=== PATIENT | male | born 1940 | race Caucasian/White ===

== ENCOUNTER 2018-04-24 16:16 | Inpatient (IN) ==
[2018-04-24] MEDS ORDERED: Acetaminophen 325 MG TABLET PO PRN (17:24)
[2018-04-24] MEDS ORDERED: Mag Hydrox/Al Hydrox/Simeth 30 ML UDC PO PRN (17:26)
[2018-04-24] MEDS ORDERED: Dextrose Gel 15 GM/37.5 ML TUBE PO PRN ×2 (17:35)
[2018-04-24] MEDS ORDERED: *HR* Dextrose 50 % in Water (Syg) 50 ML SYRINGE IVP PRN (17:35)
[2018-04-24] MEDS ORDERED: D5% in Water 1,000 ML IVC PRN (17:35)
[2018-04-24] MEDS: Sulfamethoxazole/Trimeth DS 1 EACH TABLET PO SCH (20:41)
[2018-04-24] MEDS: Furosemide 40 MG TABLET PO SCH (20:41)
[2018-04-24] MEDS: Apixaban 5 MG TABLET PO SCH (20:42)
[2018-04-24] MEDS: *HR* Metformin 500 MG TABLET PO SCH (20:42)
[2018-04-24] MEDS: Sucralfate 1 GM TABLET PO SCH (20:42)
[2018-04-24] MEDS: Amoxicillin/Clavulanate 500 MG TABLET PO SCH (20:42)
[2018-04-24] MEDS: Insulin LISPRO 300 UNITS/3 ML VIAL SQ SCH (20:49)
[2018-04-25 05:43] LABS: Hematocrit 31.7 % (37.5-50.1); Hemoglobin 9.9 g/dL (12.9-16.9); Mean Corpuscular HGB Conc 31.2 g/dL (31.6-35.5); Mean Corpuscular Volume 76.8 fL (83.0-100.0); Mean Platelet Volume 8.8 fL (9.4-12.4); Platelet Count 164 K/mcL (140-400); Red Blood Count 4.13 M/mcL (4.19-5.50)
[2018-04-25 05:59] LABS: BUN/Creatinine Ratio 14 (6-26); Blood Urea Nitrogen 18 mg/dL (8-23); Calcium 8.5 mg/dL (8.6-10.3); Carbon Dioxide 27 mEq/L (23-29); Chloride 104 mEq/L (98-107); Glucose 149 mg/dL (70-105); Osmolality,Calculated 291 (280-300); Potassium 3.2 mEq/L (3.5-5.1); Sodium 138 mEq/L (136-145); eGFR For Non-African Americans 52 (> 60)
[2018-04-25] MEDS: Sucralfate 1 GM TABLET PO SCH ×4 (08:13→21:45)
[2018-04-25] MEDS: *HR* Metformin 500 MG TABLET PO SCH ×2 (08:14→21:44)
[2018-04-25] MEDS: Aspirin Enteric Coated 81 MG Tablet PO SCH (08:14)
[2018-04-25] MEDS: Furosemide 40 MG TABLET PO SCH ×2 (08:14→21:44)
[2018-04-25] MEDS: Lisinopril 20 MG TABLET PO SCH (08:14)
[2018-04-25] MEDS: Sulfamethoxazole/Trimeth DS 1 EACH TABLET PO SCH ×2 (08:14→21:43)
[2018-04-25] MEDS: Insulin LISPRO 300 UNITS/3 ML VIAL SQ SCH ×4 (08:15→21:44)
[2018-04-25] MEDS: Amoxicillin/Clavulanate 500 MG TABLET PO SCH ×3 (08:15→21:43)
[2018-04-25] MEDS: Apixaban 5 MG TABLET PO SCH ×2 (08:15→21:44)
[2018-04-25 09:25] LABS: C-Reactive Protein 67 mg/L (Less than 10)
[2018-04-25] MEDS ORDERED: Magnesium Sulfate 1 GM in D5% in Water 100 ML IVPB ONE (09:26)
--- NOTE | 2018-04-25 12:22 | Internal Med History&Physical ---
Date of Encounter: 04/25/18 Time of Encounter: 12:20 Assessment and Plan (1) Closed fracture of left elbow Current visit: Yes Status: Acute No acute issues. Left arm remains in soft cast with distal CV checks normal. Patient denies any discomforts to left arm. We will continue with physical therapy as tolerated. Patient to continue follow-up as outpatient with orthopedics. Qualifiers: Encounter type: initial encounter Qualified Code(s): S42.402A - Unspecified fracture of lower end of left humerus, initial encounter for closed fracture (2) UGI bleed Current visit: No Status: Acute No acute issues at this time. Patient shows no signs of active bleeding. Most recent hemoglobin was 9.9. Abdomen appears nonacute on exam. Patient is to follow up with GI as an outpatient. We will continue with serial labs to monitor patient's hemoglobin. Vital signs remained stable. Patient is no longer on Coumadin and started on Eliquis (3) PVD (peripheral vascular disease) Current visit: Yes Status: Chronic No acute issues at this time. Patient has recent history surgery at [facility] with a partial amputation of the second left toe and debridement of the lateral tip of the left great toe. Wound care orders were received by wound care after contacting surgeon from [facility]. Surgical wounds appear dry with no signs of infection noted. We will continue per wound care orders. (4) Atrial fibrillation Current visit: No Status: Chronic No acute issues. Heart rate remains irregular with a controlled ventricular rate less than 100. We will continue with current medications. Vital signs are stable. Qualifiers: Atrial fibrillation type: unspecified Qualified Code(s): I48.91 - Unspecified atrial fibrillation (5) Diabetes mellitus type 2 in nonobese Current visit: No Status: Chronic No acute issues. Patient's glucoses been well controlled with recent fingersticks less than 150. We will continue with current medications. Internal Medicine - H&P: HPI Chief complaint: left elbow fractue Admitted From: Intrahospital Transfer Plans for Post Hospital Care: Home History of present illness: Mr. Boswell is a 77 year old male , who was admitted to this facility for rehabilitation due to deconditioning. Patient was recently admitted to [facility] after presenting into the emergency department with episodes of GI bleeding. Per medical records patient had melena over the past few weeks since his recent admission to [facility] in [place] where he was evaluated for severe peripheral vascular disease. He was discharged at that time on Coumadin and at the time of his admission to [facility] he showed an INR of 12.3. His hemoglobin at that time was 9.1. Per medical records after presenting to the ED patient became hemodynamically unstable, resulting in admission to the ICU for further fluid resuscitation and support. Patient's INR was eventually reversed with the use of vitamin K. Patient was evaluated by GI service and at that time was determined not to have active GI bleed and recommendations for continued follow-up for EGD as an outpatient was made. Patient Coumadin was discontinued and he was discharged on Eliquis. Patient's most recent hemoglobin was 9.9 and continues to show no signs of active bleeding. Patient also presents with a partial amputation of his second left toe, with several sutures in place to the dorsal side. The tip of the left second toe shows dry eschar. Patient also has some debridement to the tip of the left lateral great toe, also with eschar in place. Wound care has contacted the surgeon from [facility] and received wound care orders. No drainage noted from either site and no signs of active infection. Patient denies any discomforts to the foot. Patient currently appears relaxed and denies any discomforts or shortness of breath. Past Med Surg Social Fam HX - Past Medical History Medical history: DVT, diabetes, hypertension Psychiatric history: no psych history - Past Surgical History Surgical History: no surgical history Additional surgical history: left 2nd toe amputated (about 3 weeks ago) - Social History Smoking Status: Never smoker Smokeless Tobacco Status: No Alcohol use: none Drug use: none - Family History Mother Hx Family Neurologic Disorders: Yes (CVA) Father Adopted: No Family Member Ethnicity: Non- Living Status: Hx Family Cardiac Disorders: No Hx Family Respiratory Disorders: No Hx Family Cancer: No Hx Family GI Disorders: No Hx Family Endocrine Disorder: No Hx Family Neuromuscular Disorders: No Hx Family Neurologic Disorders: No Hx Family HEENT Disorders: No Hx Family Autoimmune Disorders: Yes Internal Medicine - H&P: Meds metFORMIN [Glucophage] 500 mg PO BID 07/07/16 [History] Aspirin Enteric Coated [Aspirin EC] 81 mg PO DAILY 07/13/17 [History] Atorvastatin [Lipitor] 40 mg PO DAILY 07/13/17 [History] Furosemide [Lasix] 40 mg PO BID 07/13/17 [History] Amoxicillin/Clavulanate [Augmentin] 500 mg PO TID 04/21/18 [History] Lisinopril [Zestril] 20 mg PO DAILY 04/21/18 [History] Pantoprazole Sodium [Protonix] 40 mg PO DAILY 04/21/18 [History] Sulfamethoxazole/Trimeth DS [Bactrim Ds] 1 tab PO BID 04/21/18 [History] Cymbalta 20 mg PO DAILY 04/22/18 [History] Apixaban [Eliquis] 5 mg PO BID #60 tablet 04/24/18 [Rx] Metoprolol [Lopressor] 25 mg PO BID #60 tablet 04/24/18 [Rx] Sucralfate [Carafate] 1 gm PO QIDAC tablet 04/24/18 [Rx] 3 Allergy/AdvReac Type Severity Reaction Status Date / Time No Known Allergies Allergy Verified 04/22/18 08:11 All Systems PM: A 10-system review of systems was performed and is negative for pertinent findings except as documented above in the HPI. - Constitutional Constitutional: as per HPI, no chills, no fever(s), no night sweats - EENT Eyes: no change in vision, no discharge, no pain, no photophobia Ears: no ear discharge, no ear pain, no tinnitus Nose, mouth and throat: no dysphagia, no nasal discharge, no neck pain, no sore throat - Cardiovascular Cardiovascular ROS IM: as per HPI, no chest pain, no diaphoresis, no dyspnea, no lightheadedness, no palpitations, no syncope - Respiratory Respiratory: as per HPI, no cough, no dyspnea, no wheezing, no excessive phlegm production - Gastrointestinal Gastrointestinal: as per HPI, no abdominal pain, no diarrhea, no hematemesis, no hematochezia, no melena, no nausea, no vomiting - Musculoskeletal Musculoskeletal ROS IM: as per HPI, no numbness, no tingling - Integumentary Integumentary IM: as per HPI, no rash, no unusual bruising - Neurological Neurological ROS: no confusion, no convulsions, no focal weakness, no numbness, no tingling, no tremor(s) - Hematologic/Lymphatic Hematologic/Lymphatic: no easy bruising - Constitutional Vitals: Temp Pulse Resp BP Pulse Ox 98.4 F 55 14 95/64 96 04/25/18 11:20 04/25/18 11:20 04/25/18 11:20 04/25/18 11:20 04/25/18 11:20 General appearance: Present: A&O X 3 - Head Head exam: Present: atraumatic, normocephalic - Eye Eye exam: Present: PERRL, conjuntiva pink, sclera anicteric Pupils: Present: PERRL - Neck Neck exam general surgery: Present: supple, trachea midline. Absent: lymphadenopathy - Respiratory Respiratory exam: Present: CTAB. Absent: accessory muscle use, rales, rhonchi, wheezes - Cardiovascular Cardiovascular exam: Present: irregular rhythm, RRR, +S1, +S2. Absent: diastolic murmur, gallop, rubs, systolic murmur Additional comments: Patient shows irregular heart rate with a controlled ventricular rate love less than 100. - GI/Abdominal GI/Abdominal exam: Present: normal bowel sounds, soft, no peritoneal signs. Absent: distended, tenderness - Extremities Exam Extremities exam: Present: warm, radial pulses palpable and symmetrical. Absent : calf tenderness, cyanotic, pedal edema Additional comments: Patient has a partial surgical amputation of his second left toe with sutures remain in place on the dorsal side. Right eschar noted to tip of the second great toe. Patient also has a debrided area to the lateral side of the tip of the left great toe. This too shows no drainage with dry eschar in place. Pulses easily found with Doppler to bilateral feet on both PT and DP pulses. Left foot appears slightly dusky. Bilateral feet have sluggish capillary refill , but both feet remain warm to touch. - Neurological Exam Neurological exam: Present: CN II-XII intact, oriented X3, no focal deficits. Absent: pronater drift, facial droop, speech deficit - Skin Skin exam: Present: dry, intact Internal Med - H&P Results - Labs CBC & Chem 7: 04/25/18 05:35 04/25/18 05:35 Labs: Short CBC 04/25/18 Range/Units 05:35 WBC 7.9 (4.3-11.1) K/mcL Hgb 9.9 L (12.9-16.9) g/dL Hct 31.7 L (37.5-50.1) % Plt Count 164 (140-400) K/mcL BMP 04/25/18 05:35 Sodium 138 Potassium 3.2 L Chloride 104 Carbon Dioxide 27 BUN 18 Creatinine 1.32 H Glucose 149 H Calcium 8.5 L
[2018-04-26] MEDS: Amoxicillin/Clavulanate 500 MG TABLET PO SCH ×3 (08:13→21:48)
[2018-04-26] MEDS: Apixaban 5 MG TABLET PO SCH ×2 (08:13→21:47)
[2018-04-26] MEDS: Sulfamethoxazole/Trimeth DS 1 EACH TABLET PO SCH ×2 (08:13→21:47)
[2018-04-26] MEDS: *HR* Metformin 500 MG TABLET PO SCH ×2 (08:13→21:47)
[2018-04-26] MEDS: Lisinopril 20 MG TABLET PO SCH (08:13)
[2018-04-26] MEDS: Sucralfate 1 GM TABLET PO SCH ×4 (08:13→21:47)
[2018-04-26] MEDS: Insulin LISPRO 300 UNITS/3 ML VIAL SQ SCH ×4 (08:14→21:11)
[2018-04-26] MEDS: Furosemide 40 MG TABLET PO SCH ×2 (08:14→21:48)
[2018-04-26] MEDS: Aspirin Enteric Coated 81 MG Tablet PO SCH (08:14)
--- NOTE | 2018-04-26 12:29 | Internal Med Progress Note ---
Date of Encounter: 04/26/18 Time of Encounter: 12:26 - Assessment and plan (1) Closed fracture of left elbow Current Visit: Yes Status: Acute Assessment and plan: Left arm remains in a splint-type cast with distal CV checks within normal limits. Patient denies any discomforts to arm. We will continue with current physical therapy. Qualifiers: Encounter type: initial encounter Qualified Code(s): S42.402A - Unspecified fracture of lower end of left humerus, initial encounter for closed fracture (2) UGI bleed Current Visit: No Status: Acute Assessment and plan: No acute issues. Patient shows no signs of active bleeding. We will continue to monitor labs for hemoglobin, which his last reading was 9.9 (3) PVD (peripheral vascular disease) Current Visit: Yes Status: Chronic Assessment and plan: Patient's wounds to his left great toe and second left toe appeared to be healing well with no signs of infection. We will continue with current daily wound care per surgeon orders. Patient denies any pain to wounds. (4) Atrial fibrillation Current Visit: No Status: Chronic Assessment and plan: Heart rate remains irregular with ventricular rate less than 100. We will continue on current home medications. Qualifiers: Atrial fibrillation type: unspecified Qualified Code(s): I48.91 - Unspecified atrial fibrillation (5) Diabetes mellitus type 2 in nonobese Current Visit: No Status: Chronic Assessment and plan: Glucose has been well controlled less than 150. We will continue with fingersticks and current coverage. - Time Spent With Patient less than 15 minutes - Subjective Interval history: Patient appears relaxed and currently denies any discomforts or shortness of breath. Nursing reports patient with slight confusion overnight. Currently patient appears appropriate with conversation but noted some difficulty in answering complex questions. - Constitutional Vitals: Temp Pulse Resp BP Pulse Ox 98.2 F 72 16 107/64 99 04/26/18 07:29 04/26/18 07:29 04/26/18 07:29 04/26/18 07:29 04/26/18 07:29 General appearance: Present: A&O X 3 Exam: Reports of some confusion overnight currently is appropriate with answers. Noted difficulty answering complex questions - Head Head exam: Present: atraumatic, normocephalic - Eye Eye exam: Present: PERRL, conjuntiva pink, sclera anicteric Pupils: Present: PERRL - Neck Neck exam general surgery: Present: supple, trachea midline. Absent: lymphadenopathy - Respiratory Respiratory exam: Present: CTAB. Absent: accessory muscle use, rales, rhonchi, wheezes - Cardiovascular Cardiovascular exam: Present: irregular rhythm, RRR, +S1, +S2. Absent: diastolic murmur, gallop, rubs, systolic murmur Additional comments: Heart rate remains irregular with controlled ventricular rate less than 100. - GI/Abdominal GI/Abdominal exam: Present: normal bowel sounds, soft, no peritoneal signs. Absent: distended, tenderness - Extremities Exam Extremities exam: Present: warm, radial pulses palpable and symmetrical. Absent : calf tenderness, cyanotic, pedal edema Additional comments: Left great toe with orthopedic area to the lateral tip which remains dry and intact with no drainage. Left second toe with partial amputation and also continues to have a scabbed area covering the tip with sutures in place. No drainage noted. No signs of infectious process. Left arm remains with soft splint type cast in place - Neurological Exam Neurological exam: Present: CN II-XII intact, oriented X3, no focal deficits. Absent: pronater drift, facial droop, speech deficit - Skin Skin exam: Present: dry, intact Internal Medicine: Result - Labs CBC & Chem 7: 04/25/18 05:35 04/25/18 05:35 Consult Discharge Plan - Plan Referrals: Kenny Mendoza DO [Primary Care Provider] -
[2018-04-26 14:29] LABS: Calcium 9.2 mg/dL (8.6-10.3); Potassium 4.1 mEq/L (3.5-5.1)
[2018-04-27] MEDS: Amoxicillin/Clavulanate 500 MG TABLET PO SCH ×3 (08:49→21:22)
[2018-04-27] MEDS: Sucralfate 1 GM TABLET PO SCH ×4 (08:50→21:23)
[2018-04-27] MEDS: Apixaban 5 MG TABLET PO SCH ×2 (08:50→21:31)
[2018-04-27] MEDS: Furosemide 40 MG TABLET PO SCH ×2 (08:50→21:31)
[2018-04-27] MEDS: Aspirin Enteric Coated 81 MG Tablet PO SCH (08:50)
[2018-04-27] MEDS: Sulfamethoxazole/Trimeth DS 1 EACH TABLET PO SCH ×2 (08:50→21:31)
[2018-04-27] MEDS: Lisinopril 20 MG TABLET PO SCH (08:50)
[2018-04-27] MEDS: *HR* Metformin 500 MG TABLET PO SCH ×2 (08:50→21:05)
[2018-04-27] MEDS: Insulin LISPRO 300 UNITS/3 ML VIAL SQ SCH ×4 (09:27→21:06)
--- NOTE | 2018-04-27 12:45 | Internal Med Progress Note ---
Date of Encounter: 04/27/18 Time of Encounter: 12:30 - Assessment and plan (1) SLY (acute kidney injury) Current Visit: No Status: Acute Assessment and plan: Will repeat a BMP now. In case Cr continues to rise, will stop BP meds since the patient's BP has been on the softer side. Encouraged increased fluid intake for now. (2) Atrial fibrillation Current Visit: No Status: Chronic Assessment and plan: Continue current regimen. Qualifiers: Atrial fibrillation type: unspecified Qualified Code(s): I48.91 - Unspecified atrial fibrillation (3) Diabetes mellitus type 2 in nonobese Current Visit: No Status: Chronic Assessment and plan: Continue current regimen. (4) UGI bleed Current Visit: No Status: Acute Assessment and plan: Clinical monitoring as appropriate. (5) Closed fracture of left elbow Current Visit: Yes Status: Acute Assessment and plan: Routine care/management per PT. Qualifiers: Encounter type: initial encounter Qualified Code(s): S42.402A - Unspecified fracture of lower end of left humerus, initial encounter for closed fracture (6) PVD (peripheral vascular disease) Current Visit: Yes Status: Chronic Assessment and plan: Routine care/managment per wound care and our nursing staff. - Time Spent With Patient less than 15 minutes - Subjective Interval history: No particular concern. Patient states he is probably not drinking enough fluid. - Constitutional Vitals: Temp Pulse Resp BP Pulse Ox 97.8 F 67 16 99/65 98 04/27/18 11:44 04/27/18 11:44 04/27/18 11:44 04/27/18 11:44 04/27/18 11:44 General appearance: Present: A&O X 3 Exam: Gen: A&Ox3, NAD. HEENT: NCAT. Neck: No palpable lymphadenopathy or thyromegaly. CV: RRR, S1S2. No murmur. Capillary refill < 2 seconds. Pulm: CTAB. Abd: (+)BS. NDNT. Neuro: Generalized weakness, otherwise non-focal. Skin: No rash. Ext: No pitting edema. LUE in cast. Internal Medicine: Result - Labs CBC & Chem 7: 04/25/18 05:35 04/26/18 13:39 Labs: BMP 04/26/18 13:39 Sodium 136 Potassium 4.1 Chloride 102 Carbon Dioxide 25 BUN 22 Creatinine 1.66 H Glucose 139 H Calcium 9.2 Consult Discharge Plan - Plan Referrals: ColopyKenny DO [Primary Care Provider] -
[2018-04-27 14:05] LABS: Calcium 9.1 mg/dL (8.6-10.3); Potassium 4.6 mEq/L (3.5-5.1)
[2018-04-28] MEDS ORDERED: 0.9 % Sodium Chloride 500 ML IVC ONE (08:00)
[2018-04-28] MEDS: Insulin LISPRO 300 UNITS/3 ML VIAL SQ SCH ×4 (08:02→21:14)
[2018-04-28] MEDS: Sucralfate 1 GM TABLET PO SCH ×4 (08:15→21:02)
--- NOTE | 2018-04-28 08:41 | Internal Med Progress Note ---
Date of Encounter: 04/28/18 Time of Encounter: 08:20 - Assessment and plan (1) SLY (acute kidney injury) Current Visit: No Status: Acute Assessment and plan: Encouraged drinking more fluid over the course of today. Will also give a 500cc bolus. Continue to monitor. Will consider further studies in case Cr fails to improve by tomorrow. (2) Atrial fibrillation Current Visit: No Status: Chronic Assessment and plan: Continue current regimen. Qualifiers: Atrial fibrillation type: unspecified Qualified Code(s): I48.91 - Unspecified atrial fibrillation (3) Diabetes mellitus type 2 in nonobese Current Visit: No Status: Chronic Assessment and plan: Continue current regimen. (4) UGI bleed Current Visit: No Status: Acute Assessment and plan: Clinical monitoring as appropriate. (5) Closed fracture of left elbow Current Visit: Yes Status: Acute Assessment and plan: Routine care/management per PT. Will change dressing today given fecal stain from yesterday. Qualifiers: Encounter type: initial encounter Qualified Code(s): S42.402A - Unspecified fracture of lower end of left humerus, initial encounter for closed fracture (6) PVD (peripheral vascular disease) Current Visit: Yes Status: Chronic Assessment and plan: Routine care/managment per wound care and our nursing staff. - Time Spent With Patient less than 15 minutes - Subjective Interval history: Feeling "pretty good." Has been trying to eat and drink more. Stooled yesterday and had some feces to the cast/splint that was cleaned. - Constitutional Vitals: Temp Pulse Resp BP Pulse Ox 98.7 F 72 16 90/60 98 04/28/18 07:29 04/28/18 07:29 04/28/18 07:29 04/28/18 07:29 04/28/18 07:29 General appearance: Present: A&O X 3 Exam: Gen: A&Ox3, NAD. HEENT: NCAT. Neck: No palpable lymphadenopathy or thyromegaly. CV: RRR, S1S2. No murmur. Capillary refill < 2 seconds. Pulm: CTAB. Abd: (+)BS. NDNT. Neuro: Generalized weakness, otherwise non-focal. Skin: No rash. Ext: No pitting edema. LUE in cast. Internal Medicine: Result - Labs CBC & Chem 7: 04/25/18 05:35 04/27/18 13:30 Labs: BMP 04/27/18 13:30 Sodium 135 L Potassium 4.6 Chloride 102 Carbon Dioxide 24 BUN 21 Creatinine 1.64 H Glucose 108 H Calcium 9.1 Consult Discharge Plan - Plan Referrals: Kenny Mendoza DO [Primary Care Provider] -
[2018-04-28] MEDS: Lisinopril 20 MG TABLET PO SCH (09:54)
[2018-04-28] MEDS: Amoxicillin/Clavulanate 500 MG TABLET PO SCH ×3 (10:01→20:57)
[2018-04-28] MEDS: Apixaban 5 MG TABLET PO SCH ×2 (10:02→21:00)
[2018-04-28] MEDS: Furosemide 40 MG TABLET PO SCH ×2 (10:02→21:02)
[2018-04-28] MEDS: *HR* Metformin 500 MG TABLET PO SCH (10:03)
[2018-04-28] MEDS: Aspirin Enteric Coated 81 MG Tablet PO SCH (10:03)
[2018-04-28] MEDS: Sulfamethoxazole/Trimeth DS 1 EACH TABLET PO SCH ×2 (10:03→20:58)
[2018-04-29 06:18] LABS: Hematocrit 31.5 % (37.5-50.1); Hemoglobin 9.6 g/dL (12.9-16.9); Mean Corpuscular HGB Conc 30.5 g/dL (31.6-35.5); Mean Corpuscular Hemoglobin 23.5 pg (28.0-33.3); Mean Corpuscular Volume 77.2 fL (83.0-100.0); Mean Platelet Volume 9.3 fL (9.4-12.4); Platelet Count 208 K/mcL (140-400); Red Blood Count 4.08 M/mcL (4.19-5.50); Red Cell Distribution Width 21.7 % (11.5-14.5)
[2018-04-29 06:30] LABS: Calcium 8.9 mg/dL (8.6-10.3); Potassium 4.3 mEq/L (3.5-5.1)
[2018-04-29] MEDS: Sucralfate 1 GM TABLET PO SCH ×4 (06:30→21:24)
[2018-04-29] MEDS: Insulin LISPRO 300 UNITS/3 ML VIAL SQ SCH ×4 (09:09→21:25)
[2018-04-29] MEDS: Furosemide 40 MG TABLET PO SCH (09:17)
[2018-04-29] MEDS: Amoxicillin/Clavulanate 500 MG TABLET PO SCH ×3 (09:17→21:24)
[2018-04-29] MEDS: Lisinopril 20 MG TABLET PO SCH (09:18)
[2018-04-29] MEDS: Sulfamethoxazole/Trimeth DS 1 EACH TABLET PO SCH ×2 (09:18→21:24)
[2018-04-29] MEDS: Aspirin Enteric Coated 81 MG Tablet PO SCH (09:18)
[2018-04-29] MEDS: Apixaban 5 MG TABLET PO SCH ×2 (09:18→21:25)
--- NOTE | 2018-04-29 11:24 | Internal Med Progress Note ---
Date of Encounter: 04/29/18 Time of Encounter: 10:30 - Assessment and plan (1) SLY (acute kidney injury) Current Visit: No Status: Acute Assessment and plan: FeUrea, UA, JONNATHAN, stopping lisinopril and furosemide for now, avoid nephrotoxins , trend Cr, will initiate gentle hydration. (2) Atrial fibrillation Current Visit: No Status: Chronic Assessment and plan: Continue current regimen. Qualifiers: Atrial fibrillation type: unspecified Qualified Code(s): I48.91 - Unspecified atrial fibrillation (3) Diabetes mellitus type 2 in nonobese Current Visit: No Status: Chronic Assessment and plan: Continue current regimen. (4) UGI bleed Current Visit: No Status: Acute Assessment and plan: Asymptomatic at this time, but given microcytic anemia, will obtain FOBT, iron studies, and reticulocyte. (5) Closed fracture of left elbow Current Visit: Yes Status: Acute Assessment and plan: Routine care/management per PT. Will change dressing today given fecal stain from yesterday. Qualifiers: Encounter type: initial encounter Qualified Code(s): S42.402A - Unspecified fracture of lower end of left humerus, initial encounter for closed fracture (6) PVD (peripheral vascular disease) Current Visit: Yes Status: Chronic Assessment and plan: Routine care/managment per wound care and our nursing staff. (7) Microcytic anemia Current Visit: Yes Status: Acute Assessment and plan: FOBT, iron studies, and reticulocyte. - Time Spent With Patient 25 - 35 minutes - Subjective Interval history: Feeling "okay." No concern at this time. - Constitutional Vitals: Temp Pulse Resp BP Pulse Ox 98.2 F 78 16 98/56 96 04/29/18 06:43 04/29/18 09:29 04/29/18 06:43 04/29/18 09:29 04/29/18 06:43 General appearance: Present: A&O X 3 Exam: Gen: A&Ox3, NAD. HEENT: NCAT. Neck: No palpable lymphadenopathy or thyromegaly. CV: RRR, S1S2. No murmur. Capillary refill < 2 seconds. Pulm: CTAB. Abd: (+)BS. NDNT. Neuro: Generalized weakness, otherwise non-focal. Skin: No rash. A palpable knot (chronic per the patient and family) along with mild bruising noted below the right CVA. Ext: No pitting edema. LUE in cast. Internal Medicine: Result - Labs CBC & Chem 7: 04/29/18 05:20 04/29/18 05:20 Labs: Short CBC 04/29/18 Range/Units 05:20 WBC 9.1 (4.3-11.1) K/mcL Hgb 9.6 L (12.9-16.9) g/dL Hct 31.5 L (37.5-50.1) % Plt Count 208 (140-400) K/mcL BMP 04/29/18 05:20 Sodium 137 Potassium 4.3 Chloride 105 Carbon Dioxide 24 BUN 22 Creatinine 1.75 H Glucose 120 H Calcium 8.9 Consult Discharge Plan - Plan Referrals: Kenny Mendoza DO [Primary Care Provider] -
[2018-04-29] MEDS: 0.9 % Sodium Chloride 1,000 ML IVC SCH (13:54)
[2018-04-29 15:03] LABS: Bilirubin,Urine Negative (Negative); Blood,Urine Small (Negative); Clarity,Urine Clear (Clear); Color,Urine Yellow (Yellow); Glucose,Urine (UA) Normal (Normal); Ketones,Urine Negative (Negative); Leukocyte Esterase,Urine Negative (Negative); Nitrite,Urine Negative (Negative); PH,Urine 6.5 pH Units (5.0-8.0); Protein,Urine Trace mg/dL (Neg-Trace); Urobilinogen,Urine Normal (Normal)
[2018-04-29 16:14] LABS: Squamous Epithelial Cell,Urine Few per lpf (None-Few)
[2018-04-30 05:52] LABS: Hematocrit 29.5 % (37.5-50.1); Hemoglobin 9.1 g/dL (12.9-16.9); Mean Corpuscular HGB Conc 30.8 g/dL (31.6-35.5); Mean Corpuscular Hemoglobin 23.8 pg (28.0-33.3); Mean Corpuscular Volume 77.2 fL (83.0-100.0); Platelet Count 206 K/mcL (140-400); Red Blood Count 3.82 M/mcL (4.19-5.50); Red Cell Distribution Width 22.2 % (11.5-14.5)
[2018-04-30 05:59] LABS: Immature Reticulocyte % 21.6 % (11.0-38.0); Retculocyte # 0.03 M/mcL (0.05-0.10); Reticulocyte % 0.7 % (1.6-2.8)
[2018-04-30 06:08] LABS: Calcium 8.3 mg/dL (8.6-10.3); Potassium 4.1 mEq/L (3.5-5.1)
[2018-04-30] MEDS: Sulfamethoxazole/Trimeth DS 1 EACH TABLET PO SCH ×2 (08:08→21:05)
[2018-04-30] MEDS: Apixaban 5 MG TABLET PO SCH ×2 (08:08→21:06)
[2018-04-30] MEDS: Aspirin Enteric Coated 81 MG Tablet PO SCH (08:08)
[2018-04-30] MEDS: Amoxicillin/Clavulanate 500 MG TABLET PO SCH ×3 (08:08→21:04)
[2018-04-30] MEDS: Sucralfate 1 GM TABLET PO SCH ×4 (08:08→21:07)
[2018-04-30] MEDS: Insulin LISPRO 300 UNITS/3 ML VIAL SQ SCH ×3 (08:14→16:55)
[2018-04-30 09:31] LABS: % Iron Saturation 6 % (20-55); C-Reactive Protein 112 mg/L (Less than 10); Iron 16 mcg/dL (65-175); Transferrin 176 mg/dL (203-362)
[2018-04-30 09:50] LABS: Ferritin 124 ng/mL (20-250)
--- NOTE | 2018-04-30 12:09 | Internal Med Progress Note ---
Date of Encounter: 04/30/18 Time of Encounter: 12:07 - Assessment and plan (1) SLY (acute kidney injury) Current Visit: Yes Status: Acute Assessment and plan: Be UN 24 creatinine 1.85. Lasix stopped yesterday. Continue IV fluids as ordered. Will repeat labs in the morning. (2) Atrial fibrillation Current Visit: Yes Status: Chronic Assessment and plan: Rate and rhythm controlled. Continue eliquis. Qualifiers: Atrial fibrillation type: unspecified Qualified Code(s): I48.91 - Unspecified atrial fibrillation (3) Diabetes mellitus type 2 in nonobese Current Visit: Yes Status: Chronic Assessment and plan: Controlled with current medication. Monitor fingerstick blood sugar. Will adjust medicines as necessary. (4) UGI bleed Current Visit: Yes Status: Acute Assessment and plan: Hemoglobin 9.1. No active sign of bleeding. Asymptomatic. Will repeat labs in the morning. 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 (6) Closed fracture of left elbow Current Visit: Yes Status: Acute Assessment and plan: Continue soft cast. Monitor circulation. Follow up with ortho as scheduled. Qualifiers: Encounter type: initial encounter Qualified Code(s): S42.402A - Unspecified fracture of lower end of left humerus, initial encounter for closed fracture - Time Spent With Patient less than 15 minutes - Subjective Interval history: Participating well with therapy. Denies pain. Left arm remains in soft cast. Hemoglobin 9.1, no active sign of bleeding and patient asymptomatic. Receiving IV fluids for acute kidney injury. Wound care following for wound on left 2nd toe. Maintaining appetite and hydration. States bowels and bladder are moving as normal. Lisinopril and Lasix stopped yesterday to 2 hypotension. - Constitutional Vitals: Temp Pulse Resp BP Pulse Ox 99.2 F 77 18 93/59 96 04/30/18 07:52 04/30/18 07:52 04/30/18 07:52 04/30/18 07:52 04/30/18 07:52 General appearance: Present: A&O X 3 - Head Head exam: Present: atraumatic, normocephalic - Eye Eye exam: Present: PERRL, conjuntiva pink, sclera anicteric Pupils: Present: PERRL - Neck Neck exam general surgery: Present: supple, trachea midline. Absent: lymphadenopathy - Respiratory Respiratory exam: Present: CTAB. Absent: accessory muscle use, rales, rhonchi, wheezes - Cardiovascular Cardiovascular exam: Present: RRR, +S1, +S2. Absent: diastolic murmur, gallop, rubs, systolic murmur - GI/Abdominal GI/Abdominal exam: Present: normal bowel sounds, soft, no peritoneal signs. Absent: distended, tenderness - Extremities Exam Extremities exam: Present: normal inspection, warm, radial pulses palpable and symmetrical. Absent: calf tenderness, cyanotic, pedal edema Additional comments: Left arm and soft cast. Capillary refill normal. - Neurological Exam Neurological exam: Present: CN II-XII intact, oriented X3, no focal deficits. Absent: pronater drift, facial droop, speech deficit - Skin Skin exam: Present: dry, intact Additional comments: Left 2nd toe dressing dry and intact. Internal Medicine: Result - Labs CBC & Chem 7: 04/30/18 05:20 04/30/18 05:20 Labs: Short CBC 04/30/18 Range/Units 05:20 WBC 9.4 (4.3-11.1) K/mcL Hgb 9.1 L (12.9-16.9) g/dL Hct 29.5 L (37.5-50.1) % Plt Count 206 (140-400) K/mcL BMP 04/30/18 05:20 Sodium 137 Potassium 4.1 Chloride 106 Carbon Dioxide 24 BUN 24 H Creatinine 1.85 H Glucose 133 H Calcium 8.3 L Urine 04/29/18 Range/Units 13:55 Urine Color Yellow (Yellow) Urine Clarity Clear (Clear) Urine pH 6.5 (5.0-8.0) pH Units Ur Specific [place] 1.020 (1.010-1.025) Urine Protein Trace (Neg-Trace) mg/dL Urine Glucose (UA) Normal (Normal) mg/dL Consult Discharge Plan - Plan Referrals: Kenny Mendoza DO [Primary Care Provider] -
[2018-04-30] MEDS: 0.9 % Sodium Chloride 1,000 ML IVC SCH (13:19)
[2018-05-01] MEDS: Insulin LISPRO 300 UNITS/3 ML VIAL SQ SCH ×5 (02:20→21:13)
[2018-05-01] MEDS: 0.9 % Sodium Chloride 1,000 ML IVC SCH ×3 (04:36→22:50)
[2018-05-01 06:15] LABS: Basophils # 0.1 K/mcL (0.0-0.2); Basophils % 0.6 %; Eosinophils # 0.4 K/mcL (0.0-0.6); Eosinophils % 4.2 %; Hematocrit 26.6 % (37.5-50.1); Hemoglobin 8.3 g/dL (12.9-16.9); Lymphocytes # 0.9 K/mcL (0.6-4.6); Lymphocytes % 9.2 %; Mean Corpuscular HGB Conc 31.2 g/dL (31.6-35.5); Mean Corpuscular Hemoglobin 24.1 pg (28.0-33.3); Mean Corpuscular Volume 77.3 fL (83.0-100.0); Mean Platelet Volume 8.5 fL (9.4-12.4); Monocytes # 0.9 K/mcL (0.0-1.3); Neutrophils # 6.9 K/mcL (1.6-8.9); Platelet Count 186 K/mcL (140-400); Red Blood Count 3.44 M/mcL (4.19-5.50); Red Cell Distribution Width 21.6 % (11.5-14.5)
[2018-05-01 06:40] LABS: Calcium 8.3 mg/dL (8.6-10.3); Potassium 4.2 mEq/L (3.5-5.1)
[2018-05-01] MEDS: Apixaban 5 MG TABLET PO SCH ×2 (09:40→21:13)
[2018-05-01] MEDS: Amoxicillin/Clavulanate 500 MG TABLET PO SCH ×3 (09:40→21:12)
[2018-05-01] MEDS: Sulfamethoxazole/Trimeth DS 1 EACH TABLET PO SCH ×2 (09:40→21:12)
[2018-05-01] MEDS: Aspirin Enteric Coated 81 MG Tablet PO SCH (09:40)
--- NOTE | 2018-05-01 10:35 | Internal Med Progress Note ---
Date of Encounter: 05/01/18 Time of Encounter: 10:33 - Assessment and plan (1) SLY (acute kidney injury) Current Visit: Yes Status: Acute Assessment and plan: BUN 18 creatinine 1.39. Continue IV fluids as ordered. improving (2) Atrial fibrillation Current Visit: Yes Status: Chronic Assessment and plan: Rate and rhythm controlled. Continue eliquis. Qualifiers: Atrial fibrillation type: unspecified Qualified Code(s): I48.91 - Unspecified atrial fibrillation (3) Diabetes mellitus type 2 in nonobese Current Visit: Yes Status: Chronic Assessment and plan: Controlled with current medication. Monitor fingerstick blood sugar. Will adjust medicines as necessary. (4) UGI bleed Current Visit: Yes Status: Acute Assessment and plan: Hemoglobin 8.3. No active sign of bleeding. Asymptomatic. Scheduled for scope with Dr. Coleman tomorrow. Will repeat labs in a.m. 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 (6) Closed fracture of left elbow Current Visit: Yes Status: Acute Assessment and plan: Continue soft cast. Monitor circulation. Follow up with ortho today. Qualifiers: Encounter type: initial encounter Qualified Code(s): S42.402A - Unspecified fracture of lower end of left humerus, initial encounter for closed fracture - Subjective Interval history: Participating well with therapy. Denies pain. Left arm remains in soft cast. Has ortho appointment today . Hemoglobin 8.3, no active sign of bleeding and patient asymptomatic. Scheduled for scope with Dr. Coleman tomorrow. Wound care following for wound on left 2nd toe. Maintaining appetite and hydration. States bowels and bladder are moving as normal. - Constitutional Vitals: Temp Pulse Resp BP Pulse Ox 98.0 F 88 16 103/66 94 05/01/18 07:37 05/01/18 07:37 05/01/18 07:37 05/01/18 07:37 05/01/18 07:37 General appearance: Present: A&O X 3, pleasant, no acute distress, answers questions appropriately - Head Head exam: Present: atraumatic, normocephalic - Eye Eye exam: Present: PERRL, conjuntiva pink, sclera anicteric Pupils: Present: PERRL - Neck Neck exam general surgery: Present: supple, trachea midline. Absent: lymphadenopathy - Respiratory Respiratory exam: Present: CTAB. Absent: accessory muscle use, rales, rhonchi, wheezes - Cardiovascular Cardiovascular exam: Present: RRR, +S1, +S2. Absent: diastolic murmur, gallop, rubs, systolic murmur - GI/Abdominal GI/Abdominal exam: Present: normal bowel sounds, soft, no peritoneal signs. Absent: distended, tenderness - Extremities Exam Extremities exam: Present: warm, radial pulses palpable and symmetrical. Absent : calf tenderness, cyanotic, pedal edema Additional comments: left arm soft cast, cap refill normal. - Neurological Exam Neurological exam: Present: CN II-XII intact, oriented X3, no focal deficits. Absent: pronater drift, facial droop, speech deficit - Skin Skin exam: Present: dry, intact Internal Medicine: Result - Labs CBC & Chem 7: 05/01/18 06:00 05/01/18 06:00 Labs: Short CBC 05/01/18 Range/Units 06:00 WBC 9.3 (4.3-11.1) K/mcL Hgb 8.3 L (12.9-16.9) g/dL Hct 26.6 L (37.5-50.1) % Plt Count 186 (140-400) K/mcL Neutrophils # 6.9 (1.6-8.9) K/mcL BMP 05/01/18 06:00 Sodium 136 Potassium 4.2 Chloride 108 H Carbon Dioxide 23 BUN 18 Creatinine 1.39 H Glucose 112 H Calcium 8.3 L - Impressions Impressions Retroperitoneum Ultrasound 04/30/18 11:13 IMPRESSION: Unremarkable ultrasound of the kidneys and urinary bladder. D/ / Peggy Grodon MD / Peggy Gordon MD Interpreting Provider: Peggy Gordon MD Consult Discharge Plan - Plan Instructions: Upper Gastrointestinal Endoscopy (DC), Moderate Sedation (DC), Fall Prevention (DC) Referrals: Colopy,Kenny Santos DO [Primary Care Provider] -
[2018-05-01] MEDS: Sucralfate 1 GM TABLET PO SCH ×4 (11:54→21:13)
[2018-05-02 05:45] LABS: Basophils % 0.4 %; Eosinophils # 0.7 K/mcL (0.0-0.6); Eosinophils % 7.9 %; Hematocrit 27.8 % (37.5-50.1); Hemoglobin 8.6 g/dL (12.9-16.9); Lymphocytes # 0.7 K/mcL (0.6-4.6); Lymphocytes % 7.8 %; Mean Corpuscular HGB Conc 30.9 g/dL (31.6-35.5); Mean Corpuscular Hemoglobin 24.3 pg (28.0-33.3); Mean Corpuscular Volume 78.5 fL (83.0-100.0); Mean Platelet Volume 8.8 fL (9.4-12.4); Monocytes # 0.6 K/mcL (0.0-1.3); Monocytes % 6.3 %; Neutrophils # 7.1 K/mcL (1.6-8.9); Platelet Count 214 K/mcL (140-400); Red Blood Count 3.54 M/mcL (4.19-5.50); Red Cell Distribution Width 21.3 % (11.5-14.5); Segmented Neutrophils % 76.6 %
[2018-05-02 06:03] LABS: Blood Urea Nitrogen 16 mg/dL (8-23); Calcium 8.5 mg/dL (8.6-10.3); Carbon Dioxide 24 mEq/L (23-29); Chloride 109 mEq/L (98-107); Glucose 152 mg/dL (70-105); Osmolality,Calculated 288 (280-300); Potassium 3.6 mEq/L (3.5-5.1); Sodium 137 mEq/L (136-145)
[2018-05-02 06:54] LABS: BUN/Creatinine Ratio 15 (6-26); eGFR For Non-African Americans > 60 (> 60)
--- NOTE | 2018-05-02 12:46 | Internal Med Progress Note ---
Date of Encounter: 05/02/18 Time of Encounter: 12:43 - Assessment and plan (1) Closed fracture of left elbow Current Visit: Yes Status: Acute Assessment and plan: Left arm remains in a full-length brace with distal CV checks within normal limits. Patient denies any discomforts to arm. We will continue with current physical therapy. Qualifiers: Encounter type: initial encounter Qualified Code(s): S42.402A - Unspecified fracture of lower end of left humerus, initial encounter for closed fracture (2) UGI bleed Current Visit: Yes Status: Acute Assessment and plan: Patient shows no acute signs of active bleeding. Patient has had a slight drop in his hemoglobin down to 8.6. Patient currently is scheduled for a EGD this morning and will await results with recommendations. (3) PVD (peripheral vascular disease) Current Visit: Yes Status: Chronic Assessment and plan: Patient's wounds to his left great toe and second left toe appeared to be healing well with no signs of infection. We will continue with current daily wound care per surgeon orders. Patient denies any pain to wounds. (4) Atrial fibrillation Current Visit: Yes Status: Chronic Assessment and plan: Heart rate remains irregular with ventricular rate less than 100. We will continue on current home medications. Qualifiers: Atrial fibrillation type: unspecified Qualified Code(s): I48.91 - Unspecified atrial fibrillation (5) Diabetes mellitus type 2 in nonobese Current Visit: Yes Status: Chronic Assessment and plan: Glucose has been well controlled less than 150. We will continue with fingersticks and current coverage. - Time Spent With Patient less than 15 minutes - Subjective Interval history: Patient appears relaxed and currently denies any discomforts or shortness of breath. Currently patient appears drowsy, but appropriate with conversation. Patient with planned EGD this morning. Left second toe amputation wound and left great toe wound continues to be monitored and managed by wound care. - Constitutional Vitals: Temp Pulse Resp BP Pulse Ox 98.3 F 78 18 124/74 97 05/02/18 12:20 05/02/18 12:20 05/02/18 12:20 05/02/18 12:20 05/02/18 12:20 General appearance: Present: A&O X 3, pleasant, no acute distress, answers questions appropriately - Head Head exam: Present: atraumatic, normocephalic - Eye Eye exam: Present: PERRL, conjuntiva pink, sclera anicteric Pupils: Present: PERRL - Neck Neck exam general surgery: Present: supple, trachea midline. Absent: lymphadenopathy - Respiratory Respiratory exam: Present: CTAB. Absent: accessory muscle use, rales, rhonchi, wheezes - Cardiovascular Cardiovascular exam: Present: RRR, +S1, +S2. Absent: diastolic murmur, gallop, rubs, systolic murmur - GI/Abdominal GI/Abdominal exam: Present: normal bowel sounds, soft, no peritoneal signs. Absent: distended, tenderness - Extremities Exam Extremities exam: Present: warm, radial pulses palpable and symmetrical. Absent : calf tenderness, cyanotic, pedal edema Additional comments: Left arm continues to have brace in place with distal CV checks showing normal. No edema. Patient continues to have Kerlix wrap in place to the left foot with dressing dry and intact. Left second toe with partial amputation and amputation wound bed remains dry. Left great toe with a debridement area on the anterior tip which also remains dry with no signs of infection noted. - Neurological Exam Neurological exam: Present: CN II-XII intact, oriented X3, no focal deficits. Absent: pronater drift, facial droop, speech deficit Additional comments: Patient was slightly drowsy but easily awakened. Patient was able to answer questions appropriately. No other focal neurological deficits noted on exam. - Skin Skin exam: Present: dry, intact Internal Medicine: Result - Labs CBC & Chem 7: 05/02/18 05:30 05/02/18 05:30 Labs: Short CBC 05/02/18 Range/Units 05:30 WBC 9.2 (4.3-11.1) K/mcL Hgb 8.6 L (12.9-16.9) g/dL Hct 27.8 L (37.5-50.1) % Plt Count 214 (140-400) K/mcL Neutrophils # 7.1 (1.6-8.9) K/mcL BMP 05/02/18 05:30 Sodium 137 Potassium 3.6 Chloride 109 H Carbon Dioxide 24 BUN 16 Creatinine 1.05 Glucose 152 H Calcium 8.5 L Consult Discharge Plan - Plan Instructions: Upper Gastrointestinal Endoscopy (DC), Moderate Sedation (DC), Fall Prevention (DC) Referrals: Kenny Mendoza DO [Primary Care Provider] -
--- NOTE | 2018-05-02 12:51 | Anesthesia Evaluation PreOp ---
Date of Encounter: 05/02/18 Time of Encounter: 12:49 - Past History Planned Operation: EGD Cardiac History: Arrhythmia (AFib), Other (PVD) Pulmonary History: Denies Any Significant HX BLASTING HELPER History: Denies Any Significant HX Other Medical History: Diabetes Type II Alcohol Use: none Drug use: none Medications and Allergies metFORMIN [Glucophage] 500 mg PO BID 07/07/16 [History] Aspirin Enteric Coated [Aspirin EC] 81 mg PO DAILY 07/13/17 [History] Atorvastatin [Lipitor] 40 mg PO DAILY 07/13/17 [History] Furosemide [Lasix] 40 mg PO BID 07/13/17 [History] Amoxicillin/Clavulanate [Augmentin] 500 mg PO TID 04/21/18 [History] Lisinopril [Zestril] 20 mg PO DAILY 04/21/18 [History] Pantoprazole Sodium [Protonix] 40 mg PO DAILY 04/21/18 [History] Sulfamethoxazole/Trimeth DS [Bactrim Ds] 1 tab PO BID 04/21/18 [History] Cymbalta 20 mg PO DAILY 04/22/18 [History] Apixaban [Eliquis] 5 mg PO BID #60 tablet 04/24/18 [Rx] Metoprolol [Lopressor] 25 mg PO BID #60 tablet 04/24/18 [Rx] Sucralfate [Carafate] 1 gm PO QIDAC tablet 04/24/18 [Rx] 3 Allergy/AdvReac Type Severity Reaction Status Date / Time No Known Allergies Allergy Verified 04/22/18 08:11 - Meds/Allergy Pre-op Review Medications Reviewed: Yes Allergies Reviewed: Yes Beta Blockers on Current Med List: Yes If Beta Blockers taken, Date/Time (Last Dose taken): 05/01 2113 Anesthesia Results - Labs 05/02/18 05:30 05/02/18 05:30 - Imaging Additional studies: ATRIAL FIBRILLATION LOW QRS VOLTAGE IN EXTREMITY LEADS POSSIBLE ANTERIOR MYOCARDIAL INFARCTION, PROBABLY OLD ABNORMAL RHYTHM ECG Electronically Signed On 04-24-2018 7:55:57 EDT by Arabella Hollins Anesthesia Exam Vital Signs/O2 Sat/Glucose, Most Recent Temp Pulse Resp BP Pulse Ox 98.3 F 78 18 124/74 97 05/02/18 12:20 05/02/18 12:20 05/02/18 12:20 05/02/18 12:20 05/02/18 12:20 Blood Glucose* 141 Height: 1.78m Weight: 77kg NPO (# of Hours): 8 Pain Scale: 0 Pain Scale Used: Numeric (1 - 10) - HEENT Pupil (Motor): Pupils equal Mallampati: II Teeth: Edentulous - BLASTING HELPER LOC: Oriented - Cardiac Rhythm: Irregular Murmur: None JVD: No - Pulmonary Breath Sounds: bilateral Clear Respiratory Effort: Symmetrical Anesthesia Assess/Plan ASA Score: 3 Modified [place] Scale for Level of Consciousness: Cooperative, oriented, and tranquil Anesthetic Plan: MAC Monitoring Plan: Standard Monitors Recovery Plan: PACU
[2018-05-02] MEDS ORDERED: Lidocaine -MPF 2% 2 ML VIAL ONE (13:02)
--- NOTE | 2018-05-02 13:40 | Anesthesia Evaluation Post Op ---
Date of Encounter: 05/02/18 Time of Encounter: 13:39 - Vital Signs Vital Signs: Vital Signs/O2 Sat/Glucose, Most Recent Temp Pulse Resp BP Pulse Ox 98.1 F 62 18 104/80 100 05/02/18 13:22 05/02/18 13:22 05/02/18 13:22 05/02/18 13:22 05/02/18 13:22 Blood Glucose* 141 - Lungs Lungs: Clear Ascult./Percussion - Airway Airway: Non-obstructed - Cardiovascular Irregular Rate - Mental Status Mental Status: Alert & Oriented, Answers Appropriately - Pain Pain Scale: 0 Pain Scale used: Numeric (1 - 10) - Nausea Vomiting Nausea Vomiting: Not Present - Hydration Hydration: Tolerates oral liquids - Discharge PostOp Status: Transfer Patient to floor
[2018-05-02] MEDS: Sucralfate 1 GM TABLET PO SCH ×3 (17:14→20:54)
[2018-05-02] MEDS: Insulin LISPRO 300 UNITS/3 ML VIAL SQ SCH ×4 (17:14→23:48)
[2018-05-02] MEDS: Aspirin Enteric Coated 81 MG Tablet PO SCH (17:15)
[2018-05-02] MEDS: Amoxicillin/Clavulanate 500 MG TABLET PO SCH ×2 (17:15→20:55)
[2018-05-02] MEDS: Sulfamethoxazole/Trimeth DS 1 EACH TABLET PO SCH ×2 (17:15→20:55)
[2018-05-02] MEDS: Apixaban 5 MG TABLET PO SCH ×2 (17:16→20:54)
[2018-05-02] MEDS: 0.9 % Sodium Chloride 1,000 ML IVC SCH (20:53)
[2018-05-03 04:47] LABS: Hematocrit 27.3 % (37.5-50.1); Hemoglobin 8.4 g/dL (12.9-16.9); Mean Corpuscular HGB Conc 30.8 g/dL (31.6-35.5); Mean Corpuscular Hemoglobin 24.1 pg (28.0-33.3); Mean Corpuscular Volume 78.2 fL (83.0-100.0); Mean Platelet Volume 8.9 fL (9.4-12.4); Platelet Count 261 K/mcL (140-400); Red Blood Count 3.49 M/mcL (4.19-5.50); Red Cell Distribution Width 21.3 % (11.5-14.5)
[2018-05-03 05:06] LABS: BUN/Creatinine Ratio 13 (6-26); Blood Urea Nitrogen 12 mg/dL (8-23); Calcium 8.3 mg/dL (8.6-10.3); Carbon Dioxide 22 mEq/L (23-29); Chloride 111 mEq/L (98-107); Glucose 162 mg/dL (70-105); Osmolality,Calculated 289 (280-300); Potassium 3.7 mEq/L (3.5-5.1); Sodium 138 mEq/L (136-145); eGFR For Non-African Americans > 60 (> 60)
[2018-05-03] MEDS: 0.9 % Sodium Chloride 1,000 ML IVC SCH ×3 (07:30→22:32)
[2018-05-03] MEDS: Sulfamethoxazole/Trimeth DS 1 EACH TABLET PO SCH ×2 (08:03→20:50)
[2018-05-03] MEDS: Apixaban 5 MG TABLET PO SCH ×2 (08:03→20:50)
[2018-05-03] MEDS: Amoxicillin/Clavulanate 500 MG TABLET PO SCH ×3 (08:03→20:50)
[2018-05-03] MEDS: Sucralfate 1 GM TABLET PO SCH ×4 (08:04→20:50)
[2018-05-03] MEDS: Insulin LISPRO 300 UNITS/3 ML VIAL SQ SCH ×4 (08:04→20:42)
[2018-05-03] MEDS: Aspirin Enteric Coated 81 MG Tablet PO SCH (08:04)
--- NOTE | 2018-05-03 14:11 | History & Physical Report ---
Date of Encounter: 05/03/18 Time of Encounter: 14:11 24 Hour HP Update - Instructions Instructions: If the History and Physical is less than 30 days old and was completed prior to A.M. admission and or procedure and has NOT been updated on calendar day of procedure please complete this update prior to performing procedure. - Update Patient reports changes in Medical Condition: No Changes in examination, assessment, or condition: No Changes in Medication: No Preop tests/diagnostics Reviewed: Yes Surgery Remains Indicated: Yes Consent for Planned Operative Procedure(s) Verified: Yes
--- NOTE | 2018-05-03 15:58 | Internal Med Progress Note ---
Date of Encounter: 05/03/18 Time of Encounter: 15:53 - Assessment and plan (1) Closed fracture of left elbow Current Visit: Yes Status: Acute Assessment and plan: Left arm remains in a full-length brace with distal CV checks within normal limits. Patient denies any discomforts to arm. We will continue with current physical therapy. Qualifiers: Encounter type: initial encounter Qualified Code(s): S42.402A - Unspecified fracture of lower end of left humerus, initial encounter for closed fracture (2) UGI bleed Current Visit: Yes Status: Acute Assessment and plan: Patient shows no acute signs of active bleeding. Patient has had a slight drop in his hemoglobin down to 8.4. Patient had a EGD yesterday showed no acute issues. No further orders were received from GI. Patient will continue to follow with GI. (3) PVD (peripheral vascular disease) Current Visit: Yes Status: Chronic Assessment and plan: Patient's wounds to his left great toe and second left toe appeared to be healing well with no signs of infection. We will continue with current daily wound care per surgeon orders. Patient denies any pain to wounds. (4) Atrial fibrillation Current Visit: Yes Status: Chronic Assessment and plan: Heart rate remains irregular with ventricular rate less than 100. We will continue on current home medications. Qualifiers: Atrial fibrillation type: unspecified Qualified Code(s): I48.91 - Unspecified atrial fibrillation (5) Diabetes mellitus type 2 in nonobese Current Visit: Yes Status: Chronic Assessment and plan: Glucose has been well controlled less than 150. We will continue with fingersticks and current coverage. - Time Spent With Patient less than 15 minutes - Subjective Interval history: Patient appears relaxed and currently denies any discomforts or shortness of breath. Patient remains appropriate with conversation. Patient had EGD yesterday and tolerated well. Left second toe amputation wound and left great toe wound continues to be monitored and managed by wound care. - Constitutional Vitals: Temp Pulse Resp BP Pulse Ox 97.9 F 82 16 126/72 97 05/03/18 06:57 05/03/18 06:57 05/03/18 06:57 05/03/18 06:57 05/03/18 06:57 General appearance: Present: A&O X 3, pleasant, no acute distress, answers questions appropriately Exam: patient is somewhat hesitate with some answers to complex questions. - Head Head exam: Present: atraumatic, normocephalic - Eye Eye exam: Present: PERRL, conjuntiva pink, sclera anicteric Pupils: Present: PERRL - Neck Neck exam general surgery: Present: supple, trachea midline. Absent: lymphadenopathy - Respiratory Respiratory exam: Present: CTAB. Absent: accessory muscle use, rales, rhonchi, wheezes - Cardiovascular Cardiovascular exam: Present: irregular rhythm, RRR, +S1, +S2. Absent: diastolic murmur, gallop, rubs, systolic murmur Additional comments: HR remains <100 with ventricular rate. - GI/Abdominal GI/Abdominal exam: Present: normal bowel sounds, soft, no peritoneal signs. Absent: distended, tenderness - Extremities Exam Extremities exam: Present: warm, radial pulses palpable and symmetrical. Absent : calf tenderness, cyanotic, pedal edema Additional comments: Left foot continues to have Curlex dressing in place. Left second toe with partial agitation with wound bed appearing dry and no drainage received. Left great toe with a debrided areas to the lateral tip - Neurological Exam Neurological exam: Present: CN II-XII intact, oriented X3, no focal deficits. Absent: pronater drift, facial droop, speech deficit - Skin Skin exam: Present: dry, intact Internal Medicine: Result - Labs CBC & Chem 7: 05/03/18 04:22 05/03/18 04:22 Labs: Short CBC 05/03/18 Range/Units 04:22 WBC 8.8 (4.3-11.1) K/mcL Hgb 8.4 L (12.9-16.9) g/dL Hct 27.3 L (37.5-50.1) % Plt Count 261 (140-400) K/mcL BMP 05/03/18 04:22 Sodium 138 Potassium 3.7 Chloride 111 H Carbon Dioxide 22 L BUN 12 Creatinine 0.92 Glucose 162 H Calcium 8.3 L Consult Discharge Plan - Plan Instructions: Upper Gastrointestinal Endoscopy (DC), Moderate Sedation (DC), Fall Prevention (DC) Referrals: Kenny Mendoza DO [Primary Care Provider] -
[2018-05-04 04:52] LABS: Hematocrit 27.4 % (37.5-50.1); Hemoglobin 8.3 g/dL (12.9-16.9); Mean Corpuscular HGB Conc 30.3 g/dL (31.6-35.5); Mean Corpuscular Hemoglobin 24.1 pg (28.0-33.3); Mean Corpuscular Volume 79.7 fL (83.0-100.0); Mean Platelet Volume 8.7 fL (9.4-12.4); Platelet Count 292 K/mcL (140-400); Red Blood Count 3.44 M/mcL (4.19-5.50); Red Cell Distribution Width 21.6 % (11.5-14.5)
[2018-05-04 05:09] LABS: BUN/Creatinine Ratio 14 (6-26); Blood Urea Nitrogen 11 mg/dL (8-23); Calcium 8.5 mg/dL (8.6-10.3); Carbon Dioxide 20 mEq/L (23-29); Chloride 113 mEq/L (98-107); Glucose 147 mg/dL (70-105); Osmolality,Calculated 292 (280-300); Potassium 4.2 mEq/L (3.5-5.1); Sodium 140 mEq/L (136-145); eGFR For Non-African Americans > 60 (> 60)
[2018-05-04] MEDS: Insulin LISPRO 300 UNITS/3 ML VIAL SQ SCH ×4 (08:21→20:22)
[2018-05-04] MEDS: Apixaban 5 MG TABLET PO SCH ×2 (09:49→20:27)
[2018-05-04] MEDS: Sucralfate 1 GM TABLET PO SCH ×4 (09:49→20:28)
[2018-05-04] MEDS: Amoxicillin/Clavulanate 500 MG TABLET PO SCH ×3 (09:49→20:27)
[2018-05-04] MEDS: Sulfamethoxazole/Trimeth DS 1 EACH TABLET PO SCH ×2 (09:49→20:27)
[2018-05-04] MEDS: Aspirin Enteric Coated 81 MG Tablet PO SCH (09:49)
--- NOTE | 2018-05-04 15:45 | Internal Med Progress Note ---
Date of Encounter: 05/04/18 Time of Encounter: 15:43 - Assessment and plan (1) Cellulitis Current Visit: No Status: Acute Assessment and plan: No evidence currently. Qualifiers: Site of cellulitis: extremity Site of cellulitis of extremity: lower extremity Laterality: right Qualified Code(s): L03.115 - Cellulitis of right lower limb (2) SLY (acute kidney injury) Current Visit: Yes Status: Acute Assessment and plan: Clinically stable and will follow in a day or so with repeat lab. (3) Atrial fibrillation Current Visit: Yes Status: Chronic Assessment and plan: As per my EKG yesterday, he is in normal sinus rhythm with frequent PVCs. Qualifiers: Atrial fibrillation type: unspecified Qualified Code(s): I48.91 - Unspecified atrial fibrillation (4) Hypertension Current Visit: No Status: Chronic Assessment and plan: Clinically stable. We will continue home regimen and follow. Qualifiers: Hypertension type: essential hypertension Qualified Code(s): I10 - Essential (primary) hypertension (5) Upper GI hemorrhage Current Visit: No Status: Acute Assessment and plan: I told patient and that we would simply follow this with her complete blood count since this lesion be followed over the next several months per his primary care provider. (6) Closed fracture of left elbow Current Visit: Yes Status: Acute Assessment and plan: He continues to wear his brace as prescribed by orthopedics. Qualifiers: Encounter type: initial encounter Qualified Code(s): S42.402A - Unspecified fracture of lower end of left humerus, initial encounter for closed fracture (7) Diabetes mellitus type 2 in nonobese Current Visit: Yes Status: Chronic Assessment and plan: This is currently stable and we will continue to follow with sliding scale insulin, etc. - Subjective Interval history: Patient is feeling well. He states that they have or him out with physical therapy. However, he has no other issues. He and his again asked about follow-up of his blood count. I told him that since he is known to have a normal endoscopy, he simply needs follow this chronically. Patient has no complaint of chest discomfort, dyspnea, orthopnea, palpitations, nausea or vomiting, constipation or diarrhea, other changes in bowel habits, difficulty with urination, rash or itching, or other new complaints, except as mentioned above. Review of systems is otherwise negative. I discussed management of her care with nursing staff. - Constitutional Vitals: Temp Pulse Resp BP Pulse Ox 98 F 75 16 119/69 98 05/04/18 07:36 05/04/18 07:36 05/04/18 07:36 05/04/18 07:36 05/04/18 07:36 General appearance: Present: pleasant, answers questions appropriately Exam: Examination: (Except as mentioned above): General: In no apparent distress. Alert and oriented 3. Nondiaphoretic. Head: Atraumatic and normocephalic. Respiratory: No use of accessory muscles. Lungs are clear throughout. Normal airflow. Cardiovascular: Regular rate and rhythm without murmur appreciated. Abdomen: Bowel sounds are normal. No hepatosplenomegaly mass or tenderness appreciated. Patient is examined upright in chair and this also limits exam.Obese and therefore difficult to palpate deeply. Extremities: No cyanosis clubbing or edema. Skin: Warm and non-diaphoretic with no new lesions noted. (The patient remains in dressings on his feet and these are not removed.) Internal Medicine: Result - Labs CBC & Chem 7: 05/04/18 04:45 05/04/18 04:45 Labs: Short CBC 05/04/18 Range/Units 04:45 WBC 11.4 H (4.3-11.1) K/mcL Hgb 8.3 L (12.9-16.9) g/dL Hct 27.4 L (37.5-50.1) % Plt Count 292 (140-400) K/mcL BMP 05/04/18 04:45 Sodium 140 Potassium 4.2 Chloride 113 H Carbon Dioxide 20 L BUN 11 Creatinine 0.80 Glucose 147 H Calcium 8.5 L Consult Discharge Plan - Plan Instructions: Upper Gastrointestinal Endoscopy (DC), Moderate Sedation (DC), Fall Prevention (DC) Referrals: Kenny Mendoza DO [Primary Care Provider] -
[2018-05-05 05:52] LABS: Hematocrit 27.3 % (37.5-50.1); Hemoglobin 8.3 g/dL (12.9-16.9); Mean Corpuscular HGB Conc 30.4 g/dL (31.6-35.5); Mean Corpuscular Hemoglobin 24.3 pg (28.0-33.3); Mean Corpuscular Volume 79.8 fL (83.0-100.0); Mean Platelet Volume 8.8 fL (9.4-12.4); Platelet Count 343 K/mcL (140-400); Red Blood Count 3.42 M/mcL (4.19-5.50); Red Cell Distribution Width 21.6 % (11.5-14.5)
[2018-05-05 06:10] LABS: BUN/Creatinine Ratio 12 (6-26); Blood Urea Nitrogen 9 mg/dL (8-23); Calcium 8.7 mg/dL (8.6-10.3); Carbon Dioxide 19 mEq/L (23-29); Chloride 112 mEq/L (98-107); Glucose 137 mg/dL (70-105); Osmolality,Calculated 287 (280-300); Sodium 138 mEq/L (136-145); eGFR For Non-African Americans > 60 (> 60)
[2018-05-05] MEDS: Amoxicillin/Clavulanate 500 MG TABLET PO SCH ×3 (09:01→20:52)
[2018-05-05] MEDS: Sucralfate 1 GM TABLET PO SCH ×4 (09:01→20:52)
[2018-05-05] MEDS: Apixaban 5 MG TABLET PO SCH ×2 (09:02→20:52)
[2018-05-05] MEDS: Aspirin Enteric Coated 81 MG Tablet PO SCH (09:02)
[2018-05-05] MEDS: Insulin LISPRO 300 UNITS/3 ML VIAL SQ SCH ×4 (09:02→20:53)
[2018-05-05] MEDS: Sulfamethoxazole/Trimeth DS 1 EACH TABLET PO SCH ×2 (09:02→20:52)
--- NOTE | 2018-05-05 10:25 | Internal Med Progress Note ---
Date of Encounter: 05/05/18 Time of Encounter: 10:22 - Assessment and plan (1) Closed fracture of left elbow Current Visit: Yes Status: Acute Assessment and plan: Continue brace. Follow up with ortho as scheduled. Qualifiers: Encounter type: initial encounter Qualified Code(s): S42.402A - Unspecified fracture of lower end of left humerus, initial encounter for closed fracture (2) Atrial fibrillation Current Visit: Yes Status: Chronic Assessment and plan: Rate and rhythm controlled. Continue eliquis. Qualifiers: Atrial fibrillation type: unspecified Qualified Code(s): I48.91 - Unspecified atrial fibrillation (3) Diabetes mellitus type 2 in nonobese Current Visit: Yes Status: Chronic Assessment and plan: Controlled with current medication. Monitor fingerstick blood sugar. Will adjust medicines as necessary. (4) UGI bleed Current Visit: Yes Status: Acute Assessment and plan: Hemoglobin 8.3. Stable. No active sign of bleeding. Asymptomatic. Will trend labs and follow up with PCP. 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 (6) Cellulitis Current Visit: Yes Status: Acute Assessment and plan: Continue antibiotics. Will monitor. Qualifiers: Site of cellulitis: extremity Site of cellulitis of extremity: lower extremity Laterality: right Qualified Code(s): L03.115 - Cellulitis of right lower limb - Time Spent With Patient less than 15 minutes - Subjective Interval history: Participating well with therapy. Denies pain. Left arm remains in brace. Hemoglobin 8.3,stable no active sign of bleeding and patient asymptomatic. On antibiotics for cellulitis to left lower extremity. Maintaining appetite and hydration. States bowels and bladder are moving as normal. Denies fever, chills, nausea, vomiting or diarrhea. Denies chest pain or shortness of breath. - Constitutional Vitals: Temp Pulse Resp BP Pulse Ox 97.7 F 79 16 142/100 98 05/05/18 07:47 05/05/18 07:47 05/05/18 07:47 05/05/18 07:47 05/05/18 07:47 General appearance: Present: pleasant, answers questions appropriately - Head Head exam: Present: atraumatic, normocephalic - Eye Eye exam: Present: PERRL, conjuntiva pink, sclera anicteric Pupils: Present: PERRL - Neck Neck exam general surgery: Present: supple, trachea midline. Absent: lymphadenopathy - Respiratory Respiratory exam: Present: CTAB. Absent: accessory muscle use, rales, rhonchi, wheezes - Cardiovascular Cardiovascular exam: Present: irregular rhythm, +S1, +S2. Absent: diastolic murmur, gallop, rubs, systolic murmur - GI/Abdominal GI/Abdominal exam: Present: normal bowel sounds, soft, no peritoneal signs. Absent: distended, tenderness - Extremities Exam Extremities exam: Present: warm, radial pulses palpable and symmetrical. Absent : calf tenderness, cyanotic, pedal edema Additional comments: Brace to left arm. - Neurological Exam Neurological exam: Present: CN II-XII intact, oriented X3, no focal deficits. Absent: pronater drift, facial droop, speech deficit - Skin Skin exam: Present: dry, intact Additional comments: Left foot dressing dry and intact. Internal Medicine: Result - Labs CBC & Chem 7: 05/05/18 05:25 05/05/18 05:25 Labs: Short CBC 05/05/18 Range/Units 05:25 WBC 12.8 H (4.3-11.1) K/mcL Hgb 8.3 L (12.9-16.9) g/dL Hct 27.3 L (37.5-50.1) % Plt Count 343 (140-400) K/mcL BMP 05/05/18 05:25 Sodium 138 Potassium 4.0 Chloride 112 H Carbon Dioxide 19 L BUN 9 Creatinine 0.75 Glucose 137 H Calcium 8.7 Consult Discharge Plan - Plan Instructions: Upper Gastrointestinal Endoscopy (DC), Moderate Sedation (DC), Fall Prevention (DC) Referrals: Kenny Mendoza DO [Primary Care Provider] -
[2018-05-05] MEDS: 0.9 % Sodium Chloride 1,000 ML IVC SCH (12:23)
[2018-05-06 06:24] LABS: Basophils # 0.1 K/mcL (0.0-0.2); Basophils % 0.7 %; Eosinophils % 9.4 %; Hematocrit 27.6 % (37.5-50.1); Hemoglobin 8.1 g/dL (12.9-16.9); Immature Granulocytes % 0.8 % (0-4); Lymphocytes # 0.8 K/mcL (0.6-4.6); Lymphocytes % 7.4 %; Mean Corpuscular HGB Conc 29.3 g/dL (31.6-35.5); Mean Corpuscular Volume 81.7 fL (83.0-100.0); Monocytes # 0.7 K/mcL (0.0-1.3); Monocytes % 6.5 %; Neutrophils # 8.1 K/mcL (1.6-8.9); Platelet Count 332 K/mcL (140-400); Red Blood Count 3.38 M/mcL (4.19-5.50); Red Cell Distribution Width 22.2 % (11.5-14.5); Segmented Neutrophils % 75.2 %
[2018-05-06 06:36] LABS: BUN/Creatinine Ratio 13 (6-26); Blood Urea Nitrogen 9 mg/dL (8-23); Calcium 8.5 mg/dL (8.6-10.3); Carbon Dioxide 18 mEq/L (23-29); Chloride 112 mEq/L (98-107); Glucose 121 mg/dL (70-105); Osmolality,Calculated 286 (280-300); Potassium 4.1 mEq/L (3.5-5.1); Sodium 138 mEq/L (136-145); eGFR For Non-African Americans > 60 (> 60)
[2018-05-06] MEDS: Insulin LISPRO 300 UNITS/3 ML VIAL SQ SCH ×4 (08:49→20:19)
[2018-05-06] MEDS: Sulfamethoxazole/Trimeth DS 1 EACH TABLET PO SCH ×2 (09:03→20:20)
[2018-05-06] MEDS: Aspirin Enteric Coated 81 MG Tablet PO SCH (09:03)
[2018-05-06] MEDS: Apixaban 5 MG TABLET PO SCH ×2 (09:03→20:21)
[2018-05-06] MEDS: Sucralfate 1 GM TABLET PO SCH ×4 (09:04→20:20)
[2018-05-06] MEDS: Amoxicillin/Clavulanate 500 MG TABLET PO SCH ×3 (09:04→20:21)
--- NOTE | 2018-05-06 09:57 | Internal Med Progress Note ---
Date of Encounter: 05/06/18 Time of Encounter: 09:55 - Assessment and plan (1) Closed fracture of left elbow Current Visit: Yes Status: Acute Assessment and plan: Continue brace. Follow up with ortho as scheduled. Qualifiers: Encounter type: initial encounter Qualified Code(s): S42.402A - Unspecified fracture of lower end of left humerus, initial encounter for closed fracture (2) Atrial fibrillation Current Visit: Yes Status: Chronic Assessment and plan: Rate and rhythm controlled. Continue eliquis. Qualifiers: Atrial fibrillation type: unspecified Qualified Code(s): I48.91 - Unspecified atrial fibrillation (3) Diabetes mellitus type 2 in nonobese Current Visit: Yes Status: Chronic Assessment and plan: Controlled with current medication. Monitor fingerstick blood sugar. Will adjust medicines as necessary. (4) UGI bleed Current Visit: Yes Status: Acute Assessment and plan: Hemoglobin 8.1. Stable. No active sign of bleeding. Asymptomatic. Will trend labs and follow up with PCP. 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 (6) Cellulitis Current Visit: Yes Status: Acute Assessment and plan: Continue antibiotics. Will monitor. wound following. Qualifiers: Site of cellulitis: extremity Site of cellulitis of extremity: lower extremity Laterality: left Qualified Code(s): L03.116 - Cellulitis of left lower limb - Time Spent With Patient less than 15 minutes - Subjective Interval history: Participating well with therapy. Denies pain. Left arm remains in brace. Hemoglobin 8.1,stable no active sign of bleeding and patient asymptomatic. On antibiotics for cellulitis to left lower extremity. states he slept well last night. Maintaining appetite and hydration. States bowels and bladder are moving as normal. Denies fever, chills, nausea, vomiting or diarrhea. Denies chest pain or shortness of breath. - Constitutional Vitals: Temp Pulse Resp BP Pulse Ox 98.6 F 76 17 117/70 96 05/06/18 07:47 05/06/18 07:47 05/06/18 07:47 05/06/18 07:47 05/06/18 07:47 General appearance: Present: cooperative, A&O X 3, pleasant, no acute distress, answers questions appropriately - Head Head exam: Present: atraumatic, normocephalic - Eye Eye exam: Present: PERRL, conjuntiva pink, sclera anicteric Pupils: Present: PERRL - Neck Neck exam general surgery: Present: supple, trachea midline. Absent: lymphadenopathy - Respiratory Respiratory exam: Present: CTAB. Absent: accessory muscle use, rales, rhonchi, wheezes - Cardiovascular Cardiovascular exam: Present: irregular rhythm, +S1, +S2. Absent: diastolic murmur, gallop, rubs, systolic murmur - GI/Abdominal GI/Abdominal exam: Present: normal bowel sounds, soft, no peritoneal signs. Absent: distended, tenderness - Extremities Exam Extremities exam: Present: warm, radial pulses palpable and symmetrical. Absent : calf tenderness, cyanotic, pedal edema Additional comments: brace to Left arm - Neurological Exam Neurological exam: Present: CN II-XII intact, oriented X3, no focal deficits. Absent: pronater drift, facial droop, speech deficit - Skin Skin exam: Present: dry, intact Additional comments: wound to left foot, dressing dry and intact. Internal Medicine: Result - Labs CBC & Chem 7: 05/06/18 05:20 05/06/18 05:20 Labs: Short CBC 05/06/18 Range/Units 05:20 WBC 10.8 (4.3-11.1) K/mcL Hgb 8.1 L (12.9-16.9) g/dL Hct 27.6 L (37.5-50.1) % Plt Count 332 (140-400) K/mcL Neutrophils # 8.1 (1.6-8.9) K/mcL BMP 05/06/18 05:20 Sodium 138 Potassium 4.1 Chloride 112 H Carbon Dioxide 18 L BUN 9 Creatinine 0.71 Glucose 121 H Calcium 8.5 L Consult Discharge Plan - Plan Instructions: Upper Gastrointestinal Endoscopy (DC), Moderate Sedation (DC), Fall Prevention (DC) Referrals: Kenny Mendoza DO [Primary Care Provider] -
[2018-05-07 05:45] LABS: Hematocrit 26.6 % (37.5-50.1); Hemoglobin 8.1 g/dL (12.9-16.9); Mean Corpuscular HGB Conc 30.5 g/dL (31.6-35.5); Mean Corpuscular Hemoglobin 24.3 pg (28.0-33.3); Mean Corpuscular Volume 79.9 fL (83.0-100.0); Mean Platelet Volume 8.6 fL (9.4-12.4); Platelet Count 397 K/mcL (140-400); Red Blood Count 3.33 M/mcL (4.19-5.50); Red Cell Distribution Width 22.2 % (11.5-14.5)
[2018-05-07 06:00] LABS: BUN/Creatinine Ratio 13 (6-26); Blood Urea Nitrogen 11 mg/dL (8-23); Calcium 8.9 mg/dL (8.6-10.3); Carbon Dioxide 22 mEq/L (23-29); Chloride 112 mEq/L (98-107); Glucose 143 mg/dL (70-105); Osmolality,Calculated 290 (280-300); Potassium 4.3 mEq/L (3.5-5.1); Sodium 139 mEq/L (136-145); eGFR For Non-African Americans > 60 (> 60)
[2018-05-07] MEDS: Insulin LISPRO 300 UNITS/3 ML VIAL SQ SCH ×4 (07:49→20:38)
[2018-05-07] MEDS: Aspirin Enteric Coated 81 MG Tablet PO SCH (08:23)
[2018-05-07] MEDS: Sucralfate 1 GM TABLET PO SCH ×4 (08:23→20:40)
[2018-05-07] MEDS: Sulfamethoxazole/Trimeth DS 1 EACH TABLET PO SCH ×2 (08:24→20:40)
[2018-05-07] MEDS: Apixaban 5 MG TABLET PO SCH ×2 (08:24→20:40)
[2018-05-07] MEDS: Amoxicillin/Clavulanate 500 MG TABLET PO SCH ×3 (08:51→20:40)
--- NOTE | 2018-05-07 10:26 | Internal Med Progress Note ---
Date of Encounter: 05/07/18 Time of Encounter: 10:24 - Assessment and plan (1) Closed fracture of left elbow Current Visit: Yes Status: Acute Assessment and plan: Continue brace. Follow up with ortho as scheduled. Qualifiers: Encounter type: initial encounter Qualified Code(s): S42.402A - Unspecified fracture of lower end of left humerus, initial encounter for closed fracture (2) Atrial fibrillation Current Visit: Yes Status: Chronic Assessment and plan: Rate and rhythm controlled. Continue eliquis. Qualifiers: Atrial fibrillation type: unspecified Qualified Code(s): I48.91 - Unspecified atrial fibrillation (3) Diabetes mellitus type 2 in nonobese Current Visit: Yes Status: Chronic Assessment and plan: Controlled with current medication. Monitor fingerstick blood sugar. Will adjust medicines as necessary. (4) UGI bleed Current Visit: Yes Status: Acute Assessment and plan: Hemoglobin 8.1. Stable. No active sign of bleeding. Asymptomatic. Will trend labs and follow up with PCP. (5) PVD (peripheral vascular disease) Current Visit: Yes Status: Chronic (6) Cellulitis Current Visit: Yes Status: Acute Assessment and plan: Continue antibiotics. Will monitor. wound following. Qualifiers: Site of cellulitis: extremity Site of cellulitis of extremity: lower extremity Laterality: left Qualified Code(s): L03.116 - Cellulitis of left lower limb - Time Spent With Patient less than 15 minutes - Subjective Interval history: Participating well with therapy. Denies pain. Left arm remains in brace. On antibiotics for cellulitis to left lower extremity. states he slept well last night. Maintaining appetite and hydration. States bowels and bladder are moving as normal. Denies fever, chills, nausea, vomiting or diarrhea. Denies chest pain or shortness of breath. - Constitutional Vitals: Temp Pulse Resp BP Pulse Ox 97.8 F 68 18 115/64 98 05/07/18 06:47 05/07/18 06:47 05/07/18 06:47 05/07/18 06:47 05/07/18 06:47 General appearance: Present: cooperative, A&O X 3, pleasant, no acute distress, answers questions appropriately - Head Head exam: Present: atraumatic, normocephalic - Eye Eye exam: Present: PERRL, conjuntiva pink, sclera anicteric Pupils: Present: PERRL - Neck Neck exam general surgery: Present: supple, trachea midline. Absent: lymphadenopathy - Respiratory Respiratory exam: Present: CTAB. Absent: accessory muscle use, rales, rhonchi, wheezes - Cardiovascular Cardiovascular exam: Present: irregular rhythm, +S1, +S2. Absent: diastolic murmur, gallop, rubs, systolic murmur - GI/Abdominal GI/Abdominal exam: Present: normal bowel sounds, soft, no peritoneal signs. Absent: distended, tenderness - Extremities Exam Extremities exam: Present: warm, radial pulses palpable and symmetrical. Absent : calf tenderness, cyanotic, pedal edema Additional comments: Left arm in brace - Neurological Exam Neurological exam: Present: CN II-XII intact, oriented X3, no focal deficits. Absent: pronater drift, facial droop, speech deficit - Skin Skin exam: Present: dry, intact Additional comments: Wound to left foot dressing dry and intact. Slight redness to bilateral lower extremities. Internal Medicine: Result - Labs CBC & Chem 7: 05/07/18 05:30 05/07/18 05:30 Labs: Short CBC 05/07/18 Range/Units 05:30 WBC 11.2 H (4.3-11.1) K/mcL Hgb 8.1 L (12.9-16.9) g/dL Hct 26.6 L (37.5-50.1) % Plt Count 397 (140-400) K/mcL BMP 05/07/18 05:30 Sodium 139 Potassium 4.3 Chloride 112 H Carbon Dioxide 22 L BUN 11 Creatinine 0.85 Glucose 143 H Calcium 8.9 Consult Discharge Plan - Plan Instructions: Upper Gastrointestinal Endoscopy (DC), Moderate Sedation (DC), Fall Prevention (DC) Referrals: Kenny Mendoza DO [Primary Care Provider] -
--- NOTE | 2018-05-07 11:18 | Electrocardiograph Report ---
[place] [id number] Test Date: 2018-05-03 Pat Name: Miguel Boswell Department: 2001 Room: 114 Gender: M Roving Technician: : 1940 Requested By: Lior Rodgers Order Number: [id number] Reading MD: Francis Orr Measurements Intervals [place] Rate: 76 P: VT: 0 QRS: 35 QRSD: 93 T: 30 QT: 371 QTc: 401 Interpretive Statements Atrial fibrillation with controlled ventricular response LOW QRS VOLTAGE IN EXTREMITY LEADS POSSIBLE ANTERIOR MYOCARDIAL INFARCTION, PROBABLY OLD Multiple ventricular premature complexes Electronically Signed On 05-07-2018 11:16:42 EDT by Francis Orr
--- NOTE | 2018-05-08 07:28 | Internal Med Progress Note ---
Date of Encounter: 05/08/18 Time of Encounter: 07:26 - Assessment and plan (1) Closed fracture of left elbow Current Visit: Yes Status: Acute Assessment and plan: Left arm remains in a full-length brace with distal CV checks within normal limits. Patient denies any discomforts to arm. We will continue with current physical therapy. Qualifiers: Encounter type: initial encounter Qualified Code(s): S42.402A - Unspecified fracture of lower end of left humerus, initial encounter for closed fracture (2) UGI bleed Current Visit: Yes Status: Acute Assessment and plan: Patient shows no acute signs of active bleeding. Patient has had a slight drop in his hemoglobin down to 8.1. Patient had a EGD last week that showed no acute issues. No further orders were received from GI. Patient will continue to follow with GI. (3) PVD (peripheral vascular disease) Current Visit: Yes Status: Chronic Assessment and plan: Patient's wounds to his left great toe and second left toe appeared to be healing well with no signs of infection. We will continue with current daily wound care per surgeon orders. Patient denies any pain to wounds. (4) Atrial fibrillation Current Visit: Yes Status: Chronic Assessment and plan: Heart rate remains irregular with ventricular rate less than 100. We will continue on current home medications. Qualifiers: Atrial fibrillation type: unspecified Qualified Code(s): I48.91 - Unspecified atrial fibrillation (5) Diabetes mellitus type 2 in nonobese Current Visit: Yes Status: Chronic Assessment and plan: Glucose has been well controlled less than 150. We will continue with fingersticks and current coverage. - Time Spent With Patient less than 15 minutes - Subjective Interval history: Patient appears relaxed and currently denies any discomforts or shortness of breath. Patient states that he has no pain to his left arm fracture site. Left arm remains in brace. Patient currently is appropriate with conversation. Left second toe amputation wound and left great toe wound continues to be monitored and managed by wound care. - Constitutional Vitals: Temp Pulse Resp BP Pulse Ox 97.6 F 72 16 126/71 98 05/08/18 06:44 05/08/18 06:44 05/08/18 06:44 05/08/18 06:44 05/08/18 06:44 General appearance: Present: cooperative, A&O X 3, pleasant, no acute distress, answers questions appropriately - Head Head exam: Present: atraumatic, normocephalic - Eye Eye exam: Present: PERRL, conjuntiva pink, sclera anicteric Pupils: Present: PERRL - Neck Neck exam general surgery: Present: supple, trachea midline. Absent: lymphadenopathy - Respiratory Respiratory exam: Present: CTAB. Absent: accessory muscle use, rales, rhonchi, wheezes - Cardiovascular Cardiovascular exam: Present: RRR, +S1, +S2. Absent: diastolic murmur, gallop, rubs, systolic murmur - GI/Abdominal GI/Abdominal exam: Present: normal bowel sounds, soft, no peritoneal signs. Absent: distended, tenderness - Extremities Exam Extremities exam: Present: warm, radial pulses palpable and symmetrical. Absent : calf tenderness, cyanotic, pedal edema Additional comments: Left arm remains in brace. No signs of deformity or injury. Left foot with Kerlix dressing to a partial affectation of the second left toe and debridement to the tip of the left great toe - Neurological Exam Neurological exam: Present: CN II-XII intact, oriented X3, no focal deficits. Absent: pronater drift, facial droop, speech deficit - Skin Skin exam: Present: dry, intact Internal Medicine: Result - Labs CBC & Chem 7: 05/07/18 05:30 05/07/18 05:30 Consult Discharge Plan - Plan Instructions: Upper Gastrointestinal Endoscopy (DC), Moderate Sedation (DC), Fall Prevention (DC) Referrals: Kenny Mendoza DO [Primary Care Provider] -
[2018-05-08] MEDS: Insulin LISPRO 300 UNITS/3 ML VIAL SQ SCH ×4 (07:31→20:44)
[2018-05-08] MEDS: Sucralfate 1 GM TABLET PO SCH ×4 (08:33→20:36)
[2018-05-08] MEDS: Amoxicillin/Clavulanate 500 MG TABLET PO SCH ×3 (08:33→20:36)
[2018-05-08] MEDS: Aspirin Enteric Coated 81 MG Tablet PO SCH (08:34)
[2018-05-08] MEDS: Apixaban 5 MG TABLET PO SCH ×2 (08:34→20:36)
[2018-05-08] MEDS: Sulfamethoxazole/Trimeth DS 1 EACH TABLET PO SCH ×2 (08:34→20:36)
[2018-05-09] MEDS: Aspirin Enteric Coated 81 MG Tablet PO SCH (08:55)
[2018-05-09] MEDS: Insulin LISPRO 300 UNITS/3 ML VIAL SQ SCH ×4 (08:55→20:30)
[2018-05-09] MEDS: Apixaban 5 MG TABLET PO SCH ×2 (08:55→20:30)
[2018-05-09] MEDS: Amoxicillin/Clavulanate 500 MG TABLET PO SCH ×3 (08:55→20:30)
[2018-05-09] MEDS: Sulfamethoxazole/Trimeth DS 1 EACH TABLET PO SCH ×2 (08:55→20:30)
[2018-05-09] MEDS: Sucralfate 1 GM TABLET PO SCH ×4 (08:56→20:29)
--- NOTE | 2018-05-09 11:46 | Internal Med Progress Note ---
Date of Encounter: 05/09/18 Time of Encounter: 11:43 - Assessment and plan (1) Closed fracture of left elbow Current Visit: Yes Status: Acute Assessment and plan: Left arm remains in a full-length brace with distal CV checks within normal limits. Patient denies any discomforts to arm. Patient had a MRI of the left arm today per orthopedics. Results pending. We will continue with current physical therapy. Qualifiers: Encounter type: initial encounter Qualified Code(s): S42.402A - Unspecified fracture of lower end of left humerus, initial encounter for closed fracture (2) UGI bleed Current Visit: Yes Status: Acute Assessment and plan: Patient shows no acute signs of active bleeding. Patient has had a slight drop in his hemoglobin down to 8.1. Patient had a EGD last week that showed no acute issues. No further orders were received from GI. Patient will continue to follow with GI. (3) PVD (peripheral vascular disease) Current Visit: Yes Status: Chronic Assessment and plan: Patient's wounds to his left great toe and second left toe appeared to be healing well with no signs of infection. We will continue with current daily wound care per surgeon orders. Patient denies any pain to wounds. (4) Atrial fibrillation Current Visit: Yes Status: Chronic Assessment and plan: Heart rate remains irregular with ventricular rate less than 100. We will continue on current home medications. Qualifiers: Atrial fibrillation type: unspecified Qualified Code(s): I48.91 - Unspecified atrial fibrillation (5) Diabetes mellitus type 2 in nonobese Current Visit: Yes Status: Chronic Assessment and plan: Glucose has been well controlled less than 150. We will continue with fingersticks and current coverage. - Time Spent With Patient less than 15 minutes - Subjective Interval history: Patient appears relaxed and currently denies any discomforts or shortness of breath. Patient states that he has no pain to his left arm fracture site. Left arm remains in brace. Patient currently is appropriate with conversation. Left second toe amputation wound and left great toe wound continues to be monitored and managed by wound care. Per nursing patient has not been very compliant with weightbearing status and continues to ambulate on his left foot, where he is only supposed to bear weight on his heel. Patient also continues to use his left arm for picking up objects. Repeated patient education has been given with minimal result. - Constitutional Vitals: Temp Pulse Resp BP Pulse Ox 97.9 F 78 14 117/66 98 05/09/18 07:42 05/09/18 07:42 05/09/18 07:42 05/09/18 07:42 05/08/18 20:00 General appearance: Present: cooperative, A&O X 3, pleasant, no acute distress, answers questions appropriately Exam: Vision does well with simple questions but noted become somewhat confused or has not when asked complex questions. Patient also noted to have poor memory as he continues to be noncompliant with weightbearing. - Head Head exam: Present: atraumatic, normocephalic - Eye Eye exam: Present: PERRL, conjuntiva pink, sclera anicteric Pupils: Present: PERRL - Neck Neck exam general surgery: Present: supple, trachea midline. Absent: lymphadenopathy - Respiratory Respiratory exam: Present: CTAB. Absent: accessory muscle use, rales, rhonchi, wheezes - Cardiovascular Cardiovascular exam: Present: RRR, +S1, +S2. Absent: diastolic murmur, gallop, rubs, systolic murmur - GI/Abdominal GI/Abdominal exam: Present: normal bowel sounds, soft, no peritoneal signs. Absent: distended, tenderness - Extremities Exam Extremities exam: Present: warm, radial pulses palpable and symmetrical. Absent : calf tenderness, cyanotic, pedal edema Additional comments: Left arm remains in brace. No edema noted distal CV checks were normal. Left foot with dressing dry and intact to his left second toe partial amputation and the debridement site to the tip of his left great toe. Wound care performs dressing changes on Sunday and Fridays. - Neurological Exam Neurological exam: Present: CN II-XII intact, oriented X3, no focal deficits. Absent: pronater drift, facial droop, speech deficit - Skin Skin exam: Present: dry, intact Internal Medicine: Result - Labs CBC & Chem 7: 05/07/18 05:30 05/07/18 05:30 - Impressions Impressions Elbow MRI 05/09/18 10:45 IMPRESSION: Severe tendinosis origin of the common extensor tendon with high-grade partial-thickness tearing and what appears to be subacute avulsion fracture without significant displacement at the lateral humeral condyle. Low-grade strain of the visualized proximal flexor and extensor musculature. Severe tendinosis involving 2 cm segment of distal biceps tendon which is prominently thickened and edematous with high-grade partial-thickness tear involving greater than 50% fiber thickness. Diffuse soft tissue edema. Posterior bursitis. Low-grade tendinosis origin of the common flexor tendon. Small joint effusion. D/ / Maxine Karimi MD / Maxine Karimi MD Interpreting Provider: Maxine Karimi MD Consult Discharge Plan - Plan Instructions: Upper Gastrointestinal Endoscopy (DC), Moderate Sedation (DC), Fall Prevention (DC) Referrals: Colopy,Kenny Santos DO [Primary Care Provider] - (physician wants patient to call when he gets home to make a follow up appointment.)
[2018-05-10 07:34] VITALS: BP 111/77
[2018-05-10] MEDS: Sucralfate 1 GM TABLET PO SCH ×2 (08:26→12:52)
[2018-05-10] MEDS: Sulfamethoxazole/Trimeth DS 1 EACH TABLET PO SCH (08:26)
[2018-05-10] MEDS: Amoxicillin/Clavulanate 500 MG TABLET PO SCH (08:26)
[2018-05-10] MEDS: Aspirin Enteric Coated 81 MG Tablet PO SCH (08:26)
[2018-05-10] MEDS: Apixaban 5 MG TABLET PO SCH (08:26)
[2018-05-10] MEDS: Insulin LISPRO 300 UNITS/3 ML VIAL SQ SCH (08:27)
--- NOTE | 2018-05-10 09:54 | Discharge Summary ---
Orders not resulted at time of discharge: Pending orders 04/29/18 13:55 Creatinine,Urine [UCHEM] Routine Urea Nitrogen,Urine [UCHEM] Routine Date of Encounter: 05/10/18 Time of Encounter: 09:54 - Discharge Diagnosis (1) Closed fracture of left elbow Priority: Primary Status: Acute Comments: Patient was admitted to the rehab due to deconditioning. Patient had experienced a fall with a left elbow fracture. Patient currently has a forearm brace in place. States that he has no pain to the left arm, even during range of motion. She has had poor compliance with nonweightbearing to left arm. Patient had a MRI of the left elbow per orthopedics, which showed both the fracture and tendon tears with moderate tendinitis. With the office was notified of MRI results and stated they would notify patient of any needed changes in recommendations. Patient is to continue follow-up with PCP and orthopedic surgeon. Patient is to continue with his nonweightbearing tablets until followed up with orthopedics. Patient also is continue use of the left arm brace. Qualifiers: Encounter type: initial encounter Qualified Code(s): S42.402A - Unspecified fracture of lower end of left humerus, initial encounter for closed fracture (2) UGI bleed Priority: Secondary Status: Acute Comments: Patient had had a upper GI bleed during his previous admission, but has been stable since his admission to this facility. Patient had follow-up with gastroenterology with a EGD being performed, but no acute process was shown and no further recommendations received. Patient's hemoglobin has remained stable with his latest hemoglobin at 8.1. Patient shows no further signs of active bleeding. Vital signs stable. Patient is to continue follow-up with PCP and gastroenterology (3) PVD (peripheral vascular disease) Priority: Secondary Status: Chronic Comments: No acute issues during his stay at this facility. Patient had a partial amputation of the second left toe and debridement of the right great toe tip during his previous hospitalization and [facility]. Patient continues with treatment per wound care clinic here. His dressings have remained dry and intact and the wounds appear to be healing well. Patient is to continue with wound care after discharge per home health. Patient is to follow-up with PCP. (4) Atrial fibrillation Priority: Secondary Status: Chronic Comments: No acute issues during his stay at this facility. Patient's heart rate has remained well-controlled at less than 100 and vital signs are stable. Patient has denied any palpitations or chest discomforts. We will continue with current medications. Follow-up with PCP. Qualifiers: Atrial fibrillation type: unspecified Qualified Code(s): I48.91 - Unspecified atrial fibrillation (5) Diabetes mellitus type 2 in nonobese Priority: Secondary Status: Chronic Comments: No acute issues during his stay at this facility. Patient's glucose has been very well-controlled with most of his readings less than 150. Patient's metformin was held during his previous hospitalization and will remain discontinued at time of discharge. Is recommended to follow-up with PCP. Hospital course: Mr. Boswell is a 77 year old male , who was admitted to the rehab due to deconditioning. Patient had experienced a fall with a left elbow fracture. Patient currently has a forearm brace in place. States that he has no pain to the left arm, even during range of motion. She has had poor compliance with nonweightbearing to left arm. Patient had a MRI of the left elbow per orthopedics, which showed both the fracture and tendon tears with moderate tendinitis. Orthopedic office was notified of results and recommendations are pending. Also stated they would notify patient of any needed changes. Patient also had a partial amputation of the left second toe and a debridement of the tip of the left great toe that was performed at his previous hospitalization. Both wounds continue to be healing and patient has continued to receive treatment from wound care services. Also during patient's last hospitalization , he experienced a GI bleed, no acute issues has occurred during his stay at this facility and patient had a follow-up EGD by gastroenterology which showed no acute process. Patient's hemoglobin has remained stable with his last hemoglobin at 8.1. Patient has dissipated and physical therapy and has progressed well. Patient's glucose has been well controlled with his current diet with most fingersticks readings less than 150. We will continue to hold his home medication of metformin which was discontinued at this hospitalization. Patient is being discharged to home with recommendations to continue with physical therapy per home health nursing and PT. Patient recommended to follow-up with orthopedics and PCP. Discharge discussed with: patient, family Time spent discussing smoking cessation with patient: 3 to 10 minutes - Time Spent with Patient Total time spent providing and/or coordinating discharge services: Less than 30 minutes - Discharge Medications Home Medications: Aspirin Enteric Coated [Aspirin EC] 81 mg PO DAILY 07/13/17 [History] Atorvastatin [Lipitor] 40 mg PO DAILY 07/13/17 [History] Furosemide [Lasix] 40 mg PO BID 07/13/17 [History] Amoxicillin/Clavulanate [Augmentin] 500 mg PO TID 04/21/18 [History] Lisinopril [Zestril] 20 mg PO DAILY 04/21/18 [History] Pantoprazole Sodium [Protonix] 40 mg PO DAILY 04/21/18 [History] Sulfamethoxazole/Trimeth DS [Bactrim Ds] 1 tab PO BID 04/21/18 [History] Cymbalta 20 mg PO DAILY 04/22/18 [History] Apixaban [Eliquis] 5 mg PO BID #60 tablet 04/24/18 [Rx] Metoprolol [Lopressor] 25 mg PO BID #60 tablet 04/24/18 [Rx] Sucralfate [Carafate] 1 gm PO QIDAC tablet 04/24/18 [Rx] Allergies/Adverse Reactions: 3 Allergy/AdvReac Type Severity Reaction Status Date / Time No Known Allergies Allergy Verified 04/22/18 08:11 Date of admission: 04/24/18 17:00 Primary care physician: Kenny Mendoza Consults: 04/24/18 17:30 Consult to Occupational Therapy [CONS] Routine Comment: eval and treat Reason for Consult: eval and treat Does patient have active BEDREST order?: No Is patient medically & hemodynamically stable?: Yes Patient assessed for mobility or mobilized this visit?: Yes Consult to Physical Therapy [CONS] Routine Comment: eval and treat Reason for Consult: eval and treat Does patient have active BEDREST order?: No Is patient medically & hemodynamically stable?: Yes Patient assessed for mobility or mobilized this visit?: Yes Consult to Recreational Therapy [CONS] Routine Comment: Consult to Chief Operator Synthesis [CONS] Routine Reason for SW Consult: for discharge planning 04/24/18 17:33 Consult to Physical Medicine/Rehab [CONS] Routine Reason for Consult: Please evaluate and manage therapies' guidelines and recommend pathway to reconditioning. Call Completed: No 04/24/18 17:34 Consult to Wound Care [CONS] Routine Reason for Consult: left foot amputated toes Time Notified: 16:00 Call Completed: Yes Discharging clinician: Bro Bolivar - Constitutional Vitals: Temp Pulse Resp BP Pulse Ox 98.1 F 73 16 111/77 96 05/10/18 07:00 05/10/18 07:00 05/10/18 07:00 05/10/18 07:00 05/10/18 07:00 General appearance: Present: cooperative, A&O X 3, pleasant, no acute distress, answers questions appropriately - Head Head exam: Present: atraumatic, normocephalic - Eye Eye exam: Present: PERRL, conjuntiva pink, sclera anicteric Pupils: Present: PERRL - Neck Neck exam general surgery: Present: supple, trachea midline. Absent: lymphadenopathy - Respiratory Respiratory exam: Present: CTAB. Absent: accessory muscle use, rales, rhonchi, wheezes - Cardiovascular Cardiovascular exam: Present: irregular rhythm, RRR, +S1, +S2. Absent: diastolic murmur, gallop, rubs, systolic murmur Additional comments: Heart rate remains irregular with controlled ventricular rate of less than 100. - GI/Abdominal GI/Abdominal exam: Present: normal bowel sounds, soft, no peritoneal signs. Absent: distended, tenderness - Extremities Exam Extremities exam: Present: warm, radial pulses palpable and symmetrical. Absent : calf tenderness, cyanotic, pedal edema Additional comments: Left arm remains in brace with no obvious signs of deformity or injury noted. No edema. Patient denies any tenderness to left arm even during range of motion. Left foot continues to have Kerlix dressing in place to his partial affectation of the second left toe and the debridement of the tip of the left great toe. - Neurological Exam Neurological exam: Present: CN II-XII intact, oriented X3, no focal deficits. Absent: pronater drift, facial droop, speech deficit - Skin Skin exam: Present: dry, intact - Patient Status Disposition: Home Health Service Condition: Good Functional capacity at discharge: uses cane/walker Overall status at discharge: patient is progressing back to baseline - Discharge Instructions Instructions: Upper Gastrointestinal Endoscopy (DC), Moderate Sedation (DC), Fall Prevention (DC) Follow Up With: Kenny Mendoza DO [Primary Care Provider] - (physician wants patient to call when he gets home to make a follow up appointment.) - Diet and Activity Activity: ambulate only with your walker, as per physical therapy, increase activity as tolerated Diet: low fat, low cholesterol, low salt diet
--- NOTE | 2018-05-10 11:21 | Physician Discharge Referral ---
Home Health/Hosp Referral Info Transfer to: Home Health Provider in Charge Post Discharge: PCP - Diagnosis (1) Closed fracture of left elbow Priority: Primary Status: Acute (2) UGI bleed Priority: Secondary Status: Acute (3) PVD (peripheral vascular disease) Priority: Secondary Status: Chronic (4) Atrial fibrillation Priority: Secondary Status: Chronic (5) Diabetes mellitus type 2 in nonobese Priority: Secondary Status: Chronic - Respiratory Orders Smoking Cessation: Smoking cessation has been advised. For more information, call the [place] Tobacco Quit Line at 0-726-ISCU-NOW. - Diet/Nutrition Diet/Nutrition Orders: No Added Salt (LYUBOV), No Concentrated Sweets - Activity Activity Orders: Ambulate, Walker Activity: List: Patient is to be nonweightbearing to the tip of the left foot and is supposed to bear weight only with the left heel. Patient is to be nonweightbearing on the left arm which has a brace in place - Services Needed Following services are medically necessary services: Nursing, Physical Therapy - Transfer Medications Home Medications: Aspirin Enteric Coated [Aspirin EC] 81 mg PO DAILY 07/13/17 [History] Atorvastatin [Lipitor] 40 mg PO DAILY 07/13/17 [History] Furosemide [Lasix] 40 mg PO BID 07/13/17 [History] Amoxicillin/Clavulanate [Augmentin] 500 mg PO TID 04/21/18 [History] Lisinopril [Zestril] 20 mg PO DAILY 04/21/18 [History] Pantoprazole Sodium [Protonix] 40 mg PO DAILY 04/21/18 [History] Sulfamethoxazole/Trimeth DS [Bactrim Ds] 1 tab PO BID 04/21/18 [History] Cymbalta 20 mg PO DAILY 04/22/18 [History] Apixaban [Eliquis] 5 mg PO BID #60 tablet 04/24/18 [Rx] Metoprolol [Lopressor] 25 mg PO BID #60 tablet 04/24/18 [Rx] Sucralfate [Carafate] 1 gm PO QIDAC tablet 04/24/18 [Rx] Allergies/Adverse Reactions: 3 Allergy/AdvReac Type Severity Reaction Status Date / Time No Known Allergies Allergy Verified 04/22/18 08:11 Certification: Further, I certify that my clinical findings support that this patient is homebound (i.e. absences from home require considerable and taxing effort and are for medical reasons or [facility] services or infrequently or short duration when for other reasons) because: Homebound Reason: Patient requires assistance of a person or device to safely leave home, Leaving home requires considerable and taxing effort due to condition Attestation: My signature below is to certify that this patient is under my care and that I, or nurse practitioner, or a physician's respiratory care assistant working with me, has a face-to -face encounter with this patient.
== END 2018-05-10 15:00 | disposition home health service (06) | DRG 945 ==
LOC: INPGRE 17:00

== ENCOUNTER 2018-06-11 08:44 | Inpatient (IN) ==
--- NOTE | 2018-06-11 09:18 | Emergency Department Note ---
Disposition Clinical Impression: Dehydration, Altered mental status, Knee pain Disposition: Admitted As Inpatient General Adult HPI - General Chief complaint: ED Weakness Stated complaint: fell sunday Time Seen by Provider: 06/11/18 09:05 Source: patient, family Mode of arrival: EMS Limitations: altered mental status Nursing Notes Reviewed: Yes Vital Signs Reviewed: Yes - History of Present Illness HPI Narrative: Patient complains of generalized weakness and pain in his left hip and knee. He was using his walker fine on Sunday and fell was down for an unknown period of time son had to pick him up. He has been unable to walk since that time. His says he has not been acting quite like himself. He denies head injury. He denies headache he denies fevers chills nausea vomiting night sweats or other complaints Onset (ago): day(s) (4) Location: pelvis, left, right, lower extremity Radiation: non-radiation Pain Severity: mild Pain Scale: 0 Quality: aching Consistency: constant Improves with: nothing Worsens with: movement Associated symptoms: Reports: weakness Treatments Prior to Arrival: none - Related Data Home Medications Medication Instructions Recorded Confirmed Aspirin Enteric Coated [Aspirin EC] 81 mg PO DAILY 07/13/17 06/11/18 Atorvastatin [Lipitor] 40 mg PO DAILY 07/13/17 06/11/18 Previous Rx's Medication Instructions Recorded Apixaban [Eliquis] 5 mg PO BID #60 tablet 05/10/18 DULoxetine [Cymbalta] 20 mg PO DAILY #30 capsule. 05/10/18 Metoprolol [Lopressor] 25 mg PO BID #60 tablet 05/10/18 Omeprazole [PriLOSEC] 40 mg PO DAILY #30 cap 05/10/18 Sucralfate [Carafate] 1 gm PO QIDAC #120 tablet 05/10/18 Allergies Allergy/AdvReac Type Severity Reaction Status Date / Time No Known Allergies Allergy Verified 06/11/18 09:05 All systems ED: reviewed and negative except as stated. Review of Systems: As Per HPI Constitutional: Denies: fever, chills, weakness, weight change Eyes: Denies: eye pain, eye discharge, vision change ENT ED: Denies: ear pain, throat pain, dental pain, hearing loss, epistaxis, congestion, dysphagia Cardiovascular: Denies: chest pain, palpitations, dyspnea on exertion, edema, syncope Respiratory: Denies: cough, dyspnea, wheezes, hemoptysis, stridor Gastrointestinal: Denies: abdominal pain, nausea, vomiting, diarrhea, constipation, hematemesis, melena, hematochezia Genitourinary: Denies: urgency, dysuria, frequency, hematuria Musculoskeletal: Reports: as per HPI Integumentary: Denies: rash, abrasion, lesions Neurological: Reports: as per HPI, weakness. Denies: headache, numbness, paresthesias, confusion, abnormal gait, vertigo Psychiatric: Denies: anxiety, depression, suicidal thoughts, homicidal thoughts , auditory hallucinations, visual hallucinations Endocrine: Denies: fatigue Hematological/Lymphatic: Denies: easy bleeding, easy bruising Allergic/Immunologic: Denies: facial swelling, urticaria Past Medical History - Past Medical History Attestation: Yes The following information was validated with the patient. Source: patient, nursing notes reviewed Medical history: Reports: DVT, diabetes, GERD, hyperlipidemia, hypertension Surgical history: Reports: no surgical history Psychiatric history: Reports: no psych history - Social History Smoking Status: Never smoker Smokeless Tobacco Status: No Alcohol use: Reports: none Drug use: Reports: none Physical Exam - General Limitations: altered mental status General appearance: alert, lethargic - Head Head exam: atraumatic, normocephalic, normal inspection - Eye Eye exam: Present: normal appearance, PERRL, EOMI - ENT ENT exam: normal exam, normal oropharynx, mucous membranes moist - Neck Neck exam: Present: normal inspection, full ROM, trachea midline - Chest Chest inspection: Present: normal inspection, symmetric chest wall rise - Respiratory Respiratory exam: Present: normal lung sounds bilaterally - Cardiovascular Cardiovascular exam: Present: regular rate, normal rhythm, normal heart sounds - Abdominal Exam Abdominal exam: Present: soft, Non-Tender - Extremities Exam Extremities exam: Present: tenderness (Tenderness to left hip and left knee. Right hip is just sore according to the patient there is no specific point tenderness in the right hip.) - Back Exam Back exam: Present: normal inspection - Neurological Exam Neurological exam: Present: alert, oriented X3 - Psychiatric Psychiatric exam: Present: normal affect, normal mood - Skin Skin exam: Present: warm, dry, intact Course Vital Signs Temperature 98.9 F 06/11/18 09:09 Pulse Rate 77 06/11/18 09:09 Respiratory Rate 20 10/16/18 09:09 Blood Pressure 145/82 06/11/18 09:09 O2 Sat by Pulse Oximetry 94 06/11/18 09:09 Temperature 98.9 F 06/11/18 09:09 Pulse Rate 77 06/11/18 10:09 Respiratory Rate 20 06/11/18 09:09 Blood Pressure 129/77 06/11/18 10:09 O2 Sat by Pulse Oximetry 94 06/11/18 09:09 Oxygen Delivery Oxygen Delivery Room Air Medical Decision Making - MDM Narrative Medical decision making narrative: I reviewed the patient's medication list - Lab Data Result diagrams: 06/11/18 09:34 06/11/18 09:34 Lab Results 06/11/18 06/11/18 06/11/18 Range/Units 09:34 09:34 11:30 WBC 15.1 H D (4.3-11.1) K/mcL RBC 3.70 L (4.19-5.50) M/mcL Hgb 10.1 L (12.9-16.9) g/dL Hct 32.5 L (37.5-50.1) % MCV 87.8 (83.0-100.0) fL MCH 27.3 L (28.0-33.3) pg MCHC 31.1 L (31.6-35.5) g/dL RDW 22.0 H (11.5-14.5) % Plt Count 245 (140-400) K/mcL MPV 8.4 L (9.4-12.4) fL Immature Gran % 0.7 (0-4) % Seg Neutrophils % 85.7 % Lymphocytes % 4.2 % Monocytes % 8.5 % Eosinophils % 0.6 % Basophils % 0.3 % Neutrophils # 12.9 H (1.6-8.9) K/mcL Lymphocytes # 0.6 (0.6-4.6) K/mcL Monocytes # 1.3 (0.0-1.3) K/mcL Eosinophils # 0.1 (0.0-0.6) K/mcL Basophils # 0.1 (0.0-0.2) K/mcL Sodium 143 (136-145) mEq/L Potassium 4.0 (3.5-5.1) mEq/L Chloride 108 H (98-107) mEq/L Carbon Dioxide 25 (23-29) mEq/L BUN 13 (8-23) mg/dL Creatinine 0.83 (0.70-1.30) mg/dL Est GFR ( Amer) > 60 (> 60) Est GFR (Non-Af Amer) > 60 (> 60) BUN/Creatinine Ratio 16 (6-26) Glucose 130 H (70-105) mg/dL Calculated Osmolality 298 (280-300) Calcium 8.9 (8.6-10.3) mg/dL Total Bilirubin 1.6 H (0.3-1.0) mg/dL AST 10 L (13-39) Units/L ALT 14 (7-52) Units/L Alkaline Phosphatase 168 H (34-104) Units/L Troponin I < 0.03 (< 0.04) ng/mL Serum Total Protein 6.7 (6.4-8.9) g/dL Albumin 3.2 L (3.5-5.7) g/dL Globulin 3.5 (2.4-3.5) g/dL Albumin/Globulin Ratio 0.9 L (1.1-2.2) Urine Color Yellow (Yellow) Urine Clarity Clear (Clear) Urine pH 5.5 (5.0-8.0) pH Units Ur Specific [place] >= 1.030 H (1.010-1.025) Urine Protein >=300 H (Neg-Trace) mg/dL Urine Glucose (UA) Normal (Normal) mg/dL Urine Ketones Negative (Negative) mg/dL Urine Blood Large H (Negative) Urine Nitrite Negative (Negative) Urine Bilirubin Small H (Negative) Urine Urobilinogen Normal (Normal) mg/dL Ur Leukocyte Esterase Negative (Negative) Urine Microscopic RBC TNTC H (0-3) per hpf Urine Microscopic WBC 0-3 (0-3) per hpf Ur Culture Indicated? NO (NO) - Radiology Data Radiology results reviewed: Yes I reviewed the patient's radiology results. - EKG Data EKG #1 EKG attestation: Yes I reviewed and interpreted this EKG. EKG results narrative: EKG shows possible atrial fibrillation but more likely sinus with PACs and PVCs. There is a tremendous amount of interference making it difficult to ascertain rate is 78 bpm frustration 97 ms QTQTC intervals 390 and 423 ms respectively R axis of 37 degrees. There is no acute ST elevation.
[2018-06-11 09:39] LABS: Basophils # 0.1 K/mcL (0.0-0.2); Basophils % 0.3 %; Eosinophils # 0.1 K/mcL (0.0-0.6); Eosinophils % 0.6 %; Hematocrit 32.5 % (37.5-50.1); Hemoglobin 10.1 g/dL (12.9-16.9); Immature Granulocytes % 0.7 % (0-4); Lymphocytes # 0.6 K/mcL (0.6-4.6); Lymphocytes % 4.2 %; Mean Corpuscular HGB Conc 31.1 g/dL (31.6-35.5); Mean Corpuscular Hemoglobin 27.3 pg (28.0-33.3); Mean Corpuscular Volume 87.8 fL (83.0-100.0); Mean Platelet Volume 8.4 fL (9.4-12.4); Monocytes # 1.3 K/mcL (0.0-1.3); Monocytes % 8.5 %; Platelet Count 245 K/mcL (140-400); Segmented Neutrophils % 85.7 %
[2018-06-11 09:43] LABS: Neutrophils # 12.9 K/mcL (1.6-8.9)
[2018-06-11 09:55] LABS: Alanine Aminotransferase 14 Units/L (7-52); Albumin 3.2 g/dL (3.5-5.7); Albumin/Globulin Ratio 0.9 (1.1-2.2); Alkaline Phosphatase 168 Units/L (34-104); Aspartate Amino Transferase 10 Units/L (13-39); BUN/Creatinine Ratio 16 (6-26); Bilirubin,Total 1.6 mg/dL (0.3-1.0); Blood Urea Nitrogen 13 mg/dL (8-23); Calcium 8.9 mg/dL (8.6-10.3); Carbon Dioxide 25 mEq/L (23-29); Chloride 108 mEq/L (98-107); Globulin 3.5 g/dL (2.4-3.5); Glucose 130 mg/dL (70-105); Osmolality,Calculated 298 (280-300); Sodium 143 mEq/L (136-145); Total Protein 6.7 g/dL (6.4-8.9); eGFR For Non-African Americans > 60 (> 60)
[2018-06-11 09:56] LABS: Troponin I < 0.03 ng/mL (< 0.04)
[2018-06-11 11:44] LABS: Bilirubin,Urine Small (Negative); Blood,Urine Large (Negative); Clarity,Urine Clear (Clear); Color,Urine Yellow (Yellow); Glucose,Urine (UA) Normal (Normal); Ketones,Urine Negative (Negative); Leukocyte Esterase,Urine Negative (Negative); Nitrite,Urine Negative (Negative); PH,Urine 5.5 pH Units (5.0-8.0); Protein,Urine >=300 mg/dL (Neg-Trace); Specific Gravity,Urine >= 1.030 (1.010-1.025); Urobilinogen,Urine Normal (Normal)
[2018-06-11 11:45] LABS: RBC,Urine TNTC per hpf (0-3); WBC,Urine 0-3 per hpf (0-3)
[2018-06-11] MEDS ORDERED: 0.9 % Sodium Chloride 1,000 ML IVC SCH (12:30)
[2018-06-11] MEDS ORDERED: Naloxone 0.4 MG/ML INJ IVP PRN (13:33)
[2018-06-11] MEDS: 0.9 % Sodium Chloride 1,000 ML IVC SCH ×2 (14:13→23:27)
[2018-06-11] MEDS: Sucralfate 1 GM TABLET PO SCH ×2 (16:57→21:21)
[2018-06-11] MEDS: Apixaban 5 MG TABLET PO SCH (21:21)
[2018-06-12 06:17] LABS: Basophils % 0.3 %; Eosinophils # 0.1 K/mcL (0.0-0.6); Hematocrit 28.2 % (37.5-50.1); Immature Granulocytes % 0.7 % (0-4); Lymphocytes # 0.5 K/mcL (0.6-4.6); Lymphocytes % 4.5 %; Mean Corpuscular HGB Conc 30.1 g/dL (31.6-35.5); Mean Corpuscular Hemoglobin 26.6 pg (28.0-33.3); Mean Corpuscular Volume 88.1 fL (83.0-100.0); Mean Platelet Volume 8.8 fL (9.4-12.4); Monocytes # 1.1 K/mcL (0.0-1.3); Monocytes % 8.9 %; Neutrophils # 10.1 K/mcL (1.6-8.9); Platelet Count 208 K/mcL (140-400); Red Cell Distribution Width 21.4 % (11.5-14.5); Segmented Neutrophils % 84.6 %
[2018-06-12 06:29] LABS: BUN/Creatinine Ratio 19 (6-26); Blood Urea Nitrogen 13 mg/dL (8-23); Calcium 8.4 mg/dL (8.6-10.3); Carbon Dioxide 24 mEq/L (23-29); Chloride 118 mEq/L (98-107); Glucose 129 mg/dL (70-105); Osmolality,Calculated 288 (280-300); Potassium 3.4 mEq/L (3.5-5.1); Sodium 138 mEq/L (136-145); eGFR For Non-African Americans > 60 (> 60)
[2018-06-12] MEDS: Sucralfate 1 GM TABLET PO SCH ×4 (06:36→21:35)
[2018-06-12 06:43] LABS: Hemoglobin 8.5 g/dL (12.9-16.9)
[2018-06-12] MEDS: Apixaban 5 MG TABLET PO SCH ×2 (09:25→21:35)
[2018-06-12] MEDS: Aspirin Enteric Coated 81 MG Tablet PO SCH (09:25)
[2018-06-12] MEDS: 0.9 % Sodium Chloride 1,000 ML IVC SCH ×2 (09:26→15:07)
--- NOTE | 2018-06-12 15:17 | Internal Med History&Physical ---
Addendum entered and electronically signed by Bro Bolivar MD 06/13/18 14:43: I have personally performed a face to face evaluation on this patient. I have r eviewed and agree with the care plan. History and Exam by me shows: Patient is confused and social history is as noted below and from staff as well as emergency physician. There is no known infection or infectious process, breathing problems, etc. Patient known to me and he is certainly more confused than at his last discharge. Patient has no complaint of chest discomfort, dyspnea, orthopnea, breathing problems, palpitations, nausea or vomiting, constipation or diarrhea, other changes in bowel habits, heartburn, difficulty with urination, kidney problems or kidney stones, fevers chills or sweats, rash or itching, seizures, headache or lightheadedness, heat or cold intolerance, blood problems or anemia, or other new complaints, except as mentioned above. Review of systems is otherwise negative. Examination: (Except as mentioned above): General: In no apparent distress, alert and oriented 1. This is his baseline. Head: Atraumatic and normocephalic. Eyes: Extraocular muscles are intact, pupils equal round and reactive to light and accommodation. Sclerae anicteric. Ears: External ears are normal to inspection and hearing is grossly normal. Nose: Patent without lesion noted. Mouth: No intraoral lesions seen. Upper and lower plate dentures. Neck: Supple with trachea midline. There is no thyromegaly or adenopathy and carotids are 2+ without bruit heard. Respiratory: No use of accessory muscles. Lungs are clear throughout. Normal airflow. Cardiovascular: Regular rate and rhythm without murmur appreciated. Abdomen: Bowel sounds are normal. No hepatosplenomegaly masses or tenderness. Obese and therefore difficult to palpate deeply. Extremities: No cyanosis clubbing or edema. He continues to wear a left hemithorax. Neurological: A and O 3. Cranial nerves II through XII are intact. No focal deficits and no abnormal movements or postures. Skin: Warm and non-diaphoretic with no lesions noted. Breasts, pelvic and rectal: Not examined. Original Note: Date of Encounter: 06/12/18 Time of Encounter: 15:15 Assessment and Plan (1) General weakness Current visit: Yes Status: Acute assist with ADL's (2) Anemia Current visit: Yes Status: Acute Hemoglobin 8.5. Will order stool for occult blood. Repeat CBC in the morning Qualifiers: Anemia type: unspecified type Qualified Code(s): D64.9 - Anemia, unspecified (3) Knee pain Current visit: Yes Status: Acute monitor. pain controlled. Qualifiers: Chronicity: acute Laterality: left Qualified Code(s): M25.562 - Pain in left knee (4) Atrial fibrillation Current visit: Yes Status: Chronic Rate and rhythm stable. Continue eloquence. Qualifiers: Atrial fibrillation type: unspecified Qualified Code(s): I48.91 - Unspecified atrial fibrillation (5) Hypertension Current visit: Yes Status: Chronic Controlled with current medication. Monitor blood pressure. Qualifiers: Hypertension type: essential hypertension Qualified Code(s): I10 - Essential (primary) hypertension Internal Medicine - H&P: HPI Admitted From: Emergency Dept Plans for Post Hospital Care: Home History of present illness: Mr. Boswell is a 77 year old male here for observation for generalized weakness. Patient fell at home on Sunday, June 08 and presented to the emergency room on June 11 with complaints of left hip and knee pain. states he is not been the same since his fall and he has been sleeping more. Denies hitting has had or loss of consciousness during fall. Patient denies chest pain, shortness breath, fever, chills, nausea vomiting or diarrhea. Alert and oriented times 3. Past medical history includes diabetes, Gerd, hyperlipidemia and hypertension. Elevated white count on admission. Today is 11.9. Patient is anemic at 8.5 hemoglobin, receiving IV fluids. 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 - Social History Smoking Status: Never smoker Smokeless Tobacco Status: No Alcohol use: none Drug use: none - Family History Mother Hx Family Neurologic Disorders: Yes (CVA) Father Adopted: No Family Member Ethnicity: Non- Living Status: Hx Family Cardiac Disorders: No Hx Family Respiratory Disorders: No Hx Family Cancer: No Hx Family GI Disorders: No Hx Family Endocrine Disorder: No Hx Family Neuromuscular Disorders: No Hx Family Neurologic Disorders: No Hx Family HEENT Disorders: No Hx Family Autoimmune Disorders: Yes Internal Medicine - H&P: Meds Aspirin Enteric Coated [Aspirin EC] 81 mg PO DAILY 07/13/17 [History] Atorvastatin [Lipitor] 40 mg PO DAILY 07/13/17 [History] Apixaban [Eliquis] 5 mg PO BID #60 tablet 05/10/18 [Rx] DULoxetine [Cymbalta] 20 mg PO DAILY #30 capsule. 05/10/18 [Rx] Metoprolol [Lopressor] 25 mg PO BID #60 tablet 05/10/18 [Rx] Omeprazole [PriLOSEC] 40 mg PO DAILY #30 cap 05/10/18 [Rx] Sucralfate [Carafate] 1 gm PO QIDAC #120 tablet 05/10/18 [Rx] Allergy/AdvReac Type Severity Reaction Status Date / Time No Known Allergies Allergy Verified 06/11/18 09:05 All Systems PM: A 10-system review of systems was performed and is negative for pertinent findings except as documented above in the HPI. - Constitutional Constitutional: no chills, no fever(s), no night sweats - EENT Eyes: no change in vision, no discharge, no pain, no photophobia Ears: no ear discharge, no ear pain, no tinnitus Nose, mouth and throat: no dysphagia, no nasal discharge, no neck pain, no sore throat - Cardiovascular Cardiovascular ROS IM: no chest pain, no diaphoresis, no dyspnea, no lightheadedness, no palpitations, no syncope - Respiratory Respiratory: no cough, no dyspnea, no wheezing, no excessive phlegm production - Gastrointestinal Gastrointestinal: no abdominal pain, no diarrhea, no hematemesis, no hematochezia, no melena, no nausea, no vomiting - Musculoskeletal Musculoskeletal ROS IM: no numbness, no tingling - Integumentary Integumentary IM: no rash, no unusual bruising - Neurological Neurological ROS: no confusion, no convulsions, no focal weakness, no numbness, no tingling, no tremor(s) - Hematologic/Lymphatic Hematologic/Lymphatic: no easy bruising - Constitutional Vitals: Temp Pulse Resp BP Pulse Ox 98.1 F 55 18 136/85 95 06/12/18 11:58 06/12/18 11:58 06/12/18 11:58 06/12/18 11:58 06/12/18 11:58 General appearance: Present: cooperative, A&O X 3, pleasant, no acute distress, answers questions appropriately Exam: present during evaluation - Head Head exam: Present: atraumatic, normocephalic - Eye Eye exam: Present: PERRL, conjuntiva pink, sclera anicteric Pupils: Present: PERRL - Neck Neck exam general surgery: Present: supple, trachea midline. Absent: lymphadenopathy - Respiratory Respiratory exam: Present: CTAB. Absent: accessory muscle use, rales, rhonchi, wheezes - Cardiovascular Cardiovascular exam: Present: RRR, +S1, +S2. Absent: diastolic murmur, gallop, rubs, systolic murmur - GI/Abdominal GI/Abdominal exam: Present: normal bowel sounds, soft, no peritoneal signs. Absent: distended, tenderness - Extremities Exam Extremities exam: Present: warm, radial pulses palpable and symmetrical. Absent: calf tenderness, cyanotic, pedal edema Additional comments: Non-pitting edema bilateral lower extremities. Discoloration to lower extremities. - Neurological Exam Neurological exam: Present: CN II-XII intact, oriented X3, no focal deficits. Absent: pronater drift, facial droop, speech deficit - Skin Skin exam: Present: dry, intact Internal Med - H&P Results - Labs CBC & Chem 7: 06/12/18 05:25 06/12/18 05:25 Labs: Short CBC 06/12/18 Range/Units 05:25 WBC 11.9 H (4.3-11.1) K/mcL Hgb 8.5 L D (12.9-16.9) g/dL Hct 28.2 L (37.5-50.1) % Plt Count 208 (140-400) K/mcL Neutrophils # 10.1 H (1.6-8.9) K/mcL BMP 06/12/18 05:25 Sodium 138 Potassium 3.4 L Chloride 118 H Carbon Dioxide 24 BUN 13 Creatinine 0.70 Glucose 129 H Calcium 8.4 L
[2018-06-13 11:55] LABS: Basophils % 0.2 %; Eosinophils # 0.2 K/mcL (0.0-0.6); Eosinophils % 1.9 %; Hematocrit 27.1 % (37.5-50.1); Hemoglobin 8.2 g/dL (12.9-16.9); Immature Granulocytes % 0.5 % (0-4); Lymphocytes # 0.6 K/mcL (0.6-4.6); Lymphocytes % 6.5 %; Mean Corpuscular HGB Conc 30.3 g/dL (31.6-35.5); Mean Corpuscular Volume 89.1 fL (83.0-100.0); Mean Platelet Volume 9.2 fL (9.4-12.4); Monocytes # 0.8 K/mcL (0.0-1.3); Monocytes % 8.5 %; Neutrophils # 8.1 K/mcL (1.6-8.9); Platelet Count 226 K/mcL (140-400); Red Blood Count 3.04 M/mcL (4.19-5.50); Red Cell Distribution Width 21.2 % (11.5-14.5); Segmented Neutrophils % 82.4 %
[2018-06-13 12:13] LABS: BUN/Creatinine Ratio 17 (6-26); Blood Urea Nitrogen 12 mg/dL (8-23); Calcium 8.1 mg/dL (8.6-10.3); Carbon Dioxide 22 mEq/L (23-29); Chloride 111 mEq/L (98-107); Glucose 133 mg/dL (70-105); Osmolality,Calculated 292 (280-300); Potassium 3.4 mEq/L (3.5-5.1); Sodium 140 mEq/L (136-145); eGFR For Non-African Americans > 60 (> 60)
--- NOTE | 2018-06-13 14:48 | Internal Med Progress Note ---
Date of Encounter: 06/13/18 Time of Encounter: 14:46 - Assessment and plan (1) Altered mental status Current Visit: Yes Status: Acute Assessment and plan: I am concerned that he has a low-grade temperature with mental status changes. We will repeat his CAT scan. We will also be looking at urine sample, etc. I think that he requires additional assessment because his is unable to care for him, at home. Qualifiers: Altered mental status type: unspecified Qualified Code(s): R41.82 - Altered mental status, unspecified (2) Atrial fibrillation Current Visit: Yes Status: Chronic Assessment and plan: Chronic and with no acute symptoms or changes. He sounds like he is in atrial fibrillation with controlled rate, today. Qualifiers: Atrial fibrillation type: unspecified Qualified Code(s): I48.91 - Unspecified atrial fibrillation (3) Dehydration Current Visit: Yes Status: Acute Assessment and plan: I think this is resolved and will change to heparin lock. (4) Anemia Current Visit: Yes Status: Acute Assessment and plan: This is disconcerting giving his history of hemorrhagic ulcer. We will need to follow with this. Qualifiers: Anemia type: unspecified type Qualified Code(s): D64.9 - Anemia, unspecified - Subjective Interval history: Patient is without complaint. He is very confused. His mental status is less oriented than his last admission. He is focused on a fly in his room. There is minimal insight. Patient has no complaint of chest discomfort, dyspnea, orthopnea, palpitations, nausea or vomiting, constipation or diarrhea, other changes in bowel habits, difficulty with urination, rash or itching, or other new complaints, except as mentioned above. Review of systems is otherwise negative. I discussed management of her care with nursing staff. - Constitutional Vitals: Temp Pulse Resp BP Pulse Ox 99.5 F 61 18 141/63 94 06/13/18 13:00 06/13/18 13:00 06/13/18 13:00 06/13/18 13:00 06/13/18 13:00 Exam: Examination: (Except as mentioned above): General: In no apparent distress. Alert and oriented 1. Nondiaphoretic. Head: Atraumatic and normocephalic. Respiratory: No use of accessory muscles. Lungs are clear throughout. Normal airflow. Cardiovascular: Regular rate and rhythm without murmur appreciated. Abdomen: Bowel sounds are normal. No hepatosplenomegaly mass or tenderness appreciated. Obese and therefore difficult to palpate deeply. Extremities: No cyanosis clubbing or edema. Skin: Warm and non-diaphoretic with no new lesions noted. Neurologic: As above, he is more disoriented than before. Internal Medicine: Result - Labs CBC & Chem 7: 06/13/18 07:15 06/13/18 07:15 Labs: Short CBC 06/13/18 Range/Units 07:15 WBC 9.8 (4.3-11.1) K/mcL Hgb 8.2 L (12.9-16.9) g/dL Hct 27.1 L (37.5-50.1) % Plt Count 226 (140-400) K/mcL Neutrophils # 8.1 (1.6-8.9) K/mcL BMP 06/13/18 07:15 Sodium 140 Potassium 3.4 L Chloride 111 H Carbon Dioxide 22 L BUN 12 Creatinine 0.71 Glucose 133 H Calcium 8.1 L - Impressions Impressions Head CT 06/13/18 12:35 IMPRESSION: No acute intracranial abnormality. D/ / Meño Abdi MD / Meño Abdi MD Interpreting Provider: Meño Abdi MD Consult Discharge Plan - Plan Referrals: Kenny Mendoza DO [Primary Care Provider] -
--- NOTE | 2018-06-13 16:13 | Electrocardiograph Report ---
[place] [address] Test Date: 2018-06-11 Pat Name: Miguel Boswell Department: 2000 Room: 116 Gender: M Erp Specialist: PENELOPE : 1940 Requested By: Patrice Call Order Number: [id number] Reading MD: Nazanin Coates Measurements Intervals [place] Rate: 78 P: AL: 0 QRS: 37 QRSD: 97 T: 18 QT: 390 QTc: 423 Interpretive Statements Baseline artifact limits interpretation Electronically Signed On 06-13-2018 16:12:08 EDT by Nazanin Coates
[2018-06-13] MEDS: Sucralfate 1 GM TABLET PO SCH ×3 (17:54→20:14)
[2018-06-13] MEDS: Aspirin Enteric Coated 81 MG Tablet PO SCH (19:29)
[2018-06-13] MEDS: Apixaban 5 MG TABLET PO SCH ×2 (19:30→20:14)
[2018-06-13] MEDS: 0.9 % Sodium Chloride 1,000 ML IVC SCH ×2 (19:33)
[2018-06-14] MEDS: Sucralfate 1 GM TABLET PO SCH ×4 (06:12→20:06)
[2018-06-14 07:46] LABS: Hematocrit 26.4 % (37.5-50.1); Hemoglobin 8.1 g/dL (12.9-16.9); Mean Corpuscular HGB Conc 30.7 g/dL (31.6-35.5); Mean Platelet Volume 9.1 fL (9.4-12.4); Platelet Count 248 K/mcL (140-400); Red Cell Distribution Width 20.5 % (11.5-14.5)
[2018-06-14 08:36] LABS: Bilirubin,Urine Negative (Negative); Blood,Urine Large (Negative); Clarity,Urine Clear (Clear); Color,Urine Yellow (Yellow); Glucose,Urine (UA) Normal (Normal); Ketones,Urine Negative (Negative); Leukocyte Esterase,Urine Negative (Negative); Nitrite,Urine Negative (Negative); Protein,Urine 100 mg/dL (Neg-Trace); Specific Gravity,Urine >= 1.030 (1.010-1.025); Urobilinogen,Urine Normal (Normal)
[2018-06-14 08:56] LABS: Amorphous Sediment,Urine Many (Few); Squamous Epithelial Cell,Urine Few per lpf (None-Few)
[2018-06-14] MEDS: Aspirin Enteric Coated 81 MG Tablet PO SCH (10:14)
[2018-06-14] MEDS: Apixaban 5 MG TABLET PO SCH ×2 (10:14→20:05)
--- NOTE | 2018-06-14 13:30 | Internal Med Progress Note ---
Date of Encounter: 06/14/18 Time of Encounter: 13:28 - Assessment and plan (1) Altered mental status Current Visit: Yes Status: Acute Assessment and plan: There is no sign of infection and laboratory has been otherwise unremarkable. His hemoglobin is low at 8.2 which means this could represent a manic anemia. His vital signs are stable and apparently per BM P he has developed mild heart failure after infusion of fluids, over the last day or so. We will give him a dose of IV Lasix and follow. Repeat CAT scan was unremarkable and calcium is normal. Will check a screening TSH. Qualifiers: Altered mental status type: unspecified Qualified Code(s): R41.82 - Altered mental status, unspecified (2) Atrial fibrillation Current Visit: Yes Status: Chronic Assessment and plan: Rate is controlled and he is not on anticoagulation because of family preference. Qualifiers: Atrial fibrillation type: unspecified Qualified Code(s): I48.91 - Unspecified atrial fibrillation (3) Dehydration Current Visit: Yes Status: Acute Assessment and plan: Clinically resolved. (4) Anemia Current Visit: Yes Status: Acute Assessment and plan: This is currently stable but see above regarding possible symptomatic change in mental status. Heme positive stool is a concern. Qualifiers: Anemia type: unspecified type Qualified Code(s): D64.9 - Anemia, unspecified - Subjective Interval history: Patient is without complaint. He remains very confused. He has no complaints but is obviously fatigued and slow to respond. Nursing notes that he is sleeping most of the time. Patient has no complaint of chest discomfort, dyspnea, orthopnea, palpitations, nausea or vomiting, constipation or diarrhea, other changes in bowel habits, dif ficulty with urination, rash or itching, or other new complaints, except as mentioned above. Review of systems is otherwise negative. I discussed management of her care with nursing staff. - Constitutional Vitals: Temp Pulse Resp BP Pulse Ox 97.9 F 64 14 149/77 95 06/14/18 11:38 06/14/18 11:38 06/14/18 11:38 06/14/18 11:38 06/14/18 11:38 Exam: Examination: (Except as mentioned above): General: In no apparent distress. Alert and oriented 1. Nondiaphoretic. Head: Atraumatic and normocephalic. Respiratory: No use of accessory muscles. Lungs are clear throughout. Normal airflow. Cardiovascular: Regular rate and rhythm without murmur appreciated. Abdomen: Bowel sounds are normal. No hepatosplenomegaly mass or tenderness appreciated. Obese and therefore difficult to palpate deeply. Patient is examined upright in chair and this also limits exam. Extremities: No cyanosis clubbing or edema. Skin: Warm and non-diaphoretic with no new lesions noted. Internal Medicine: Result - Labs CBC & Chem 7: 06/14/18 06:30 06/13/18 07:15 Labs: Short CBC 06/14/18 Range/Units 06:30 WBC 10.3 (4.3-11.1) K/mcL Hgb 8.1 L (12.9-16.9) g/dL Hct 26.4 L (37.5-50.1) % Plt Count 248 (140-400) K/mcL Urine 06/14/18 Range/Units 08:00 Urine Color Yellow (Yellow) Urine Clarity Clear (Clear) Urine pH 6.0 (5.0-8.0) pH Units Ur Specific [place] >= 1.030 H (1.010-1.025) Urine Protein 100 H (Neg-Trace) mg/dL Urine Glucose (UA) Normal (Normal) mg/dL - Impressions Impressions Head CT 06/13/18 12:35 IMPRESSION: No acute intracranial abnormality. D/ / 06/13/2018 15:25:45 Meño Abdi MD / shirin Interpreting Provider: Meño Abdi MD - VTE Reasons for not Prescribing Prophylaxis: Refused by parent Consult Discharge Plan - Plan Referrals: Kenny Mendoza DO [Primary Care Provider] -
[2018-06-14 14:10] LABS: BUN/Creatinine Ratio 17 (6-26); Blood Urea Nitrogen 12 mg/dL (8-23); Calcium 8.1 mg/dL (8.6-10.3); Carbon Dioxide 23 mEq/L (23-29); Chloride 112 mEq/L (98-107); Glucose 148 mg/dL (70-105); Magnesium 1.7 mg/dL (1.6-2.6); Osmolality,Calculated 293 (280-300); Potassium 3.4 mEq/L (3.5-5.1); Sodium 140 mEq/L (136-145); eGFR For Non-African Americans > 60 (> 60)
[2018-06-14 15:09] LABS: Thyroid Stimulating Hormone 2.078 mcIU/mL (0.340-5.600)
[2018-06-15] MEDS: Sucralfate 1 GM TABLET PO SCH ×4 (05:21→20:49)
[2018-06-15] MEDS: Aspirin Enteric Coated 81 MG Tablet PO SCH (07:59)
[2018-06-15] MEDS: Apixaban 5 MG TABLET PO SCH ×2 (07:59→20:49)
--- NOTE | 2018-06-15 17:02 | Internal Med Progress Note ---
Date of Encounter: 06/15/18 Time of Encounter: 16:20 - Assessment and plan (1) Physical deconditioning Current Visit: Yes Status: Acute Assessment and plan: Continue current therapies. (2) Atrial fibrillation Current Visit: Yes Status: Chronic Assessment and plan: Continue current regimen, including Eliquis. Qualifiers: Atrial fibrillation type: unspecified Qualified Code(s): I48.91 - Unspecified atrial fibrillation (3) Altered mental status Current Visit: Yes Status: Acute Assessment and plan: A&Ox3 today (got month incorrect, but year was correct). No sign of infection at this time. Continue clinical monitoring. Qualifiers: Altered mental status type: unspecified Qualified Code(s): R41.82 - Altered mental status, unspecified - Time Spent With Patient less than 15 minutes - Subjective Interval history: Feeling "okay," working with therapists. No particular concern at this time. - Constitutional Vitals: Temp Pulse Resp BP Pulse Ox 98.3 F 62 18 126/67 94 06/15/18 07:00 06/15/18 08:02 06/15/18 07:00 06/15/18 07:00 06/15/18 07:00 General appearance: Present: answers questions appropriately Exam: Gen: A&Ox3 (month was off, but year was correct), NAD. HEENT: NCAT. Neck: No palpable lymphadenopathy or thyromegaly. CV: RRR, S1S2. No murmur. Lungs: CTAB. Abd: (+)BS. NDNT. Neuro: Generalized weakness, otherwise non-focal. Skin: No rash. Ext: No pitting edema. Internal Medicine: Result - Labs CBC & Chem 7: 06/14/18 06:30 06/14/18 06:35 - VTE Reasons for not Prescribing Prophylaxis: Refused by parent Consult Discharge Plan - Plan Referrals: Kenny Mendoza DO [Primary Care Provider] -
[2018-06-16 05:09] LABS: Basophils % 0.4 %; Eosinophils % 8.5 %; Hematocrit 24.8 % (37.5-50.1); Hemoglobin 7.8 g/dL (12.9-16.9); Immature Granulocytes % 0.5 % (0-4); Lymphocytes % 8.5 %; Mean Corpuscular HGB Conc 31.5 g/dL (31.6-35.5); Mean Corpuscular Hemoglobin 27.4 pg (28.0-33.3); Monocytes # 0.7 K/mcL (0.0-1.3); Monocytes % 6.5 %; Neutrophils # 8.5 K/mcL (1.6-8.9); Platelet Count 289 K/mcL (140-400); Red Blood Count 2.85 M/mcL (4.19-5.50); Segmented Neutrophils % 75.6 %
[2018-06-16 05:24] LABS: Anisocytosis 1+ (Not Present); Platelet Estimate Normal (Normal)
[2018-06-16] MEDS: Apixaban 5 MG TABLET PO SCH ×2 (07:42→20:21)
[2018-06-16] MEDS: Sucralfate 1 GM TABLET PO SCH ×4 (07:42→20:21)
[2018-06-16] MEDS: Aspirin Enteric Coated 81 MG Tablet PO SCH (07:42)
--- NOTE | 2018-06-16 14:02 | Internal Med Progress Note ---
Date of Encounter: 06/16/18 Time of Encounter: 13:45 - Assessment and plan (1) Physical deconditioning Current Visit: Yes Status: Acute Assessment and plan: Continue current therapies. (2) Atrial fibrillation Current Visit: Yes Status: Chronic Assessment and plan: Continue current regimen, including Eliquis. Qualifiers: Atrial fibrillation type: unspecified Qualified Code(s): I48.91 - Unspecified atrial fibrillation (3) Altered mental status Current Visit: Yes Status: Acute Assessment and plan: A&Ox3 today. No sign of infection at this time. Continue clinical monitoring. Qualifiers: Altered mental status type: unspecified Qualified Code(s): R41.82 - Altered mental status, unspecified (4) Hypertension Current Visit: Yes Status: Chronic Assessment and plan: Will add 5mg of lisinopril daily for now. Continue to monitor and adjust BP regimen as appropriate. Qualifiers: Hypertension type: essential hypertension Qualified Code(s): I10 - Essential (primary) hypertension - Time Spent With Patient less than 15 minutes - Subjective Interval history: Feeling "good," working with therapists. No particular concern at this time. - Constitutional Vitals: Temp Pulse Resp BP Pulse Ox 98.9 F 71 16 180/84 94 06/16/18 08:36 06/16/18 08:36 06/16/18 08:36 06/16/18 08:36 06/16/18 08:36 General appearance: Present: answers questions appropriately Exam: Gen: A&Ox3, NAD. HEENT: NCAT. Neck: No palpable lymphadenopathy or thyromegaly. CV: RRR, S1S2. No murmur. Capillary refill < 2 seconds. Lungs: CTAB. Abd: (+)BS. NDNT. Neuro: Generalized weakness, otherwise non-focal. Skin: No rash. Ext: No pitting edema. Internal Medicine: Result - Labs CBC & Chem 7: 06/16/18 04:45 06/14/18 06:35 Labs: Short CBC 06/16/18 Range/Units 04:45 WBC 11.2 H (4.3-11.1) K/mcL Hgb 7.8 L (12.9-16.9) g/dL Hct 24.8 L (37.5-50.1) % Plt Count 289 (140-400) K/mcL Neutrophils # 8.5 (1.6-8.9) K/mcL - VTE Reasons for not Prescribing Prophylaxis: Refused by parent Consult Discharge Plan - Plan Referrals: Kenny Mendoza DO [Primary Care Provider] -
[2018-06-17 07:25] VITALS: BP 144/79
[2018-06-17] MEDS: Aspirin Enteric Coated 81 MG Tablet PO SCH (09:18)
[2018-06-17] MEDS: Sucralfate 1 GM TABLET PO SCH ×2 (09:18→13:57)
[2018-06-17] MEDS: Apixaban 5 MG TABLET PO SCH (09:18)
[2018-06-17 11:28] LABS: Hematocrit 27.3 % (37.5-50.1); Hemoglobin 8.3 g/dL (12.9-16.9)
--- NOTE | 2018-06-17 13:06 | Discharge Summary ---
Addendum entered and electronically signed by Bro Bolivar MD 06/17/18 13:11: I have personally performed a face to face evaluation on this patient. I have r eviewed and agree with the care plan. History and Exam by me shows: Patient is without complaint and is saying that he "feels stronger." However, he is disoriented except to person. Review of systems, below, is unreliable but negative as can be assessed. Discussed care with other providers and/or nursing. Patient has no complaint of chest discomfort, dyspnea, orthopnea, palpitations, nausea or vomiting, constipation or diarrhea, other changes in bowel habits, difficulty with urination, rash or itching, or other new complaints, except as mentioned above. Review of systems is otherwise negative. Examination: (Except as mentioned above): General: In no apparent distress. Alert and oriented 3. Nondiaphoretic. Head: Atraumatic and normocephalic. Respiratory: No use of accessory muscles. Lungs are clear throughout. Normal airflow. Cardiovascular: Regular rate and rhythm without murmur appreciated. Abdomen: Bowel sounds are normal. No hepatosplenomegaly mass or tenderness appreciated. Obese and therefore difficult to palpate deeply. Patient is examined upright in chair and this also limits exam. Extremities: No cyanosis clubbing or edema. Skin: Warm and non-diaphoretic with no new lesions noted. Discussed with and daughters, recommend follow up blood count and if he goes much lower, will need transfusion and/or follow-up endoscopy. Repeat hemoglobin is 8.4, this morning. Field that his dementia is at the corner of his problem and his is in some degree of denial, about same. Not sure why he has a worsening dementia and would have low threshold to screen for infection, etc. Original Note: Orders not resulted at time of discharge: Pending orders 06/14/18 08:00 Urinalysis Reflex Cult & Micro [URIN] Routine Date of Encounter: 06/17/18 Time of Encounter: 13:04 - Discharge Diagnosis (1) General weakness Priority: Primary Status: Acute Comments: discharging to [facility]. pt mod - min for sit to stand. (2) Anemia Priority: Secondary Status: Acute Comments: Hemoglobin 8.3.improving. Qualifiers: Anemia type: unspecified type Qualified Code(s): D64.9 - Anemia, unspecified (3) Knee pain Priority: Secondary Status: Resolved Comments: no complaints of pain. Qualifiers: Chronicity: acute Laterality: left Qualified Code(s): M25.562 - Pain in left knee (4) Atrial fibrillation Priority: Secondary Status: Chronic Comments: rate and rythm controlled. continue current meds. Qualifiers: Atrial fibrillation type: unspecified Qualified Code(s): I48.91 - Unspecified atrial fibrillation (5) Hypertension Priority: Secondary Status: Chronic Comments: controlled with current meds. monitor BP. Qualifiers: Hypertension type: essential hypertension Qualified Code(s): I10 - Essential (primary) hypertension Hospital course: Mr. Boswell is a 77 year old male discharging to [facility]. Was admitted to inpatient hospital for generalized weakness. Patient has been anemic but asymptomatic. Hemoglobin improving today at 8.3. Had a recent fall prior to admission. CT scan of head was negative. History of dementia, a fib, hypertension and diabetes. Discharge discussed with: patient, family, nurse, social work - Time Spent with Patient Total time spent providing and/or coordinating discharge services: Less than 30 minutes - Discharge Medications Home Medications: Aspirin Enteric Coated [Aspirin EC] 81 mg PO DAILY 07/13/17 [History] Atorvastatin [Lipitor] 40 mg PO DAILY 07/13/17 [History] Apixaban [Eliquis] 5 mg PO BID #60 tablet 05/10/18 [Rx] DULoxetine [Cymbalta] 20 mg PO DAILY #30 capsule. 05/10/18 [Rx] Metoprolol [Lopressor] 25 mg PO BID #60 tablet 05/10/18 [Rx] Omeprazole [PriLOSEC] 40 mg PO DAILY #30 cap 05/10/18 [Rx] Sucralfate [Carafate] 1 gm PO QIDAC #120 tablet 05/10/18 [Rx] Acetaminophen [Tylenol] 500 mg PO Q6HR PRN tablet 06/17/18 [Rx] Lisinopril [Zestril] 5 mg PO DAILY tablet 06/17/18 [Rx] Allergies/Adverse Reactions: Allergy/AdvReac Type Severity Reaction Status Date / Time No Known Allergies Allergy Verified 06/11/18 09:05 Date of admission: 06/13/18 14:55 Primary care physician: Kenny Mendoza Consults: 06/11/18 13:33 Consult to Undercutter [CONS] Routine Reason for SW Consult: possible ECF placement for rehab 06/13/18 14:58 Consult to Physical Therapy [CONS] Routine Comment: Evaluate, develop and implement POC Reason for Consult: Fall risk, dementia, knee pain. Does patient have active BEDREST order?: No Is patient medically & hemodynamically stable?: Yes Discharging clinician: Bro Bolivar Anticipated date of discharge: 06/17/18 - Constitutional Vitals: Temp Pulse Resp BP Pulse Ox 98.2 F 67 20 144/79 92 06/17/18 07:23 06/17/18 07:23 06/17/18 07:23 06/17/18 07:23 06/17/18 07:23 General appearance: Present: cooperative, A&O X 1, pleasant, no acute distress, answers questions appropriately - Head Head exam: Present: atraumatic, normocephalic - Eye Eye exam: Present: PERRL, conjuntiva pink, sclera anicteric Pupils: Present: PERRL - Neck Neck exam general surgery: Present: supple, trachea midline. Absent: lymphadenopathy - Respiratory Respiratory exam: Present: CTAB. Absent: accessory muscle use, rales, rhonchi, wheezes - Cardiovascular Cardiovascular exam: Present: irregular rhythm, +S1, +S2. Absent: diastolic murmur, gallop, rubs, systolic murmur - GI/Abdominal GI/Abdominal exam: Present: normal bowel sounds, soft, no peritoneal signs. Absent: distended, tenderness - Extremities Exam Extremities exam: Present: warm, radial pulses palpable and symmetrical. Absent: calf tenderness, cyanotic, pedal edema Additional comments: Non-pitting edema to bilateral lower extremities - Neurological Exam Neurological exam: Present: CN II-XII intact, oriented X3, no focal deficits. Absent: pronater drift, facial droop, speech deficit - Skin Skin exam: Present: dry, intact - Patient Status Disposition: Transfer SNF Condition: Fair Functional capacity at discharge: wheelchair bound Overall status at discharge: patient is progressing back to baseline - Discharge Instructions Follow Up With: Kenny Mendoza DO [Primary Care Provider] - - Diet and Activity Activity: as per physical therapy Diet: diabetic diet - VTE Reasons for not Prescribing Prophylaxis: Refused by parent
--- NOTE | 2018-06-17 13:36 | Physician Discharge Referral ---
ExtendedCare Referral Info Provider in Charge after Transfer: PCP Institutional Level of Care: Skilled - Diagnosis (1) General weakness Priority: Primary Status: Acute (2) Anemia Priority: Secondary Status: Acute (3) Knee pain Priority: Secondary Status: Resolved (4) Atrial fibrillation Priority: Secondary Status: Chronic (5) Hypertension Priority: Secondary Status: Chronic Prognosis: Fair Aware of Diagnosis: Family Aware of Prognosis: Family - Transfer Medications Home Medications: Aspirin Enteric Coated [Aspirin EC] 81 mg PO DAILY 07/13/17 [History] Atorvastatin [Lipitor] 40 mg PO DAILY 07/13/17 [History] Apixaban [Eliquis] 5 mg PO BID #60 tablet 05/10/18 [Rx] DULoxetine [Cymbalta] 20 mg PO DAILY #30 capsule.dr 05/10/18 [Rx] Metoprolol [Lopressor] 25 mg PO BID #60 tablet 05/10/18 [Rx] Omeprazole [PriLOSEC] 40 mg PO DAILY #30 cap 05/10/18 [Rx] Sucralfate [Carafate] 1 gm PO QIDAC #120 tablet 05/10/18 [Rx] Acetaminophen [Tylenol] 500 mg PO Q6HR PRN tablet 06/17/18 [Rx] Lisinopril [Zestril] 5 mg PO DAILY tablet 06/17/18 [Rx] Allergies/Adverse Reactions: Allergy/AdvReac Type Severity Reaction Status Date / Time No Known Allergies Allergy Verified 06/11/18 09:05 - Respiratory Orders Smoking Cessation: Smoking cessation has been advised. For more information, call the [place] Tobacco Quit Line at 0-516-SZEB-NOW. - Advance Directives Code Status: Full Code - Mobility Orders Chair CERTIFICATION: I certify that the transfer of the above named patient to an Extended Care Facility is necessary for the continuing treatment of the diagnosis listed. The above information is true and accurate reflection of patient's current condition. Confidential - Redisclosure prohibited without a patient's written consent.
== END 2018-06-17 16:00 | DRG 641 ==
LOC: EMEROOGRE 08:44 → INPGRE 08:44

== ENCOUNTER 2018-11-24 13:36 | Inpatient (IN) ==
[2018-11-24] MEDS ORDERED: Ondansetron ODT 4 MG TAB.RAPDIS PO PRN (14:13)
[2018-11-24] MEDS: Ipratropium/Albuterol Neb 3 ML IH SCH (17:57)
[2018-11-24] MEDS: Amoxicillin/Clavulanate 500 MG TABLET PO SCH (18:16)
[2018-11-24] MEDS: Apixaban 5 MG TABLET PO SCH (20:34)
[2018-11-24] MEDS: *HR* HYDROcodone/Acet 5/325 mg TABLET PO PRN (21:40)
[2018-11-25] MEDS: Ipratropium/Albuterol Neb 3 ML IH SCH ×3 (03:31→17:50)
[2018-11-25 05:46] LABS: Basophils % 0.3 %; Eosinophils # 0.5 K/mcL (0.0-0.6); Eosinophils % 5.9 %; Hematocrit 30.1 % (37.5-50.1); Hemoglobin 8.7 g/dL (12.9-16.9); Immature Granulocytes % 0.3 % (0-4); Lymphocytes # 0.8 K/mcL (0.6-4.6); Lymphocytes % 9.2 %; Mean Corpuscular HGB Conc 28.9 g/dL (31.6-35.5); Mean Corpuscular Hemoglobin 23.6 pg (28.0-33.3); Mean Corpuscular Volume 81.6 fL (83.0-100.0); Mean Platelet Volume 9.2 fL (9.4-12.4); Monocytes # 0.7 K/mcL (0.0-1.3); Monocytes % 7.9 %; Neutrophils # 6.8 K/mcL (1.6-8.9); Platelet Count 193 K/mcL (140-400); Red Blood Count 3.69 M/mcL (4.19-5.50); Red Cell Distribution Width 18.7 % (11.5-14.5); Segmented Neutrophils % 76.4 %
[2018-11-25 06:03] LABS: BUN/Creatinine Ratio 18 (6-26); Blood Urea Nitrogen 16 mg/dL (8-23); Calcium 8.4 mg/dL (8.6-10.3); Carbon Dioxide 30 mEq/L (23-29); Chloride 105 mEq/L (98-107); Glucose 155 mg/dL (70-105); Osmolality,Calculated 292 (280-300); Potassium 3.9 mEq/L (3.5-5.1); Sodium 139 mEq/L (136-145); eGFR For Non-African Americans > 60 (> 60)
--- NOTE | 2018-11-25 09:19 | Internal Med History&Physical ---
Date of Encounter: 11/25/18 Time of Encounter: 09:14 Internal Medicine - H&P: HPI Admitted From: Hospital to Hospital Transfer Plans for Post Hospital Care: Home History of present illness: Mr. Boswell is a 78 year old male past medical history of CHF DVT dementia diabetes hyperlipidemia hypertension who is transferred to [facility] from [facility] after experiencing a fall that was felt to be mechanical in nature. He is transferred for OT and PT after a compression fracture of the lumbar spine. Patient was also found to have a urinary tract infection treated with Rocephin and to receive Augmentin forthe next 3 days. Past Med Surg Social Fam HX - Past Medical History Medical history: CHF, DVT, dementia, diabetes, hyperlipidemia, hypertension Psychiatric history: anxiety, depression - Past Surgical History Surgical History: no surgical history Additional surgical history: Apr 02 2018 left second toe amputated - Social History Smoking Status: Never smoker Smokeless Tobacco Status: No Alcohol use: none Drug use: none - Family History Mother Living Status: Hx Family Neurologic Disorders: Yes (CVA) Father Adopted: No Family Member Ethnicity: Non- Living Status: Hx Family Cardiac Disorders: No Hx Family Respiratory Disorders: No Hx Family Cancer: No Hx Family GI Disorders: No Hx Family Endocrine Disorder: No Hx Family Neuromuscular Disorders: No Hx Family Neurologic Disorders: No Hx Family HEENT Disorders: No Hx Family Autoimmune Disorders: Yes Internal Medicine - H&P: Meds Atorvastatin [Lipitor] 40 mg PO DAILY 07/13/17 [History] DULoxetine [Cymbalta] 20 mg PO DAILY #30 capsule. 05/10/18 [Rx] Metoprolol [Lopressor] 25 mg PO BID #60 tablet 05/10/18 [Rx] Omeprazole [PriLOSEC] 40 mg PO DAILY #30 cap 05/10/18 [Rx] Acetaminophen [Tylenol] 500 mg PO Q6HR PRN tablet 06/17/18 [Rx] Lisinopril [Zestril] 5 mg PO DAILY tablet 06/17/18 [Rx] Quetiapine Fumarate [Seroquel] 25 mg PO BID 07/28/18 [History] Apixaban [Eliquis] 5 mg PO BID #60 tablet 08/01/18 [Rx] Furosemide [Lasix] 20 mg PO QAM #0 08/01/18 [Rx] Loperamide [Imodium] 2 mg PO Q4H PRN #0 08/01/18 [Rx] Ondansetron ODT [Zofran ODT] 4 mg PO Q6H PRN tab.rapdis 08/01/18 [Rx] Amoxicillin/Clavulanate [Augmentin] 500 mg PO BIDWM 3 Days #6 tablet 11/24/18 [Rx] Hydrocodone/Acetaminophen [[place] 5-325 Tablet] 1 each PO TID PRN 2 Days #6 tablet 11/24/18 [Rx] Lidocaine Patch [Lidoderm 5% patch] 1 each TP DAILY 2 Days #2 adh..patch 11/24/18 [Rx] Potassium Chloride 10 meq PO BID tab.er.prt 11/24/18 [Rx] Allergy/AdvReac Type Severity Reaction Status Date / Time No Known Allergies Allergy Verified 11/20/18 12:24 All Systems PM: Patient has no complaint of chest discomfort, dyspnea, orthopnea, breathing problems, palpitations, nausea or vomiting, constipation or diarrhea, other changes in bowel habits, heartburn, difficulty with urination, kidney problems or kidney stones, fevers chills or sweats, rash or itching, seizures, headache or lightheadedness, heat or cold intolerance, blood problems or anemia, or other new complaints, except as mentioned above. Review of systems is otherwise ne gative. - Constitutional Vitals: Temp Pulse Resp BP Pulse Ox 97.9 F 58 16 161/84 93 11/25/18 06:08 11/25/18 06:08 11/25/18 06:08 11/25/18 06:08 11/25/18 06:08 Exam: Examination: (Except as mentioned above): General: In no apparent distress, alert and oriented 3. Head: Atraumatic and normocephalic. Eyes: Extraocular muscles are intact, pupils equal round and reactive to light and accommodation. Sclerae anicteric. Ears: External ears are normal to inspection and hearing is grossly normal. Nose: Patent without lesion noted. Mouth: No intraoral lesions seen. Dentition is unremarkable. Neck: Supple with trachea midline. There is no thyromegaly or adenopathy and carotids are 2+ without bruit heard. Respiratory: No use of accessory muscles. Lungs are clear throughout. Normal airflow. Cardiovascular: Regular rate and rhythm without murmur appreciated. Abdomen: Bowel sounds are normal. No hepatosplenomegaly masses or tenderness. Obese and therefore difficult to palpate deeply. Extremities: No cyanosis clubbing or edema. Neurological: A and O 3. Cranial nerves II through XII are intact. No focal deficits and no abnormal movements or postures. Skin: Warm and non-diaphoretic with no lesions noted. Breasts, pelvic and rectal: Not examined. Internal Med - H&P Results - Labs CBC & Chem 7: 11/25/18 05:30 11/25/18 05:30 Labs: Short CBC 11/25/18 Range/Units 05:30 WBC 8.9 (4.3-11.1) K/mcL Hgb 8.7 L (12.9-16.9) g/dL Hct 30.1 L (37.5-50.1) % Plt Count 193 (140-400) K/mcL Neutrophils # 6.8 (1.6-8.9) K/mcL BMP 11/25/18 05:30 Sodium 139 Potassium 3.9 Chloride 105 Carbon Dioxide 30 H BUN 16 Creatinine 0.90 Glucose 155 H Calcium 8.4 L
[2018-11-25] MEDS: Apixaban 5 MG TABLET PO SCH ×2 (09:51→21:36)
[2018-11-25] MEDS: Amoxicillin/Clavulanate 500 MG TABLET PO SCH ×2 (09:51→17:26)
[2018-11-25] MEDS: Furosemide 20 MG TABLET PO SCH (09:51)
--- NOTE | 2018-11-25 17:42 | Physcial Medicine-Consult Note ---
Date of Encounter: 11/25/18 Time of Encounter: 15:30 Physical Medicine - AP (1) Traumatic compression fracture of L1 lumbar vertebra Status: Acute Assessment and plan: Minimal pain at rest, sitting up. Participating in therapies. Good start in rehab. Anemia is a barrier to improvement. Since this is chronic, hes has some tolerance to it. SNOMED Code(s): 865426239 (2) Osteoporosis Status: Acute Assessment and plan: I will discuss Dexa and treatment with Dr. Bolivar if this is appropriate in this patient. Code(s): M81.0 - Age-related osteoporosis without current pathological fracture SNOMED Code(s): 14777864 Physical Medicine - HPI - Data of Consult Requesting Physician: Bro Bolivar MD Primary Care Provider: Kenny Mendoza - Consult Narrative History of present illness: Mr. Boswell is a 78 year old RH male who fell in the bathroom sustaining a L1 superior endplate 10% compression fracture. He was also diagnosed with UTI. He also fell Jul 26, 2018 with L2 compression fracture. His says he sometimes forgets his walker when moving around the house. Currently, he is not hungry and has not been eating much. His validates this has been going on last two weeks. He believes his bowels are moving. His back pain varies with activity. He denies any numbness or tingling in his legs. He feels unsteady on his feet. Denies dizziness or syncope. CC: Bro Bolivar MD Past Med Surg Social Fam HX - Past Medical History Attestation: Yes The following information was validated with the patient. Medical history: CHF, DVT, dementia, diabetes, hyperlipidemia, hypertension Psychiatric history: anxiety, depression - Past Surgical History Surgical History: no surgical history Additional surgical history: Apr 02 2018 left second toe amputated - Social History Smoking Status: Never smoker Smokeless Tobacco Status: No Alcohol use: none Drug use: none - Family History Mother Living Status: Hx Family Neurologic Disorders: Yes (CVA) Father Adopted: No Family Member Ethnicity: Non- Living Status: Hx Family Cardiac Disorders: No Hx Family Respiratory Disorders: No Hx Family Cancer: No Hx Family GI Disorders: No Hx Family Endocrine Disorder: No Hx Family Neuromuscular Disorders: No Hx Family Neurologic Disorders: No Hx Family HEENT Disorders: No Hx Family Autoimmune Disorders: Yes Medications and Allergies Atorvastatin [Lipitor] 40 mg PO DAILY 07/13/17 [History] DULoxetine [Cymbalta] 20 mg PO DAILY #30 capsule.dr 05/10/18 [Rx] Metoprolol [Lopressor] 25 mg PO BID #60 tablet 05/10/18 [Rx] Omeprazole [PriLOSEC] 40 mg PO DAILY #30 cap 05/10/18 [Rx] Acetaminophen [Tylenol] 500 mg PO Q6HR PRN tablet 06/17/18 [Rx] Lisinopril [Zestril] 5 mg PO DAILY tablet 06/17/18 [Rx] Quetiapine Fumarate [Seroquel] 25 mg PO BID 07/28/18 [History] Apixaban [Eliquis] 5 mg PO BID #60 tablet 08/01/18 [Rx] Furosemide [Lasix] 20 mg PO QAM #0 08/01/18 [Rx] Loperamide [Imodium] 2 mg PO Q4H PRN #0 08/01/18 [Rx] Ondansetron ODT [Zofran ODT] 4 mg PO Q6H PRN tab.rapdis 08/01/18 [Rx] Amoxicillin/Clavulanate [Augmentin] 500 mg PO BIDWM 3 Days #6 tablet 11/24/18 [Rx] Hydrocodone/Acetaminophen [[place] 5-325 Tablet] 1 each PO TID PRN 2 Days #6 tablet 11/24/18 [Rx] Lidocaine Patch [Lidoderm 5% patch] 1 each TP DAILY 2 Days #2 adh..patch 11/24/18 [Rx] Potassium Chloride 10 meq PO BID tab.er.prt 11/24/18 [Rx] Allergy/AdvReac Type Severity Reaction Status Date / Time No Known Allergies Allergy Verified 11/20/18 12:24 All systems: reviewed and no additional remarkable complaints except as stated (HPI and PMH.) Physical Medicine - Exam - Constitutional Vitals: Temp Pulse Resp BP Pulse Ox 98.8 F 59 16 121/72 95 11/25/18 16:00 11/25/18 16:00 11/25/18 16:00 11/25/18 16:00 11/25/18 16:00 General appearance: cooperative, no acute distress, thin - Head Head exam: Present: atraumatic, normocephalic - Eye Eye exam: Present: EOMI - ENT ENT exam: Present: mucous membranes moist, normal exam - Neck Neck exam: Present: full ROM - Respiratory Respiratory exam: Present: decreased breath sounds Additional comments: Congested cough - GI/Abdominal GI/Abdominal exam: Present: normal bowel sounds - Extremities Exam Extremities exam: Present: full ROM. Absent: calf tenderness, pedal edema, tenderness Additional comments: Interosseus wasting of the hands. Strength 4-/5 throughout, 3+/5RLE. - Back Exam Back exam: Present: vertebral tenderness - Neurological Exam Neurological exam: Present: abnormal gait, alert, CN II-XII intact, reflexes normal, pronater drift. Absent: motor sensory deficit, oriented X3, facial droop - Psychiatric Psychiatric exam: Present: normal affect, normal mood - Skin Skin exam: Present: intact Physical Medicine - Results - Labs CBC & Chem 7: 11/25/18 05:30 11/25/18 05:30 Labs: Short CBC 11/25/18 Range/Units 05:30 WBC 8.9 (4.3-11.1) K/mcL Hgb 8.7 L (12.9-16.9) g/dL Hct 30.1 L (37.5-50.1) % Plt Count 193 (140-400) K/mcL Neutrophils # 6.8 (1.6-8.9) K/mcL BMP 11/25/18 05:30 Sodium 139 Potassium 3.9 Chloride 105 Carbon Dioxide 30 H BUN 16 Creatinine 0.90 Glucose 155 H Calcium 8.4 L Anemia, Hyperglycemia Consult Discharge Plan - Plan Referrals: Kenny Mendoza DO [Primary Care Provider] -
[2018-11-25] MEDS: *HR* HYDROcodone/Acet 5/325 mg TABLET PO PRN (21:36)
[2018-11-26] MEDS: Ipratropium/Albuterol Neb 3 ML IH SCH ×3 (01:49→18:11)
[2018-11-26] MEDS: Multivit/Ca/Min/Fe/FA 1 TAB TABLET PO SCH (08:56)
[2018-11-26] MEDS: Amoxicillin/Clavulanate 500 MG TABLET PO SCH ×2 (08:57→18:45)
[2018-11-26] MEDS: Furosemide 20 MG TABLET PO SCH (08:57)
[2018-11-26] MEDS: Apixaban 5 MG TABLET PO SCH ×2 (08:57→20:01)
--- NOTE | 2018-11-26 15:11 | Internal Med Progress Note ---
Addendum entered and electronically signed by Bro Bolivar MD 11/26/18 16:07: I have personally performed a face to face evaluation on this patient. I have r eviewed and agree with the care plan. History and Exam by me shows: The patient is without complaint. He admits to mild pain, only, and his back. Earlier in the day, nursing and therapy stated that he had no pain, at all. He denies other problems. Discussed care with other providers and/or nursing. Patient has no complaint of chest discomfort, dyspnea, orthopnea, palpitations, nausea or vomiting, constipation or diarrhea, other changes in bowel habits, difficulty with urination, rash or itching, or other new complaints, except as mentioned above. Review of systems is otherwise negative. Examination: (Except as mentioned above): General: In no apparent distress. Alert and oriented 3. Nondiaphoretic. Head: Atraumatic and normocephalic. Respiratory: No use of accessory muscles. Lungs are clear throughout. Normal airflow. Cardiovascular: Irregularly irregular consistent with his atrial fibrillation, without murmur appreciated. Abdomen: Bowel sounds are normal. No hepatosplenomegaly mass or tenderness appreciated. Obese and therefore difficult to palpate deeply. Patient is examined upright in chair and this also limits exam. Extremities: No cyanosis clubbing or edema. Skin: Warm and non-diaphoretic with no new lesions noted. Pain control seems adequate and patient minimizes. We anticipate discharge later in the week. Original Note: Date of Encounter: 11/26/18 Time of Encounter: 15:09 - Assessment and plan (1) CHF (congestive heart failure) Current Visit: Yes Status: Acute Assessment and plan: No acute issues. Patient does have fine rales heard throughout the lower posterior feels that respiratory effort appears relaxed with no dyspnea. Kristy ent poor historian but denies any shortness of breath. We will continue with current medications. Patient to continue with physical therapy. Qualifiers: Heart failure type: unspecified Heart failure chronicity: unspecified Qualified Code(s): I50.9 - Heart failure, unspecified (2) Atrial fibrillation Current Visit: Yes Status: Chronic Assessment and plan: No acute issues. Patient ventricular heart rate remains less than 100. We will continue with current medications. Qualifiers: Atrial fibrillation type: unspecified Qualified Code(s): I48.91 - Unspecified atrial fibrillation (3) Diabetes mellitus type 2 in nonobese Current Visit: Yes Status: Chronic Assessment and plan: No acute issues. Patient's glucose has remained fairly we will controlled less than 200 on most fingersticks. We will continue with current coverage. (4) Hypertension Current Visit: Yes Status: Chronic Assessment and plan: Vital signs are stable. We will continue with current medications. Qualifiers: Hypertension type: essential hypertension Qualified Code(s): I10 - Essential (primary) hypertension (5) Traumatic compression fracture of L1 lumbar vertebra Current Visit: Yes Status: Acute Assessment and plan: No acute issues. Patient currently denies any discomforts. No neurological deficits noted on exam. Patient ambulating with assistance. We will continue with current plan of care and patient is continue with physical therapy Qualifiers: Encounter type: subsequent encounter Fracture healing: with routine healing Qualified Code(s): S32.010D - Wedge compression fracture of first lumbar vertebra, subsequent encounter for fracture with routine healing - Time Spent With Patient less than 15 minutes - Subjective Interval history: Patient appears relaxed and currently denies any discomforts or shortness of breath. Patient is poor historian due to his dementia but remains pleasant and compliant with care - Constitutional Vitals: Temp Pulse Resp BP Pulse Ox 98.9 F 59 14 162/84 94 11/26/18 08:25 11/26/18 08:25 11/26/18 08:25 11/26/18 08:25 11/26/18 08:25 General appearance: Present: A&O X 1, pleasant Exam: to name only - Head Head exam: Present: atraumatic, normocephalic - Eye Eye exam: Present: PERRL, conjuntiva pink, sclera anicteric Pupils: Present: PERRL - Neck Neck exam general surgery: Present: supple, trachea midline. Absent: lymphadenopathy - Respiratory Respiratory exam: Present: CTAB, rales. Absent: accessory muscle use, rhonchi, wheezes Additional comments: Lungs are clear throughout upper diallo patient noted to have scattered rales heard throughout lower diallo. Straight effort appears relaxed. No productive cough noted. - Cardiovascular Cardiovascular exam: Present: RRR, +S1, +S2. Absent: diastolic murmur, gallop, rubs, systolic murmur - GI/Abdominal GI/Abdominal exam: Present: normal bowel sounds, soft, no peritoneal signs. Absent: distended, tenderness - Extremities Exam Extremities exam: Present: warm, radial pulses palpable and symmetrical. Absent: calf tenderness, cyanotic, pedal edema - Neurological Exam Neurological exam: Present: CN II-XII intact, oriented X3, no focal deficits. Absent: pronater drift, facial droop, speech deficit - Skin Skin exam: Present: dry, intact Internal Medicine: Result - Labs CBC & Chem 7: 11/25/18 05:30 11/25/18 05:30 Consult Discharge Plan - Plan Referrals: Kenny Mendoza DO [Primary Care Provider] -
[2018-11-27] MEDS: Ipratropium/Albuterol Neb 3 ML IH SCH ×3 (01:52→18:28)
[2018-11-27] MEDS: Amoxicillin/Clavulanate 500 MG TABLET PO SCH ×2 (08:24→17:02)
[2018-11-27] MEDS: Apixaban 5 MG TABLET PO SCH ×2 (08:24→20:42)
[2018-11-27] MEDS: Furosemide 20 MG TABLET PO SCH (08:25)
[2018-11-27] MEDS: Multivit/Ca/Min/Fe/FA 1 TAB TABLET PO SCH (08:25)
--- NOTE | 2018-11-27 10:13 | Internal Med Progress Note ---
Addendum entered and electronically signed by Bro Bolivar MD 11/27/18 11:08: I have personally performed a face to face evaluation on this patient. I have r eviewed and agree with the care plan. History and Exam by me shows: Patient denies problems. He states that his pain is mild, stable today. "It has not hurt that much at all." He denies bowel or bladder problems. Discussed care with other providers and/or nursing. Patient has no complaint of chest discomfort, dyspnea, orthopnea, palpitations, nausea or vomiting, constipation or diarrhea, other changes in bowel habits, difficulty with urination, rash or itching, or other new complaints, except as mentioned above. Review of systems is otherwise negative. Examination: (Except as mentioned above): General: In no apparent distress. Alert and oriented 3. Nondiaphoretic. Head: Atraumatic and normocephalic. Respiratory: No use of accessory muscles. Lungs are clear throughout. Normal airflow. Cardiovascular: Irregularly irregular without murmur appreciated. Abdomen: Bowel sounds are normal. No hepatosplenomegaly mass or tenderness appreciated. Obese and therefore difficult to palpate deeply. Patient is examined upright in chair and this also limits exam. Extremities: No cyanosis clubbing or edema. Skin: Warm and non-diaphoretic with no new lesions noted. Original Note: Date of Encounter: 11/27/18 Time of Encounter: 10:06 - Assessment and plan (1) CHF (congestive heart failure) Current Visit: Yes Status: Acute Assessment and plan: No acute issues. Patient does have fine rales heard throughout the lower posterior feels that respiratory effort appears relaxed with no dyspnea. Patient poor historian but denies any shortness of breath. We will continue with current medications. Patient to continue with physical therapy. Qualifiers: Heart failure type: unspecified Heart failure chronicity: unspecified Qualified Code(s): I50.9 - Heart failure, unspecified (2) Atrial fibrillation Current Visit: Yes Status: Chronic Assessment and plan: No acute issues. Patient ventricular heart rate remains less than 100. We will continue with current medications. Qualifiers: Atrial fibrillation type: unspecified Qualified Code(s): I48.91 - Unspecified atrial fibrillation (3) Diabetes mellitus type 2 in nonobese Current Visit: Yes Status: Chronic Assessment and plan: No acute issues. Patient's glucose has remained fairly we will controlled less than 150 on most fingersticks. We will continue with current coverage. (4) Hypertension Current Visit: Yes Status: Chronic Assessment and plan: Vital signs are stable. We will continue with current medications. Qualifiers: Hypertension type: essential hypertension Qualified Code(s): I10 - Essential (primary) hypertension (5) Traumatic compression fracture of L1 lumbar vertebra Current Visit: Yes Status: Acute Assessment and plan: No acute issues. Patient currently denies any discomforts. No neurological deficits noted on exam. Back was palpated with no c/o discomforts. Patient ambulating with assistance. We will continue with current plan of care and patient is continue with physical therapy Qualifiers: Encounter type: subsequent encounter Fracture healing: with routine healing Qualified Code(s): S32.010D - Wedge compression fracture of first lumbar vertebra, subsequent encounter for fracture with routine healing - Time Spent With Patient less than 15 minutes - Subjective Interval history: Patient appears relaxed and currently denies any discomforts or shortness of breath. Patient is poor historian due to his dementia but remains pleasant and compliant with care. Back palpated with patient denying any discomforts - Constitutional Vitals: Temp Pulse Resp BP Pulse Ox 97.8 F 71 14 101/60 93 11/26/18 19:28 11/26/18 19:28 11/26/18 19:28 11/26/18 19:28 11/26/18 19:28 General appearance: Present: A&O X 1, pleasant Exam: oriented to name only - Head Head exam: Present: atraumatic, normocephalic - Eye Eye exam: Present: PERRL, conjuntiva pink, sclera anicteric Pupils: Present: PERRL - Neck Neck exam general surgery: Present: supple, trachea midline. Absent: lymphadenopathy - Respiratory Respiratory exam: Present: CTAB, rales. Absent: accessory muscle use, rhonchi, wheezes Additional comments: Lungs are clear throughout upper diallo with fine posterior bibasilar rales heard. Respiratory effort appears relaxed. No productive cough noted. - Cardiovascular Cardiovascular exam: Present: RRR, +S1, +S2. Absent: diastolic murmur, gallop, rubs, systolic murmur - GI/Abdominal GI/Abdominal exam: Present: normal bowel sounds, soft, no peritoneal signs. Absent: distended, tenderness - Extremities Exam Extremities exam: Present: warm, radial pulses palpable and symmetrical. Absent: calf tenderness, cyanotic, pedal edema - Neurological Exam Neurological exam: Present: CN II-XII intact, oriented X3, no focal deficits. Absent: pronater drift, facial droop, speech deficit - Skin Skin exam: Present: dry, intact Internal Medicine: Result - Labs CBC & Chem 7: 11/25/18 05:30 11/25/18 05:30 Consult Discharge Plan - Plan Referrals: Kenny Mendoza DO [Primary Care Provider] -
[2018-11-28] MEDS: Ipratropium/Albuterol Neb 3 ML IH SCH ×3 (00:03→18:42)
--- NOTE | 2018-11-28 09:19 | Internal Med Progress Note ---
Addendum entered and electronically signed by Bro Bolivar MD 11/28/18 10:53: I have personally performed a face to face evaluation on this patient. I have r eviewed and agree with the care plan. History and Exam by me shows: Nursing notes diarrhea throughout the night. The day shift nurse is minimizing these problems. Will follow. 90 nurse also notices that he is not sleeping. They say that much of the night he is awake and requests something for same. (Last time he was here he required nocturnal haloperidol.) The patient states, however, that he slept well. Patient is without complaint. He does admit to diarrhea, only when asked. He has no breathing or other complaints. Discussed care with other providers and/or nursing. Patient has no complaint of chest discomfort, dyspnea, orthopnea, palpitations, nausea or vomiting, constipation or diarrhea, other changes in bowel habits, difficulty with urination, rash or itching, or other new complaints, except as mentioned above. Review of systems is otherwise negative. Examination: (Except as mentioned above): General: In no apparent distress. Alert and oriented 3. Nondiaphoretic. Head: Atraumatic and normocephalic. Respiratory: No use of accessory muscles. Lungs are clear throughout, except for mild end expiratory wheezing. Normal airflow, with no increase in expirat ory phase.. Cardiovascular: Irregularly irregular consistent with atrial fibrillation without murmur appreciated. Abdomen: Bowel sounds are normal. No hepatosplenomegaly mass or tenderness appreciated. Obese and therefore difficult to palpate deeply. Extremities: No cyanosis clubbing or edema. Skin: Warm and non-diaphoretic with no new lesions noted. Original Note: Date of Encounter: 11/28/18 Time of Encounter: 09:18 - Assessment and plan (1) CHF (congestive heart failure) Current Visit: Yes Status: Acute Assessment and plan: No acute issues. Patient does have fine rales heard throughout the lower posterior feels that respiratory effort appears relaxed with no dyspnea. Patient poor historian but denies any shortness of breath. We will continue with current medications. Patient to continue with physical therapy. Qualifiers: Heart failure type: unspecified Heart failure chronicity: unspecified Qualified Code(s): I50.9 - Heart failure, unspecified (2) Atrial fibrillation Current Visit: Yes Status: Chronic Assessment and plan: No acute issues. Patient ventricular heart rate remains less than 100. We will continue with current medications. Qualifiers: Atrial fibrillation type: unspecified Qualified Code(s): I48.91 - Unspecified atrial fibrillation (3) Diabetes mellitus type 2 in nonobese Current Visit: Yes Status: Chronic Assessment and plan: No acute issues. Patient's glucose has remained fairly we will controlled less than 150 on most fingersticks. We will continue with current coverage. (4) Hypertension Current Visit: Yes Status: Chronic Assessment and plan: Vital signs are stable. We will continue with current medications. Qualifiers: Hypertension type: essential hypertension Qualified Code(s): I10 - Essential (primary) hypertension (5) Traumatic compression fracture of L1 lumbar vertebra Current Visit: Yes Status: Acute Assessment and plan: No acute issues. Patient currently denies any discomforts. No neurological deficits noted on exam. Back was palpated with no c/o discomforts. Patient ambulating with assistance. We will continue with current plan of care and patient is continue with physical therapy Qualifiers: Encounter type: subsequent encounter Fracture healing: with routine healing Qualified Code(s): S32.010D - Wedge compression fracture of first lumbar vertebra, subsequent encounter for fracture with routine healing - Time Spent With Patient less than 15 minutes - Subjective Interval history: Patient appears relaxed and currently denies any discomforts or shortness of breath. Patient is poor historian due to his dementia but remains pleasant and compliant with care. No c/o LBP - Constitutional Vitals: Temp Pulse Resp BP Pulse Ox 97.9 F 60 16 156/87 95 11/28/18 07:00 11/28/18 07:00 11/28/18 07:00 11/28/18 07:00 11/28/18 07:00 General appearance: Present: A&O X 1, pleasant Exam: Patient with dementia and confusion his baseline. Patient oriented to name only but having difficulty answering complex questions about time and location. - Head Head exam: Present: atraumatic, normocephalic - Eye Eye exam: Present: PERRL, conjuntiva pink, sclera anicteric Pupils: Present: PERRL - Neck Neck exam general surgery: Present: supple, trachea midline. Absent: lymphadenopathy - Respiratory Respiratory exam: Present: CTAB. Absent: accessory muscle use, rales, rhonchi, wheezes Additional comments: Patient's lungs are clear throughout upper diallo but noted fine rales her to lower posterior diallo. Respiratory effort appears relaxed. No productive cough noted. - Cardiovascular Cardiovascular exam: Present: RRR, +S1, +S2. Absent: diastolic murmur, gallop, rubs, systolic murmur - GI/Abdominal GI/Abdominal exam: Present: normal bowel sounds, soft, no peritoneal signs. Abs ent: distended, tenderness - Extremities Exam Extremities exam: Present: warm, radial pulses palpable and symmetrical. Absent: calf tenderness, cyanotic, pedal edema - Neurological Exam Neurological exam: Present: CN II-XII intact, oriented X3, no focal deficits. Absent: pronater drift, facial droop, speech deficit - Skin Skin exam: Present: dry, intact Internal Medicine: Result - Labs CBC & Chem 7: 11/25/18 05:30 11/25/18 05:30 Consult Discharge Plan - Plan Referrals: Kenny Mendoza DO [Primary Care Provider] -
[2018-11-28] MEDS: Apixaban 5 MG TABLET PO SCH ×2 (09:38→20:57)
[2018-11-28] MEDS: Amoxicillin/Clavulanate 500 MG TABLET PO SCH ×2 (09:38→16:24)
[2018-11-28] MEDS: Furosemide 20 MG TABLET PO SCH (09:38)
[2018-11-28] MEDS: Multivit/Ca/Min/Fe/FA 1 TAB TABLET PO SCH (09:38)
[2018-11-28] MEDS ORDERED: Furosemide 40 MG/4 ML VIAL IVP ONE (19:13)
[2018-11-29] MEDS: Ipratropium/Albuterol Neb 3 ML IH SCH ×3 (03:32→18:10)
[2018-11-29 05:41] LABS: Basophils % 0.5 %; Eosinophils # 0.5 K/mcL (0.0-0.6); Eosinophils % 6.8 %; Hematocrit 28.2 % (37.5-50.1); Hemoglobin 8.5 g/dL (12.9-16.9); Immature Granulocytes % 0.4 % (0-4); Lymphocytes % 12.7 %; Mean Corpuscular HGB Conc 30.1 g/dL (31.6-35.5); Mean Corpuscular Hemoglobin 23.8 pg (28.0-33.3); Mean Platelet Volume 8.9 fL (9.4-12.4); Monocytes # 0.7 K/mcL (0.0-1.3); Monocytes % 8.2 %; Neutrophils # 5.7 K/mcL (1.6-8.9); Platelet Count 218 K/mcL (140-400); Red Blood Count 3.57 M/mcL (4.19-5.50); Red Cell Distribution Width 18.9 % (11.5-14.5); Segmented Neutrophils % 71.4 %
[2018-11-29 06:01] LABS: BUN/Creatinine Ratio 14 (6-26); Blood Urea Nitrogen 15 mg/dL (8-23); Calcium 8.4 mg/dL (8.6-10.3); Carbon Dioxide 26 mEq/L (23-29); Chloride 107 mEq/L (98-107); Glucose 106 mg/dL (70-105); Osmolality,Calculated 293 (280-300); Potassium 3.4 mEq/L (3.5-5.1); Sodium 141 mEq/L (136-145); eGFR For Non-African Americans > 60 (> 60)
[2018-11-29] MEDS: Furosemide 20 MG TABLET PO SCH (07:51)
[2018-11-29] MEDS: Amoxicillin/Clavulanate 500 MG TABLET PO SCH ×2 (07:51→16:48)
[2018-11-29] MEDS: Multivit/Ca/Min/Fe/FA 1 TAB TABLET PO SCH (07:51)
[2018-11-29] MEDS: Apixaban 5 MG TABLET PO SCH ×2 (07:51→21:03)
--- NOTE | 2018-11-29 12:53 | Internal Med Progress Note ---
Addendum entered and electronically signed by Bro Bolivar MD 11/29/18 13:01: I have personally performed a face to face evaluation on this patient. I have r eviewed and agree with the care plan. History and Exam by me shows: Patient is feeling fine. He feels "a lot better than yesterday." However, he is unable to tell me how he feels or why he feels better. He does admit to less cough. Discussed care with other providers and/or nursing. Patient has no complaint of chest discomfort, dyspnea, orthopnea, palpitations, nausea or vomiting, constipation or diarrhea, other changes in bowel habits, difficulty with urination, rash or itching, or other new complaints, except as mentioned above. Review of systems is otherwise negative. Examination: (Except as mentioned above): General: In no apparent distress. Alert and oriented 3. Nondiaphoretic. Head: Atraumatic and normocephalic. Respiratory: No use of accessory muscles. Lungs are clear throughout. Normal airflow. Cardiovascular: Regular rate and rhythm without murmur appreciated. Abdomen: Bowel sounds are normal. No hepatosplenomegaly mass or tenderness appreciated. Obese and therefore difficult to palpate deeply. Patient is examined upright in chair and this also limits exam. Extremities: No cyanosis clubbing or change in edema. Skin: Warm and non-diaphoretic with no new lesions noted. Nursing notes that he is doing well from the standpoint of sleeping and sedation at night, with Haldol. However, he did complain of itching and when necessary Benadryl has been ordered. Original Note: Date of Encounter: 11/29/18 Time of Encounter: 12:51 - Assessment and plan (1) CHF (congestive heart failure) Current Visit: Yes Status: Acute Assessment and plan: No acute issues. Patient does have fine rales heard throughout the lower posterior feels that respiratory effort appears relaxed with no dyspnea. Patient poor historian but denies any shortness of breath. We will continue with current medications. Patient to continue with physical therapy. Qualifiers: Heart failure type: unspecified Heart failure chronicity: unspecified Qualified Code(s): I50.9 - Heart failure, unspecified (2) Atrial fibrillation Current Visit: Yes Status: Chronic Assessment and plan: No acute issues. Patient ventricular heart rate remains less than 100. We will continue with current medications. Qualifiers: Atrial fibrillation type: unspecified Qualified Code(s): I48.91 - Unspecified atrial fibrillation (3) Diabetes mellitus type 2 in nonobese Current Visit: Yes Status: Chronic Assessment and plan: No acute issues. Patient's glucose has remained fairly we will controlled less than 150 on most fingersticks. We will continue with current coverage. (4) Hypertension Current Visit: Yes Status: Chronic Assessment and plan: Vital signs are stable. We will continue with current medications. Qualifiers: Hypertension type: essential hypertension Qualified Code(s): I10 - Essential (primary) hypertension (5) Traumatic compression fracture of L1 lumbar vertebra Current Visit: Yes Status: Acute Assessment and plan: No acute issues. Patient currently denies any discomforts. No neurological deficits noted on exam. Back was palpated with no c/o discomforts. Patient ambulating with assistance. We will continue with current plan of care and patient is continue with physical therapy Qualifiers: Encounter type: subsequent encounter Fracture healing: with routine healing Qualified Code(s): S32.010D - Wedge compression fracture of first lumbar vertebra, subsequent encounter for fracture with routine healing - Time Spent With Patient less than 15 minutes - Subjective Interval history: Patient appears relaxed and currently denies any discomforts or shortness of breath. Patient is poor historian due to his dementia but remains pleasant and compliant with care. No c/o LBP. Patient has had complaints of loose stools. - Constitutional Vitals: Temp Pulse Resp BP Pulse Ox 97.8 F 61 19 143/88 95 11/29/18 08:10 11/29/18 08:10 11/29/18 11:28 11/29/18 08:10 11/29/18 11:28 General appearance: Present: cooperative, A&O X 2, pleasant Exam: Patient remains somewhat confused with time - Head Head exam: Present: atraumatic, normocephalic - Eye Eye exam: Present: PERRL, conjuntiva pink, sclera anicteric Pupils: Present: PERRL - Neck Neck exam general surgery: Present: supple, trachea midline. Absent: lymphadenopathy - Respiratory Respiratory exam: Present: CTAB. Absent: accessory muscle use, rales, rhonchi, wheezes Additional comments: Lungs are clear throughout upper vitals patient continues to have fine rales are to lower posterior diallo. History of her appears relaxed. Patient observed exercising during physical therapy and appears to be tolerating well. - Cardiovascular Cardiovascular exam: Present: irregular rhythm, RRR, +S1, +S2. Absent: diast olic murmur, gallop, rubs, systolic murmur - GI/Abdominal GI/Abdominal exam: Present: normal bowel sounds, soft, no peritoneal signs. Absent: distended, tenderness - Extremities Exam Extremities exam: Present: warm, radial pulses palpable and symmetrical. Absent: calf tenderness, cyanotic, pedal edema - Neurological Exam Neurological exam: Present: CN II-XII intact, oriented X3, no focal deficits. Absent: pronater drift, facial droop, speech deficit - Skin Skin exam: Present: dry, intact Internal Medicine: Result - Labs CBC & Chem 7: 11/29/18 04:56 11/29/18 04:56 Labs: Short CBC 11/29/18 Range/Units 04:56 WBC 7.9 (4.3-11.1) K/mcL Hgb 8.5 L (12.9-16.9) g/dL Hct 28.2 L (37.5-50.1) % Plt Count 218 (140-400) K/mcL Neutrophils # 5.7 (1.6-8.9) K/mcL BMP 11/29/18 04:56 Sodium 141 Potassium 3.4 L Chloride 107 Carbon Dioxide 26 BUN 15 Creatinine 1.10 Glucose 106 H Calcium 8.4 L - Impressions Impressions Chest X-Ray 11/28/18 17:43 IMPRESSION: Findings suggest congestive heart failure D/ / Ranjan Alva MD / Ranjan Alva MD Interpreting Provider: Ranjan Alva MD Consult Discharge Plan - Plan Referrals: Kenny Mendoza DO [Primary Care Provider] -
[2018-11-30] MEDS: Ipratropium/Albuterol Neb 3 ML IH SCH ×3 (04:32→17:27)
[2018-11-30] MEDS: Apixaban 5 MG TABLET PO SCH ×2 (08:32→20:01)
[2018-11-30] MEDS: Furosemide 20 MG TABLET PO SCH (08:32)
[2018-11-30] MEDS: Amoxicillin/Clavulanate 500 MG TABLET PO SCH (08:32)
[2018-11-30] MEDS: Multivit/Ca/Min/Fe/FA 1 TAB TABLET PO SCH (08:33)
--- NOTE | 2018-11-30 13:40 | Internal Med Progress Note ---
Date of Encounter: 11/30/18 Time of Encounter: 13:38 - Assessment and plan (1) Vertebral fracture Current Visit: No Status: Acute Assessment and plan: This is improving with apparently, less pain. He is to continue therapy and p lanned discharge on 12/03/2017. Qualifiers: Encounter type: initial encounter Fracture of vertebra location: lumbar Lumbar vertebra fracture level: L1 Fracture type: closed Fracture morphology: wedge compression Qualified Code(s): S32.010A - Wedge compression fracture of first lumbar vertebra, initial encounter for closed fracture (2) CHF (congestive heart failure) Current Visit: Yes Status: Acute Assessment and plan: Clinically stable after an excellent dose of Lasix. Will follow. Qualifiers: Heart failure type: unspecified Heart failure chronicity: unspecified Qualified Code(s): I50.9 - Heart failure, unspecified (3) GI bleed Current Visit: No Status: Acute Assessment and plan: By history. With heme positive stool, this will be followed when he is discharged. It is not currently acute. Qualifiers: GI bleed type/associated pathology: unspecified gastrointestinal hemorrhage type Qualified Code(s): K92.2 - Gastrointestinal hemorrhage, unspecified (4) Atrial fibrillation Current Visit: Yes Status: Chronic Assessment and plan: Chronic with controlled rate. He is not on anticoagulation other than Eliquis because of his fall risk and GI bleeding problems. Qualifiers: Atrial fibrillation type: unspecified Qualified Code(s): I48.91 - Unspecified atrial fibrillation (5) Diabetes mellitus type 2 in nonobese Current Visit: Yes Status: Chronic Assessment and plan: Fair diabetic control. (6) Hypertension Current Visit: Yes Status: Chronic Assessment and plan: Adequate control. Qualifiers: Hypertension type: essential hypertension Qualified Code(s): I10 - Essential (primary) hypertension (7) Dementia Current Visit: Yes Status: Acute Assessment and plan: Apparently at baseline. Occasionally with sundowning but responsive to haloperidol. Qualifiers: Dementia type: unspecified type Dementia behavioral disturbance: without behavioral disturbance Qualified Code(s): F03.90 - Unspecified dementia w ithout behavioral disturbance - Subjective Interval history: Patient is without complaint. He states that his cough is essentially gone and his breathing is fine. He has no other problems. I reviewed his positive Hemoccult stool with patient and . They will follow with primary care provider, about a week after discharge. Patient has no complaint of chest discomfort, dyspnea, orthopnea, palpitations, nausea or vomiting, constipation or diarrhea, other changes in bowel habits, difficulty with urination, rash or itching, or other new complaints, except as mentioned above. Review of systems is otherwise negative. I discussed management of her care with nursing staff. Nursing knows that his sleeping better and less agitated, with the use of Haldol. - Constitutional Vitals: Temp Pulse Resp BP Pulse Ox 98.2 F 56 16 137/77 56 11/30/18 07:00 11/30/18 07:00 11/30/18 07:00 11/30/18 07:00 11/30/18 07:00 Exam: Examination: (Except as mentioned above): General: In no apparent distress. Alert and oriented 3. Nondiaphoretic. Head: Atraumatic and normocephalic. Respiratory: No use of accessory muscles. Lungs are clear throughout. Normal airflow. Cardiovascular: Regular rate and rhythm without murmur appreciated. Abdomen: Bowel sounds are normal. No hepatosplenomegaly mass or tenderness appreciated. Obese and therefore difficult to palpate deeply. Patient is examined upright in chair and this also limits exam. Extremities: No cyanosis clubbing or edema. Skin: Warm and non-diaphoretic with no new lesions noted. Internal Medicine: Result - Labs CBC & Chem 7: 11/29/18 04:56 11/29/18 04:56 Consult Discharge Plan - Plan Referrals: Kenny Mendoza DO [Primary Care Provider] -
[2018-11-30 14:02] LABS: BUN/Creatinine Ratio 16 (6-26); Blood Urea Nitrogen 19 mg/dL (8-23); Calcium 8.3 mg/dL (8.6-10.3); Carbon Dioxide 28 mEq/L (23-29); Chloride 106 mEq/L (98-107); Glucose 141 mg/dL (70-105); Magnesium 1.9 mg/dL (1.6-2.6); Osmolality,Calculated 295 (280-300); Potassium 3.8 mEq/L (3.5-5.1); Sodium 140 mEq/L (136-145); eGFR For Non-African Americans 58 (> 60)
[2018-12-01] MEDS: Ipratropium/Albuterol Neb 3 ML IH SCH ×3 (02:14→17:10)
[2018-12-01] MEDS: Multivit/Ca/Min/Fe/FA 1 TAB TABLET PO SCH (08:18)
[2018-12-01] MEDS: Apixaban 5 MG TABLET PO SCH ×2 (08:18→20:07)
[2018-12-01] MEDS: Furosemide 20 MG TABLET PO SCH (08:18)
--- NOTE | 2018-12-01 13:32 | Internal Med Progress Note ---
Addendum entered and electronically signed by Bro Bolivar MD 12/01/18 14:57: I have personally performed a face to face evaluation on this patient. I have r eviewed and agree with the care plan. History and Exam by me shows: Patient states that he is better. He notes continued improvement in his cough. However, he coughs frequently during the examination. This seems nonproductive. Nursing notes that he did not sleep well last night and is been somewhat agitated today. Of note, he did not receive haloperidol last evening. He has been more agitated and confused, today. Family is not present during this evaluation. He says that his was here earlier but left. Discussed care with other providers and/or nursing. Patient has no complaint of chest discomfort, dyspnea, orthopnea, palpitations, nausea or vomiting, constipation or diarrhea, other changes in bowel habits, difficulty with urination, rash or itching, or other new complaints, except as mentioned above. Review of systems is otherwise negative. Examination: (Except as mentioned above): General: In no apparent distress. Alert and oriented 3. Nondiaphoretic. Head: Atraumatic and normocephalic. Respiratory: No use of accessory muscles. Lungs are clear throughout. Normal airflow. Cardiovascular: Regular rate and rhythm without murmur appreciated. Abdomen: Bowel sounds are normal. No hepatosplenomegaly mass or tenderness appreciated. Obese and therefore difficult to palpate deeply. Patient is examined upright in chair and this also limits exam. Extremities: No cyanosis clubbing or edema. Skin: Warm and non-diaphoretic with no new lesions noted. We will resume therapy tomorrow. Discharge is planned in 2 days. Original Note: Date of Encounter: 12/01/18 Time of Encounter: 13:30 - Assessment and plan (1) Atrial fibrillation Current Visit: Yes Status: Chronic Assessment and plan: Rate and rhythm controlled. Continue eliquis Qualifiers: Atrial fibrillation type: unspecified Qualified Code(s): I48.91 - Unspecified atrial fibrillation (2) Diabetes mellitus type 2 in nonobese Current Visit: Yes Status: Chronic Assessment and plan: Controlled with current medication. Monitor fingerstick blood sugar. (3) Hypertension Current Visit: Yes Status: Chronic Assessment and plan: Controlled with current medication. Monitor blood pressure. Qualifiers: Hypertension type: essential hypertension Qualified Code(s): I10 - Essential (primary) hypertension (4) GI bleed Current Visit: Yes Status: Acute Assessment and plan: Stable. Follow up as outpatient. Qualifiers: GI bleed type/associated pathology: unspecified gastrointestinal hemorrhage type Qualified Code(s): K92.2 - Gastrointestinal hemorrhage, unspecified (5) Vertebral fracture Current Visit: Yes Status: Acute Assessment and plan: Continue PT and OT. Follow pain management. Stable at this time. Qualifiers: Encounter type: sequela Fracture of vertebra location: lumbar Lumbar vertebra fracture level: L1 Fracture type: closed Fracture morphology: wedge compression Qualified Code(s): S32.010S - Wedge compression fracture of first lumbar vertebra, sequela (6) CHF (congestive heart failure) Current Visit: Yes Status: Acute Assessment and plan: Stable. Continue current medication. Monitor for decompensation. Qualifiers: Heart failure type: unspecified Heart failure chronicity: unspecified Qualified Code(s): I50.9 - Heart failure, unspecified (7) Dementia Current Visit: Yes Status: Acute Assessment and plan: Continue supportive care. Qualifiers: Dementia type: unspecified type Dementia behavioral disturbance: without behavioral disturbance Qualified Code(s): F03.90 - Unspecified dementia without behavioral disturbance - Time Spent With Patient less than 15 minutes - Subjective Interval history: Sitting up and chair. at bedside. Denies any current complaints of pain. Difficult to obtain HPI due to dementia. - Constitutional Vitals: Temp Pulse Resp BP Pulse Ox 98.5 F 85 16 137/81 98 12/01/18 07:22 12/01/18 07:22 12/01/18 09:53 12/01/18 07:22 12/01/18 09:53 General appearance: Present: cooperative, A&O X 1, pleasant Exam: confused - Head Head exam: Present: atraumatic, normocephalic - Eye Eye exam: Present: PERRL, conjuntiva pink, sclera anicteric Pupils: Present: PERRL - Neck Neck exam general surgery: Present: supple, trachea midline. Absent: lymphadenopathy - Respiratory Respiratory exam: Present: CTAB. Absent: accessory muscle use, rales, rhonchi, wheezes - Cardiovascular Cardiovascular exam: Present: RRR, +S1, +S2. Absent: diastolic murmur, gallop, rubs, systolic murmur - GI/Abdominal GI/Abdominal exam: Present: normal bowel sounds, soft, no peritoneal signs. Absent: distended, tenderness - Extremities Exam Extremities exam: Present: warm, radial pulses palpable and symmetrical. Absent: calf tenderness, cyanotic, pedal edema - Neurological Exam Neurological exam: Present: CN II-XII intact, oriented X3, no focal deficits. Absent: pronater drift, facial droop, speech deficit - Skin Skin exam: Present: dry, intact Internal Medicine: Result - Labs CBC & Chem 7: 11/29/18 04:56 11/30/18 13:15 Labs: BMP 11/30/18 13:15 Sodium 140 Potassium 3.8 Chloride 106 Carbon Dioxide 28 BUN 19 Creatinine 1.20 Glucose 141 H Calcium 8.3 L Consult Discharge Plan - Plan Referrals: Kenny Mendoza DO [Primary Care Provider] -
[2018-12-02] MEDS: Ipratropium/Albuterol Neb 3 ML IH SCH ×3 (01:46→17:19)
[2018-12-02 05:41] LABS: Basophils % 0.4 %; Eosinophils # 0.5 K/mcL (0.0-0.6); Eosinophils % 5.3 %; Hematocrit 30.2 % (37.5-50.1); Immature Granulocytes % 0.4 % (0-4); Lymphocytes # 1.1 K/mcL (0.6-4.6); Lymphocytes % 11.4 %; Mean Corpuscular HGB Conc 29.8 g/dL (31.6-35.5); Mean Corpuscular Hemoglobin 23.8 pg (28.0-33.3); Mean Corpuscular Volume 79.9 fL (83.0-100.0); Mean Platelet Volume 9.1 fL (9.4-12.4); Monocytes # 0.7 K/mcL (0.0-1.3); Monocytes % 7.7 %; Neutrophils # 7.2 K/mcL (1.6-8.9); Platelet Count 223 K/mcL (140-400); Red Blood Count 3.78 M/mcL (4.19-5.50); Red Cell Distribution Width 18.6 % (11.5-14.5); Segmented Neutrophils % 74.8 %
[2018-12-02 05:55] LABS: BUN/Creatinine Ratio 18 (6-26); Blood Urea Nitrogen 19 mg/dL (8-23); Calcium 8.3 mg/dL (8.6-10.3); Carbon Dioxide 27 mEq/L (23-29); Chloride 109 mEq/L (98-107); Glucose 151 mg/dL (70-105); Osmolality,Calculated 295 (280-300); Potassium 3.5 mEq/L (3.5-5.1); Sodium 140 mEq/L (136-145); eGFR For Non-African Americans > 60 (> 60)
[2018-12-02] MEDS: Furosemide 20 MG TABLET PO SCH (07:33)
[2018-12-02] MEDS: Apixaban 5 MG TABLET PO SCH ×2 (07:33→20:43)
[2018-12-02] MEDS: Multivit/Ca/Min/Fe/FA 1 TAB TABLET PO SCH (07:34)
--- NOTE | 2018-12-02 11:29 | Internal Med Progress Note ---
Addendum entered and electronically signed by Bro Bolivar MD 12/02/18 11:36: I have personally performed a face to face evaluation on this patient. I have r eviewed and agree with the care plan. History and Exam by me shows: Nursing notes that patient has not been sleeping well last couple of nights, he is much more irritable with them. He is less responsive in therapy. He denies problems. Family is concerned that he is worse. Similar episodes have happened on each of his previous admissions. Discussed care with other providers and/or nursing. Patient has no complaint of chest discomfort, dyspnea, orthopnea, palpitations, nausea or vomiting, constipation or diarrhea, other changes in bowel habits, difficulty with urination, rash or itching, or other new complaints, except as mentioned above. Review of systems is otherwise negative. Examination: (Except as mentioned above): General: In no apparent distress. Alert and oriented 3? Nondiaphoretic. Patient is very sleepy during exam and this limits his responsiveness. Head: Atraumatic and normocephalic. Respiratory: No use of accessory muscles. Lungs are clear throughout. Normal airflow. Cardiovascular: Regular rate and rhythm without murmur appreciated. Abdomen: Bowel sounds are normal. No hepatosplenomegaly mass or tenderness appreciated. Obese and therefore difficult to palpate deeply. Extremities: No cyanosis clubbing or edema. Skin: Warm and non-diaphoretic with no new lesions noted. This may be his dementia complicated by altered sleep cycle. We will obtain a chest x-ray and a urine sample to make sure he has no other complications. His laboratory studies were unremarkable. He had episodes similar to this during his last admission here. I believe that his has unrealistic expectations, based on nursing comments. Discharge is planned for tomorrow. Original Note: Date of Encounter: 12/02/18 Time of Encounter: 11:18 - Assessment and plan (1) Atrial fibrillation Current Visit: Yes Status: Chronic Assessment and plan: Rate and rhythm controlled. Continue eliquis Qualifiers: Atrial fibrillation type: unspecified Qualified Code(s): I48.91 - Unspecified atrial fibrillation (2) Diabetes mellitus type 2 in nonobese Current Visit: Yes Status: Chronic Assessment and plan: Controlled with current medication. Monitor fingerstick blood sugar. (3) Hypertension Current Visit: Yes Status: Chronic Assessment and plan: Controlled with current medication. Monitor blood pressure. Qualifiers: Hypertension type: essential hypertension Qualified Code(s): I10 - Essential (primary) hypertension (4) GI bleed Current Visit: Yes Status: Acute Assessment and plan: hgb 9.0 Stable. Follow up as outpatient. Qualifiers: GI bleed type/associated pathology: unspecified gastrointestinal hemorrhage type Qualified Code(s): K92.2 - Gastrointestinal hemorrhage, unspecified (5) Vertebral fracture Current Visit: Yes Status: Acute Assessment and plan: Continue PT and OT. Follow pain management. Stable at this time. Qualifiers: Encounter type: sequela Fracture of vertebra location: lumbar Lumbar vertebra fracture level: L1 Fracture type: closed Fracture morphology: wedge compression Qualified Code(s): S32.010S - Wedge compression fracture of first lumbar vertebra, sequela (6) CHF (congestive heart failure) Current Visit: Yes Status: Acute Assessment and plan: Stable. Continue current medication. Monitor for decompensation. Qualifiers: Heart failure type: unspecified Heart failure chronicity: unspecified Qualified Code(s): I50.9 - Heart failure, unspecified (7) Dementia Current Visit: Yes Status: Acute Assessment and plan: Continue supportive care. Qualifiers: Dementia type: unspecified type Dementia behavioral disturbance: without behavioral disturbance Qualified Code(s): F03.90 - Unspecified dementia without behavioral disturbance (8) Cough Current Visit: Yes Status: Acute Assessment and plan: will order CXR and follow for results. - Time Spent With Patient 25 - 35 minutes - Subjective Interval history: participating with therapy. has been coughing more. Denies any current complaints of pain. Difficult to obtain HPI due to dementia. will order chest xray. - Constitutional Vitals: Temp Pulse Resp BP Pulse Ox 99.0 F 75 19 126/80 97 12/02/18 06:51 12/02/18 06:51 12/02/18 10:18 12/02/18 06:51 12/02/18 10:18 General appearance: Present: cooperative, A&O X 1, pleasant - Head Head exam: Present: atraumatic, normocephalic - Eye Eye exam: Present: PERRL, conjuntiva pink, sclera anicteric Pupils: Present: PERRL - Neck Neck exam general surgery: Present: supple, trachea midline. Absent: lymphadenopathy - Respiratory Respiratory exam: Absent: accessory muscle use, rales, rhonchi, wheezes Additional comments: congested cough, LLL rhonchi, clear throughout rest of lung diallo. - Cardiovascular Cardiovascular exam: Present: RRR, +S1, +S2. Absent: diastolic murmur, gallop, rubs, systolic murmur - GI/Abdominal GI/Abdominal exam: Present: normal bowel sounds, soft, no peritoneal signs. Abs ent: distended, tenderness - Extremities Exam Extremities exam: Present: warm, radial pulses palpable and symmetrical. Absent: calf tenderness, cyanotic, pedal edema - Neurological Exam Neurological exam: Present: CN II-XII intact, oriented X3, no focal deficits. Absent: pronater drift, facial droop, speech deficit - Skin Skin exam: Present: dry, intact Internal Medicine: Result - Labs CBC & Chem 7: 12/02/18 05:10 12/02/18 05:10 Labs: Short CBC 12/02/18 Range/Units 05:10 WBC 9.6 (4.3-11.1) K/mcL Hgb 9.0 L (12.9-16.9) g/dL Hct 30.2 L (37.5-50.1) % Plt Count 223 (140-400) K/mcL Neutrophils # 7.2 (1.6-8.9) K/mcL BMP 12/02/18 05:10 Sodium 140 Potassium 3.5 Chloride 109 H Carbon Dioxide 27 BUN 19 Creatinine 1.06 Glucose 151 H Calcium 8.3 L Consult Discharge Plan - Plan Referrals: Kenny Mendoza DO [Primary Care Provider] -
[2018-12-02] MEDS ORDERED: Furosemide 40 MG/4 ML VIAL IVP ONE (13:09)
[2018-12-02 20:06] LABS: Bilirubin,Urine Negative (Negative); Blood,Urine Large (Negative); Clarity,Urine Slightly Cloudy (Clear); Glucose,Urine (UA) Normal (Normal); Ketones,Urine Negative (Negative); Leukocyte Esterase,Urine Negative (Negative); Nitrite,Urine Negative (Negative); PH,Urine 5.5 pH Units (5.0-8.0); Protein,Urine >=300 mg/dL (Neg-Trace); Specific Gravity,Urine 1.025 (1.010-1.025); Urobilinogen,Urine Normal (Normal)
[2018-12-02 20:09] LABS: Amorphous Sediment,Urine Few (Few); Color,Urine Dark Yellow (Yellow); Hyaline Casts,Urine Few per lpf (None-Few)
[2018-12-03] MEDS: Ipratropium/Albuterol Neb 3 ML IH SCH ×2 (02:00→09:53)
[2018-12-03 05:48] LABS: BUN/Creatinine Ratio 18 (6-26); Blood Urea Nitrogen 21 mg/dL (8-23); Calcium 8.3 mg/dL (8.6-10.3); Carbon Dioxide 27 mEq/L (23-29); Chloride 109 mEq/L (98-107); Glucose 138 mg/dL (70-105); Osmolality,Calculated 301 (280-300); Potassium 3.7 mEq/L (3.5-5.1); Sodium 143 mEq/L (136-145); eGFR For Non-African Americans 58 (> 60)
[2018-12-03 08:24] VITALS: BP 143/84
[2018-12-03] MEDS ORDERED: Furosemide 40 MG TABLET PO SCH (09:00)
[2018-12-03] MEDS: Apixaban 5 MG TABLET PO SCH (09:57)
[2018-12-03] MEDS: Multivit/Ca/Min/Fe/FA 1 TAB TABLET PO SCH (09:57)
--- NOTE | 2018-12-03 11:05 | Discharge Summary ---
Addendum entered and electronically signed by Bro Bolivar MD 12/03/18 11:33: I have personally performed a face to face evaluation on this patient. I have r eviewed and agree with the care plan. History and Exam by me shows: Patient is doing better today. Staff notes that he is more responsive. Even though he is sleepy, not as bad as it was yesterday. He denies cough, dyspnea, other problems. Discussed care with other providers and/or nursing. Patient has no complaint of chest discomfort, dyspnea, orthopnea, palpitations, nausea or vomiting, constipation or diarrhea, other changes in bowel habits, difficulty with urination, rash or itching, or other new complaints, except as mentioned above. Review of systems is otherwise negative. Examination: (Except as mentioned above): General: In no apparent distress. Alert and oriented 3. Nondiaphoretic. Head: Atraumatic and normocephalic. Respiratory: No use of accessory muscles. Lungs are clear throughout. Normal airflow. Cardiovascular: Regular rate and rhythm without murmur appreciated. Abdomen: Bowel sounds are normal. No hepatosplenomegaly mass or tenderness appreciated. Obese and therefore difficult to palpate deeply. Patient is examined upright in chair and this also limits exam. Extremities: No cyanosis clubbing or edema. Skin: Warm and non-diaphoretic with no new lesions noted. I think that his dementia and altered sleep pattern will be an intermittent problem, as long as it here. His chest x-ray and urinalysis, other lab work have failed to show any abnormalities that should cause him to have altered mental status. We expressed the need for jail care and his is disinterested in this. He is to go home and she will involve him in outpatient physical and occupational therapy. Original Note: - NOTES TO OUTPATIENT PROVIDER Notes to Outpatient Provider: follow up with PCP, lasix dose increased to 40mg daily for 3 days, then back to 20mg daily. Date of Encounter: 12/03/18 Time of Encounter: 11:03 - Discharge Diagnosis (1) Atrial fibrillation Priority: Secondary Status: Chronic Comments: rate and rythm controlled. continue current meds. Qualifiers: Atrial fibrillation type: unspecified Qualified Code(s): I48.91 - Un specified atrial fibrillation (2) Diabetes mellitus type 2 in nonobese Priority: Secondary Status: Chronic Comments: Controlled with current medication. Monitor fingerstick blood sugar. Follow up with PCP. (3) Hypertension Priority: Secondary Status: Chronic Comments: Controlled with current medication. Monitor blood pressure. Follow up with PCP. Qualifiers: Hypertension type: essential hypertension Qualified Code(s): I10 - Essential (primary) hypertension (4) GI bleed Priority: Secondary Status: Chronic Comments: Follow up as outpatient. Qualifiers: GI bleed type/associated pathology: unspecified gastrointestinal hemorrhage type Qualified Code(s): K92.2 - Gastrointestinal hemorrhage, unspecified (5) Vertebral fracture Priority: Secondary Status: Acute Comments: Follow up with ortho as scheduled. Continue outpatient PT and OT. Qualifiers: Encounter type: sequela Fracture of vertebra location: lumbar Lumbar vertebra fracture level: L1 Fracture type: closed Fracture morphology: wedge compression Qualified Code(s): S32.010S - Wedge compression fracture of first lumbar vertebra, sequela (6) CHF (congestive heart failure) Priority: Secondary Status: Acute Comments: Lasix increased a 40 mg PO daily for 3 days, then resumed normal dose at 20 mg daily. Follow up within one week with PCP. Qualifiers: Heart failure type: unspecified Heart failure chronicity: unspecified Qualified Code(s): I50.9 - Heart failure, unspecified (7) Dementia Priority: Secondary Status: Acute Comments: Continue supportive care. 24 hour supervision. Qualifiers: Dementia type: unspecified type Dementia behavioral disturbance: without behavioral disturbance Qualified Code(s): F03.90 - Unspecified dementia without behavioral disturbance Hospital course: Mr. Boswell is a 78 year old male discharging to home with was 24 hour supervision. Patient has vertebral fracture from a fall. Will continue outpatient physical therapy and occupational therapy. Patient has history of dementia and is a poor historian. Denies any pain or discomfort at this time. Lasix dose has been increased to 40 mg daily for 3 days, then to resume 20 mg daily. Follow up with PCP. instructed to use Haldol over the next few days as needed twice a day if patient becomes agitated or combative in home environment. Discharge discussed with: patient, family, nurse, social work - Time Spent with Patient Total time spent providing and/or coordinating discharge services: Time spent: Less than 30 minutes - Discharge Medications Prescriptions: No Action Atorvastatin [Lipitor] 40 mg PO DAILY Quetiapine Fumarate [Seroquel] 25 mg PO BID Ondansetron ODT [Zofran ODT] 4 mg PO Q6H PRN tab.rapdis PRN Reason: Nausea Apixaban [Eliquis] 5 mg PO BID #60 tablet Furosemide [Lasix] 20 mg PO QAM #0 Loperamide [Imodium] 2 mg PO Q4H PRN #0 PRN Reason: Diarrhea Potassium Chloride 10 meq PO BID tab.er.prt DULoxetine [Cymbalta] 20 mg PO DAILY #30 capsule. Metoprolol [Lopressor] 25 mg PO BID #60 tablet Omeprazole [PriLOSEC] 40 mg PO DAILY #30 cap Lisinopril [Zestril] 5 mg PO DAILY tablet Acetaminophen [Tylenol] 500 mg PO Q6HR PRN tablet PRN Reason: mild pain Home Medications: Atorvastatin [Lipitor] 40 mg PO DAILY 07/13/17 [History] DULoxetine [Cymbalta] 20 mg PO DAILY #30 capsule. 05/10/18 [Rx] Metoprolol [Lopressor] 25 mg PO BID #60 tablet 05/10/18 [Rx] Omeprazole [PriLOSEC] 40 mg PO DAILY #30 cap 05/10/18 [Rx] Acetaminophen [Tylenol] 500 mg PO Q6HR PRN tablet 06/17/18 [Rx] Lisinopril [Zestril] 5 mg PO DAILY tablet 06/17/18 [Rx] Quetiapine Fumarate [Seroquel] 25 mg PO BID 07/28/18 [History] Apixaban [Eliquis] 5 mg PO BID #60 tablet 08/01/18 [Rx] Loperamide [Imodium] 2 mg PO Q4H PRN #0 08/01/18 [Rx] Ondansetron ODT [Zofran ODT] 4 mg PO Q6H PRN tab.rapdis 08/01/18 [Rx] Potassium Chloride 10 meq PO BID tab.er.prt 11/24/18 [Rx] DiphenhydraMINE [Benadryl] 25 mg PO Q6HR PRN capsule 12/03/18 [Rx] Furosemide [Lasix] 40 mg PO DAILY 2 Days #2 tablet 12/03/18 [Rx] Haloperidol [Haldol] 3 mg PO BID PRN 5 Days #12 tablet 12/03/18 [Rx] Lidocaine Patch [Lidoderm 5% patch] 1 each TP DAILY 7 Days #7 adh..patch 12/03/18 [Rx] Multivit/Ca/Min/Fe/FA [Thera M Plus] 1 tab PO DAILY tablet 12/03/18 [Rx] Allergies/Adverse Reactions: Allergy/AdvReac Type Severity Reaction Status Date / Time No Known Allergies Allergy Verified 11/20/18 12:24 Date of admission: 11/24/18 13:36 Primary care physician: Kenny Santos Colopy Consults: 11/24/18 14:08 Consult to Occupational Therapy [CONS] Routine Comment: eval falls uti Reason for Consult: eval Does patient have active BEDREST order?: No Is patient medically & hemodynamically stable?: Yes Consult to Physical Therapy [CONS] Routine Comment: eval Reason for Consult: eval Does patient have active BEDREST order?: No Is patient medically & hemodynamically stable?: Yes Consult to Recreational Therapy [CONS] Routine Comment: Consult to Biologist [CONS] Routine Reason for SW Consult: d/c planning Discharging clinician: Bro Bolivar Anticipated date of discharge: 12/03/18 - Constitutional Vitals: Temp Pulse Resp BP Pulse Ox 97.8 F 60 15 143/84 92 12/03/18 08:23 12/03/18 08:23 12/03/18 08:23 12/03/18 08:23 12/03/18 08:23 General appearance: Present: cooperative, A&O X 1, pleasant Exam: Confused due to dementia - Head Head exam: Present: atraumatic, normocephalic - Eye Eye exam: Present: PERRL, conjuntiva pink, sclera anicteric Pupils: Present: PERRL - Neck Neck exam general surgery: Present: supple, trachea midline. Absent: lymphadenopathy - Respiratory Respiratory exam: Present: CTAB. Absent: accessory muscle use, rales, rhonchi, wheezes - Cardiovascular Cardiovascular exam: Present: RRR, +S1, +S2. Absent: diastolic murmur, gallop, rubs, systolic murmur - GI/Abdominal GI/Abdominal exam: Present: normal bowel sounds, soft, no peritoneal signs. Absent: distended, tenderness - Extremities Exam Extremities exam: Present: warm, radial pulses palpable and symmetrical. Absent: calf tenderness, cyanotic, pedal edema - Neurological Exam Neurological exam: Present: CN II-XII intact, oriented X3, no focal deficits. Absent: pronater drift, facial droop, speech deficit - Skin Skin exam: Present: dry, intact - Patient Status Disposition: Home, Self-Care Condition: Fair Functional capacity at discharge: uses cane/walker Overall status at discharge: patient is progressing back to baseline - Discharge Instructions Follow Up With: Kenny Mendoza DO [Primary Care Provider] - - Diet and Activity Activity: as per physical therapy Diet: diabetic diet
== END 2018-12-03 15:00 | disposition home or self-care (01) | DRG 560 ==
LOC: INPGRE 13:36